=== PATIENT | male | born 1960 | race Caucasian/White ===

== ENCOUNTER 2019-01-29 13:10 | Inpatient (IN) | payer OTHER ==
[2019-01-29] MEDS ORDERED: IPRATROPIUM BROM 0.5MG/2.5ML ONE (14:05)
[2019-01-29] MEDS ORDERED: ALBUTEROL 2.5 MG/3 ML NEB SOL ONE (14:05)
[2019-01-29] MEDS ORDERED: FUROSEMIDE 40 MG/4 ML VIAL ONE (14:15)
[2019-01-29 14:18] LABS: Absolute Lymphocytes (CBC) 0.9 K/uL (0.7-4.9); Absolute Monocytes 0.6 K/uL (0.1-1.3); Absolute Neutrophil 6.9 K/uL (1.8-8.0); Eosinophils % 0.3 % (0-4.4); Lymphocytes % 10.3 % (15.3-44.8); MPV 10.4 fL (7.6-11.3); Monocytes % 7.6 % (3.3-12.3); RBC Red Blood Cell Count 5.86 M/uL (4.33-5.43)
[2019-01-29 14:20] LABS: Protime INR 3.13
[2019-01-29 14:28] LABS: Hematocrit 40.5 % (39.6-49.0)
--- NOTE | 2019-01-29 14:36 | RAD REPORT ---
EXAM DESCRIPTION: [facility] Single View01/29/2019 2:23 pm CLINICAL HISTORY: Chest pain COMPARISON: 2016 FINDINGS: The myles are blurred which may indicate minimal interstitial pulmonary edema. Heart is mod erately enlarged
[2019-01-29 14:43] LABS: ALT/SGPT 17 U/L (12-78); AST/SGOT 21 U/L (15-37); Albumin 3.2 g/dL (3.4-5.0); Alkaline Phosphatase 102 U/L (45-117); BUN Blood Urea Nitrogen 14 mg/dL (7-18); Bicarbonate 35 mmol/L (21-32); Bilirubin Direct 0.5 mg/dL (0-0.2); Bilirubin Total 1.6 mg/dL (0.2-1.0); Glucose Level 88 mg/dL (74-106); Magnesium 1.9 mg/dL (1.8-2.4); NT PRO-BNP 7460 pg/mL (<125); Potassium 4.3 mmol/L (3.5-5.1); Protein, Total 6.6 g/dL (6.4-8.2); Sodium Level 139 mmol/L (136-145); Troponin (Emerg Dept Use Only) < 0.02 ng/mL (0.0-0.045)
[2019-01-29 14:59] LABS: Arterial Blood Carboxyhemoglob 4.5 % (0-1.5); Blood Gas Oxyhemoglobin 91.1 % (94-97)
--- NOTE | 2019-01-29 16:19 | EDPHYS ---
Physician Documentation [facility] Name: Sean Hayden Age: 58 yrs Sex: Male : 1960 Arrival Date: 01/29/2019 Time: 13:13 Bed 3 Private MD: Gene Gomes ED Physician Leandro Soni HPI: 01/29 16:06 This 58 yrs old Male presents to ER via Ambulatory with complaints of gs Breathing Difficulty. 16:06 The patient has shortness of breath at rest. Onset: The symptoms/episode began/occurred gs 3 day(s) ago, and became worse and became persistent. Duration: The symptoms are continuous, and are markedly worse than the original presentation. The patient's shortness of breath is aggravated by exertion. Associated signs and symptoms: Pertinent negatives: chest pain, fever. Severity of symptoms: At their worst the symptoms were incapacitating in the emergency department the symptoms are unchanged. The patient has experienced similar episodes in the past, a few times. Historical: - Allergies: 13:19 No Known Allergies; - Home Meds: 17:44 Xarelto 20 mg oral tab 1 tab once daily [Active]; atorvastatin 40 mg oral tab 1 tab aj1 once daily [Active]; gabapentin 300 mg oral cap 1 cap 3 times per day [Active]; tramadol 50 mg Oral tab 1 tab every 8 hours as needed [Active]; metoprolol tartrate 50 mg Oral tab 1 tab once daily [Active]; amlodipine-benazepril 40-20 mg oral cap 1 cap once daily [Active]; paroxetine HCl 30 mg Oral tab 1 tab once daily [Active]; ProAir HFA 90 mcg/actuation inhalation HFAA 1 puff every 6 hours [Active]; - PMHx: 13:19 Atrial Fib; CHF; COPD; Hypertension; Hyperlipidemia; - PSHx: 13:19 None; hj - Immunization history:: Adult Immunizations up to date. - Social history:: Smoking status: Patient uses tobacco products. - Ebola Screening: : Patient denies travel to an Ebola-affected area in the 21 days before illness onset. ROS: 16:06 All other systems are negative. gs Exam: 16:06 Head/Face: Normocephalic, atraumatic. Eyes: Pupils equal round and reactive to light, gs extra-ocular motions intact. Lids and lashes normal. Conjunctiva and sclera are non-icteric and not injected. Cornea within normal limits. Periorbital areas with no swelling, redness, or edema. ENT: Nares patent. No nasal discharge, no septal abnormalities noted. Tympanic membranes are normal and external auditory canals are clear. Oropharynx with no redness, swelling, or masses, exudates, or evidence of obstruction, uvula midline. Mucous membranes moist. Neck: Trachea midline, no thyromegaly or masses palpated, and no cervical lymphadenopathy. Supple, full range of motion without nuchal rigidity, or vertebral point tenderness. No Meningismus. Chest/axilla: Normal chest wall appearance and motion. Nontender with no deformity. No lesions are appreciated. 16:06 Abdomen/GI: Soft, non-tender, with normal bowel sounds. No distension or tympany. No guarding or rebound. No evidence of tenderness throughout. Back: No spinal tenderness. No costovertebral tenderness. Full range of motion. Skin: Warm, dry with normal turgor. Normal color with no rashes, no lesions, and no evidence of cellulitis. MS/ Extremity: Pulses equal, no cyanosis. Neurovascular intact. Full, normal range of motion. Neuro: Awake and alert, GCS 15, oriented to person, place, time, and situation. Cranial nerves II-XII grossly intact. Motor strength 5/5 in all extremities. Sensory grossly intact. Cerebellar exam normal. Normal gait. 16:06 Constitutional: The patient appears alert, awake, in obvious distress, severely distressed. 16:06 Cardiovascular: Rate: tachycardic, Rhythm: irregularly irregular, Pulses: no pulse deficits are appreciated, Edema: 3+ edema to level of left midcalf and right midcalf. 16:06 ECG was reviewed by the Attending Physician. 16:06 Respiratory: severe repiratory distress is noted, Respirations: tachypnea, Breath sounds: rales, are located in both bases. Vital Signs: 13:19 BP 106 / 70; Pulse 106; Resp 24; Temp 98.5(TE); Pulse Ox 74% on R/A; Weight 167.83 kg; hj Height 5 ft. 9 in. (175.26 cm); Pain 0/10; 13:20 Pulse Ox 65% on R/A; hj 14:00 BP 103 / 71; Pulse 86; Resp 24; Pulse Ox 98% on BiPAP; aj1 14:30 BP 105 / 74; Pulse 81; Resp 22; Temp 98.2(O); Pulse Ox 96% on BiPAP; aj1 15:00 BP 100 / 67; Pulse 62; Resp 24; Pulse Ox 100% on BiPAP; aj1 15:30 BP 95 / 56; Pulse 67; Resp 20; Pulse Ox 98% on BiPAP; aj1 16:00 BP 109 / 66; Pulse 72; Resp 20; Pulse Ox 98% on BiPAP; aj1 16:30 BP 112 / 82; Pulse 66; Resp 22; Pulse Ox 97% on BiPAP; aj1 17:00 BP 108 / 90; Pulse 75; Resp 22; Pulse Ox 99% on BiPAP; aj1 17:29 BP 111 / 94; Pulse 89; Resp 20; Temp 97.0(TE); Pulse Ox 100% on BiPAP; aj1 18:00 BP 107 / 76; Pulse 92; Resp 20; Pulse Ox 97% on BiPAP; aj1 18:33 BP 117 / 62; Pulse 82; Resp 20; Pulse Ox 99% on BiPAP; aj1 19:00 BP 123 / 73; Pulse 82; Resp 20; Pulse Ox 100% on BiPAP; aj1 19:30 BP 115 / 80; Pulse 78; Resp 20; Pulse Ox 95% on BiPAP; aj1 20:00 BP 117 / 75; Pulse 82; Resp 22; Pulse Ox 98% on BiPAP; aj1 20:23 BP 101 / 50; Pulse 88; Resp 22; Pulse Ox 100% on BiPAP; aj1 13:19 Body Mass Index 54.64 (167.83 kg, 175.26 cm) hj 13:20 RT paged for BIPAP hj MDM: 13:43 Patient medically screened. 16:16 Differential diagnosis: CHF exacerbation, Chronic Obstructive Pulmonary Disease gs Myocardial Infarction pneumonia. Data reviewed: vital signs, nurses notes, lab test result(s), EKG, radiologic studies. Counseling: I had a detailed discussion with the patient and/or guardian regarding: the need for further work-up and treatment in the hospital. 01/29 13:46 Order name: Basic Metabolic Panel; Complete Time: 15:48 [facility] 01/29 13:46 Order name: CBC with Diff; Complete Time: 15:48 [facility] 01/29 13:46 Order name: LFT's; Complete Time: 15:48 [facility] 01/29 13:46 Order name: Magnesium; Complete Time: 15:48 [facility] 01/29 13:46 Order name: NT PRO-BNP; Complete Time: 15:48 01/29 13:46 Order name: PT-INR; Complete Time: 15:48 [facility] 01/29 13:46 Order name: Troponin (emerg Dept Use Only); Complete Time: 15:48 [facility] 01/29 13:46 Order name: XRAY Chest (1 view); Complete Time: 15:48 [facility] 01/29 13:46 Order name: Blood Culture Adult (2) [facility] 01/29 13:46 Order name: Lactate; Complete Time: 15:48 [facility] 01/29 13:48 Order name: BIPAP 01/29 14:28 Order name: ABG; Complete Time: 15:48 01/29 15:43 Order name: Lactate; Complete Time: 16:43 [facility] 01/29 19:49 Order name: Lactate Sepsis 2 HR Follow-up [facility] 01/29 13:46 Order name: EKG; Complete Time: 13:48 [facility] 01/29 13:46 Order name: Cardiac monitoring; Complete Time: 13:47 [facility] 01/29 13:46 Order name: EKG - Nurse/Tech; Complete Time: 14:07 [facility] 01/29 13:46 Order name: IV Saline Lock; Complete Time: 13:47 [facility] 01/29 13:46 Order name: Labs collected and sent; Complete Time: 13:47 [facility] 01/29 13:46 Order name: O2 Per Protocol; Complete Time: 13:47 01/29 13:46 Order name: O2 Sat Monitoring; Complete Time: 13:47 [facility] EC:06 Rate is 85 beats/min. Rhythm is irregularly irregular, A fib. QRS interval is normal. gs QT interval is normal. T waves are Flattened. Clinical impression: Abnormal EKG without significant change. Interpreted by me. Administered Medications: 14:06 Drug: Albuterol - atroVENT (3:1) (2.5 mg - 0.5 mg) 3 ml Route: Nebulizer; aj1 15:10 Follow up: Response: No adverse reaction aj1 14:06 Drug: Lasix 80 mg Route: IVP; Site: left antecubital; [facility] 15:10 Follow up: Response: No adverse reaction aj1 Disposition: 16:16 Critical Care:. Disposition: 01/29/19 16:18 Hospitalization ordered by Alonso Barton for Inpatient Admission. Preliminary diagnosis are Acute respiratory failure, Acute systolic (congestive) heart failure. - Bed requested for Telemetry/MedSurg (Inpatient). - Status is Inpatient Admission. [facility] - Condition is Stable. - Problem is new. - Symptoms have improved. UTI on Admission? No Critical care time excluding procedures: 16:16 Critical care time: Bedside Care: 10 minutes, Consultation: 10 minutes, Family gs Intervention: 10 minutes. Total time: 30 minutes Signatures: Dispatcher [employer] EDCayla Sarabia RN RN aj Steve Duncan RN RN Leandro Soni MD MD Tonia Jordan Corrections: (The following items were deleted from the chart) 17:55 16:18 Hospitalization Ordered by Alonso Barton MD for Inpatient Admission. Preliminary eb diagnosis is Acute respiratory failure; Acute systolic (congestive) heart failure. Bed requested for Telemetry/MedSurg (Inpatient). Status is Inpatient Admission. Condition is Stable. Problem is new. Symptoms have improved. UTI on Admission? No. 20:24 17:55 01/29/2019 16:18 Hospitalization Ordered by Alonso Barton MD for Inpatient [facility] Admission. Preliminary diagnosis is Acute respiratory failure; Acute systolic (congestive) heart failure. Bed requested for Telemetry/MedSurg (Inpatient). Status is Inpatient Admission. Condition is Stable. Problem is new. Symptoms have improved. UTI on Admission? No. eb
--- NOTE | 2019-01-29 16:19 | ER ---
Nurse's Notes [facility] Name: Sean Hayden Age: 58 yrs Sex: Male : 1960 Arrival Date: 01/29/2019 Time: 13:13 Bed 3 Private MD: Gene Gomes Diagnosis: Acute respiratory failure;Acute systolic (congestive) heart failure Presentation: 01/29 13:17 Presenting complaint: Patient states: hx of COPD using CPAP, i have this SOB for 3-4 hj weeks ago and its getting worse; reports fever and chills; reports bilateral leg swelling; denies chest pain;. Transition of care: patient was not received from another setting of care. Onset of symptoms was January 29, 2019. Risk Assessment: Do you want to hurt yourself or someone else? Patient reports no desire to harm self or others. Initial Sepsis Screen: Does the patient meet any 2 criteria? No. Patient's initial sepsis screen is negative. Does the patient have a suspected source of infection? No. Patient's initial sepsis screen is negative. Care prior to arrival: None. 13:17 Method Of Arrival: Ambulatory 13:17 Acuity: IHSAN 1 hj 13:38 Acuity: IHSAN 1 aj1 Triage Assessment: 13:25 Respiratory: Onset: The symptoms/episode began/occurred suddenly, the patient has aj1 severe shortness of breath. Historical: - Allergies: 13:19 No Known Allergies; hj - Home Meds: 17:44 Xarelto 20 mg oral tab 1 tab once daily [Active]; atorvastatin 40 mg oral tab 1 tab aj1 once daily [Active]; gabapentin 300 mg oral cap 1 cap 3 times per day [Active]; tramadol 50 mg Oral tab 1 tab every 8 hours as needed [Active]; metoprolol tartrate 50 mg Oral tab 1 tab once daily [Active]; amlodipine-benazepril 40-20 mg oral cap 1 cap once daily [Active]; paroxetine HCl 30 mg Oral tab 1 tab once daily [Active]; ProAir HFA 90 mcg/actuation inhalation HFAA 1 puff every 6 hours [Active]; - PMHx: 13:19 Atrial Fib; CHF; COPD; Hypertension; Hyperlipidemia; hj - PSHx: 13:19 None; hj - Immunization history:: Adult Immunizations up to date. - Social history:: Smoking status: Patient uses tobacco products. - Ebola Screening: : Patient denies travel to an Ebola-affected area in the 21 days before illness onset. Screenin:48 Abuse screen: Denies threats or abuse. Denies injuries from another. Nutritional aj1 screening: No deficits noted. Tuberculosis screening: No symptoms or risk factors identified. 18:13 Fall Risk No fall in past 12 months (0 pts). Secondary diagnosis (15 points) impaired aj1 mobility, IV access (20 points). Ambulatory Aid- None/Bed Rest/Nurse Assist (0 pts). Gait- Impaired (20 pts.). Mental Status- Oriented to own ability (0 pts). Total Kerr Fall Scale indicates High Risk Score (45 or more points). Frequent Obs/Assessments Occuring Family Present and informed to notify staff if the need to leave the bedside. Assessment: 13:25 Reassessment: Patient is 65% on 3L nc, patient was immediately placed on aj1 Non-rebreather, O2 sat up to 95%. 13:30 Reassessment: provider in room;. hj 13:30 General: Appears distressed, Behavior is calm, cooperative. Pain: Denies pain. Neuro: aj1 Level of Consciousness is awake, alert, obeys commands, Oriented to person, place, time, situation. Cardiovascular: Reports shortness of breath, Denies chest pain, Heart tones S1 S2 present Rhythm is irregular. Respiratory: Reports shortness of breath Airway is patent Respiratory effort is even, labored, Respiratory pattern is regular, symmetrical, tachypnea Breath sounds with rhonchi bilaterally. Breath sounds with wheezes. GI: Abdomen is round distended, Abd is soft and non tender X 4 quads. : No signs and/or symptoms were reported regarding the genitourinary system. EENT: No signs and/or symptoms were reported regarding the EENT system. Derm: Skin is healthy with good turgor, Skin is dry, Skin is dusky, perioral cyanosis noted. Musculoskeletal: No signs and/or symptoms reported regarding the musculoskeletal system. Circulation, motion, and sensation intact. 13:32 Reassessment: informed sec to page RT for BIPAP;. hj 13:37 Reassessment: RT at bedside, patient placed on Bi-PAP, O2 sat maintaining in upper aj1 90's. Patient is alert, oriented and talkative at this time. 14:00 Reassessment: Patient and/or family updated on plan of care and expected duration. Pain aj1 level reassessed. General: Appears in no apparent distress. comfortable, Behavior is calm, cooperative, appropriate for age. Pain: Denies pain. Neuro: Level of Consciousness is awake, alert, obeys commands. Cardiovascular: Rhythm is irregular. Respiratory: Airway is patent Respiratory effort is even, unlabored, Respiratory pattern is regular, symmetrical. Derm: Skin is dusky, perioral cyanosis no longer noted. 15:05 Reassessment: Patient and/or family updated on plan of care and expected duration. Pain aj1 level reassessed. General: Appears in no apparent distress. comfortable, Behavior is calm, cooperative, appropriate for age. Pain: Denies pain. Neuro: Level of Consciousness is awake, alert, obeys commands, Oriented to person, place, time, situation. Cardiovascular: Rhythm is irregular. Respiratory: Airway is patent Respiratory effort is even, unlabored, Respiratory pattern is regular, symmetrical. Derm: Skin is pink, warm \T\ dry. normal. Musculoskeletal: Circulation, motion, and sensation intact. 16:10 Reassessment: Patient appears in no apparent distress at this time. No changes from aj1 previously documented assessment. Patient and/or family updated on plan of care and expected duration. Pain level reassessed. Patient is alert, oriented x 3, equal unlabored respirations, skin warm/dry/pink. 17:10 Reassessment: Patient appears in no apparent distress at this time. No changes from aj1 previously documented assessment. Patient and/or family updated on plan of care and expected duration. Pain level reassessed. Patient is alert, oriented x 3, equal unlabored respirations, skin warm/dry/pink. Dr. Barton at bedside. 18:12 Reassessment: Patient and/or family updated on plan of care and expected duration. Pain aj1 level reassessed. General: Appears in no apparent distress. comfortable, Behavior is calm, cooperative, appropriate for age. Pain: Denies pain. Neuro: Level of Consciousness is awake, alert, obeys commands, Oriented to person, place, time, situation. Cardiovascular: Patient's skin is warm and dry. Rhythm is atrial fibrillation. Respiratory: Airway is patent Respiratory effort is even, unlabored, Respiratory pattern is regular, symmetrical. Derm: Skin is pink, warm \T\ dry. normal. Musculoskeletal: Circulation, motion, and sensation intact. 18:15 Reassessment: Attempted to call reports to GARY Petit on 4th floor, equal opportunity director aj1 states that nurse is in a room and will call back for report. 19:15 Reassessment: Patient appears in no apparent distress at this time. No changes from aj1 previously documented assessment. Patient and/or family updated on plan of care and expected duration. Pain level reassessed. Patient is alert, oriented x 3, equal unlabored respirations, skin warm/dry/pink. 20:21 Reassessment: Patient and/or family updated on plan of care and expected duration. Pain aj1 level reassessed. Reassessment: Patient was taken off of Bi-PAP by RT and placed on O2 \T\6L nc for transport upstairs. Patient was transported up stairs via wheelchair by FELIZ Santiago. General: Appears in no apparent distress. comfortable, Behavior is calm, cooperative, appropriate for age. Pain: Denies pain. Neuro: Level of Consciousness is awake, alert, obeys commands, Oriented to person, place, time, situation. Cardiovascular: Patient's skin is warm and dry. Rhythm is atrial fibrillation. Respiratory: Airway is patent Respiratory effort is even, unlabored, Respiratory pattern is regular, symmetrical. Derm: Skin is pink, warm \T\ dry. normal. Vital Signs: 13:19 BP 106 / 70; Pulse 106; Resp 24; Temp 98.5(TE); Pulse Ox 74% on R/A; Weight 167.83 kg; hj Height 5 ft. 9 in. (175.26 cm); Pain 0/10; 13:20 Pulse Ox 65% on R/A; hj 14:00 BP 103 / 71; Pulse 86; Resp 24; Pulse Ox 98% on BiPAP; aj1 14:30 BP 105 / 74; Pulse 81; Resp 22; Temp 98.2(O); Pulse Ox 96% on BiPAP; aj1 15:00 BP 100 / 67; Pulse 62; Resp 24; Pulse Ox 100% on BiPAP; aj1 15:30 BP 95 / 56; Pulse 67; Resp 20; Pulse Ox 98% on BiPAP; aj1 16:00 BP 109 / 66; Pulse 72; Resp 20; Pulse Ox 98% on BiPAP; aj1 16:30 BP 112 / 82; Pulse 66; Resp 22; Pulse Ox 97% on BiPAP; aj1 17:00 BP 108 / 90; Pulse 75; Resp 22; Pulse Ox 99% on BiPAP; aj1 17:29 BP 111 / 94; Pulse 89; Resp 20; Temp 97.0(TE); Pulse Ox 100% on BiPAP; aj1 18:00 BP 107 / 76; Pulse 92; Resp 20; Pulse Ox 97% on BiPAP; aj1 18:33 BP 117 / 62; Pulse 82; Resp 20; Pulse Ox 99% on BiPAP; aj1 19:00 BP 123 / 73; Pulse 82; Resp 20; Pulse Ox 100% on BiPAP; aj1 19:30 BP 115 / 80; Pulse 78; Resp 20; Pulse Ox 95% on BiPAP; aj1 20:00 BP 117 / 75; Pulse 82; Resp 22; Pulse Ox 98% on BiPAP; aj1 20:23 BP 101 / 50; Pulse 88; Resp 22; Pulse Ox 100% on BiPAP; aj1 13:19 Body Mass Index 54.64 (167.83 kg, 175.26 cm) hj 13:20 RT paged for BIPAP hj ED Course: 13:13 Patient arrived in ED. rg4 13:14 Gene Gomes MD is Private Physician. rg4 13:18 Triage completed. hj 13:19 Arm band placed on right wrist. hj 13:25 Leandro Soni MD is Attending Physician. gs 13:30 Cayla Jean, GARY is Primary Nurse. aj1 13:30 Inserted saline lock: 18 gauge in left antecubital area, using aseptic technique. Blood aj1 collected. 13:30 Initial lab(s) drawn, by me, sent to lab. First set of blood cultures drawn by me. aj1 13:53 EKG done, by valve technician. reviewed by Leandro Soni MD. at1 14:19 X-ray completed. Portable x-ray completed in exam room. Patient tolerated procedure mh1 well. 14:21 XRAY Chest (1 view) In Process Unspecified. EDMS 15:49 Patient has correct armband on for positive identification. aj1 16:17 Alonso Barton MD is Hospitalizing Provider. gs 18:13 No provider procedures requiring assistance completed. Patient admitted, IV remains in aj1 place. 18:48 Report given to GARY Petit on 4th floor. aj1 Administered Medications: 14:06 Drug: Albuterol - atroVENT (3:1) (2.5 mg - 0.5 mg) 3 ml Route: Nebulizer; aj1 15:10 Follow up: Response: No adverse reaction aj 14:06 Drug: Lasix 80 mg Route: IVP; Site: left antecubital; aj1 15:10 Follow up: Response: No adverse reaction aj1 Outcome: 16:18 Decision to Hospitalize by Provider. gs 20:23 Admitted to Tele accompanied by tech, via wheelchair, with oxygen, with chart. aj1 20:23 Condition: improved 20:23 Discharge instructions given to patient, Instructed on the need for admit, Demonstrated understanding of instructions. 20:24 Patient left the ED. aj1 Signatures: Dispatcher [employer] EDMS Cayla Jean RN RN aj1 Tigist Madsen 1 Berkley Duran, story editor EKG Tat1 Steve Duncan RN RN hj Garcia, Rubi 4 Leandro Soni MD MD Corrections: (The following items were deleted from the chart) 13:33 13:32 Reassessment: informed sec to page RT for BIPAP; [facility] 14:02 13:17 Acuity: IHSAN 3 [facility] 15:47 14:00 BP 103 / 71; Pulse 86bpm; Resp 24bpm; Pulse Ox 98% BiPAP; [place] [id number] 15:47 14:30 BP 105 / 74; Pulse 81bpm; Resp 22bpm; Pulse Ox 96% BiPAP; Temp 98.2F Oral; [place] [id number] 15:50 14:30 BP 105 / 74; Pulse 81bpm; Resp 22bpm; Pulse Ox 96% RA; Temp 98.2F Oral; [place] [id number] 15:50 14:00 BP 103 / 71; Pulse 86bpm; Resp 24bpm; Pulse Ox 98% RA; [place] [id number] 15:50 15:30 BP 95 / 56; Pulse 67bpm; Resp 20bpm; Pulse Ox 98% RA; [place] [id number] 15:50 15:00 BP 100 / 67; Pulse 62bpm; Resp 24bpm; Pulse Ox 100% RA; [place] [id number]
[2019-01-29] MEDS ORDERED: ONDANSETRON 4 MG/2 ML VIAL IV PRN (20:45)
[2019-01-29] MEDS ORDERED: ACETAMINOPHEN 500 MG TAB PO PRN (20:45)
[2019-01-29] MEDS: METOPROLOL TAR 50 MG TAB PO SCH (21:00)
--- NOTE | 2019-01-30 04:33 | HP ---
Date of Admission: 01/29/2019 Primary Care Physician: Dr. Gomes. Consultants: Dr. Harden with Cardiology. Chief Complaint: Shortness of breath. History Of Present Illness: The patient is a 58-year-old male with past medical history of congestiv e heart failure; atrial fibrillation, on anticoagulation; COPD; hypertension, who was in his usual [facility] until 3 days prior to admission when the patient had sudden onset of shortness of breat h gradually worsening and becoming more persistent. The patient's symptoms are moderate, continuous, and similar to his previous. The patient said his shortness of breath was worse with exertion. The patient states he is able to take his medications as prescribed. Denies any chest pain, fever, chil ls, nausea, or vomiting. No cough or sputum production. The patient decided to come to the emergenc y department for further evaluation. Upon arrival, his O2 saturations were in the 60s. He was place d on BiPAP, which improved his symptoms. Workup showed an elevated lactate. White cell count was no rmal. ABG showed pH is 7.5, pCO2 was 43, pO2 was 77, bicarb was 33. His chest x-ray was consistent with pulmonary edema. The patient was given 80 mg of Lasix which improved his condition. The patien t was then referred for admission. When seen in the ER, he was awake, alert, oriented x3, in respira tory distress, on BiPAP. Past Medical History: Atrial fibrillation, on anticoagulation; COPD; congestive heart failure; cance r of the lips; hypertension; hyperlipidemia; GERD; depression. The patient has also had KS. Past Surgical History: None. Allergies: NO KNOWN DRUG ALLERGIES. Medications: List reviewed. Social History: The patient is a former smoker. No current alcohol use. Lives at home. Family History: Father had lung disease, COPD. Mother also had lung disease. Review of Systems: 10-point systems reviewed, negative except as per HPI. Physical Examination: Vital Signs: Blood pressure 106/70, pulse 106, respirations 24, temperature 98.5. O2 74% on room ai r, as low as 65% on room air, improved to 97% on BiPAP. HEENT: Normocephalic, atraumatic. PERRLA. EOMI. Dry mucous membranes. Oropharynx is clear. Conj unctivae are anicteric. Neck: Supple. The patient has jugular venous distention. Trachea midline. CV: S1, S2. Peripheral pulses present. Respiratory: Diminished breath sounds. Crackles present. The patient is tachypneic with use of acc essory muscles. Gastrointestinal: Abdomen is soft, nontender, nondistended. Positive bowel sounds. Extremities: No clubbing, cyanosis. The patient has 2+ peripheral edema bilaterally. No calf tende rness. Neuro: Cranial nerves 2 through 12 intact grossly. No focal neurological deficit. Speech is normal . Skin: No rashes. The patient has chronic venous stasis changes of lower extremities. Psych: Mood is somewhat anxious. Affect is congruent with mood. Insight and judgment are fair. Labs: WBC 8.6, H and H 13.2/40.5, platelets 129, neutrophils 80%. INR is 3.13. ABG; pH 7.5, pCO2 4 3, pO2 77, bicarb 33. Sodium 139, potassium 4.3, chloride 98, CO2 35, BUN 14, creatinine 1.01, gluco se 88. Lactic acid 2.3, repeat lactate 1.6. Calcium 8.5, magnesium 1.9. BNP 7460. Troponin less t singh 0.02. Blood cultures pending. Chest x-ray shows myles blurred, may indicate minimal interstitial pulmonary edema. Heart is moderately enlarged. Assessment: 1.Acute respiratory failure secondary to congestive heart failure. The patient currently requiring BiPAP, somewhat improved with Lasix. We will continue to monitor. Place on continuous pulse oximete r. 2.Acute congestive heart failure exacerbation. The patient has history of diastolic dysfunction. 3.Mild pulmonary hypertension. 4.Morbid obesity. 5.Metabolic acidosis. 6.Microcytic anemia likely due to iron deficiency. 7.Atrial fibrillation, chronic, on anticoagulation. INR is supratherapeutic at this time. 8.Chronic obstructive pulmonary disease, chronic bronchitis. We will start on albuterol p.r.n. 9.Essential hypertension, stable. We will resume home medications as appropriate. 10.Deep vein thrombosis prophylaxis. The patient is already on anticoagulation. Plan: Admit the patient to Med-Surg, place as inpatient. We will consult Cardiology. We will start on CHF guidelines with beta damon, EMIR inhibitor, and continue with Lasix. We will monitor I's an d O's. Strictly daily weights. Length of stay greater than 2 midnights. ELISE Voice ID: [id number]
[2019-01-30 06:02] LABS: Absolute Lymphocytes (CBC) 0.6 K/uL (0.7-4.9); Absolute Monocytes 0.5 K/uL (0.1-1.3); Basophils % 0.9 % (0-1.3); Eosinophils % 0.5 % (0-4.4); Lymphocytes % 8.6 % (15.3-44.8); MPV 9.2 fL (7.6-11.3); Monocytes % 7.5 % (3.3-12.3); RBC Red Blood Cell Count 5.59 M/uL (4.33-5.43)
[2019-01-30 06:22] LABS: Potassium 3.8 mmol/L (3.5-5.1)
--- NOTE | 2019-01-30 08:30 | EKG ---
Test Date: 2019-01-29 Test Time: 13:53:03 Photogrammetric Tech: LUKE MEASUREMENT RESULTS: Intervals: Rate: 85 OH: QRSD: 98 QT: 364 QTc: 433 Sparks: P: OH: QRS: 14 T: -5 INTERPRETIVE STATEMENTS: Atrial fibrillation Low voltage QRS Incomplete right bundle branch block ST & T wave abnormality, consider anterior ischemia or digitalis effect Abnormal ECG Compared to ECG 05/25/2016 12:42:23 Ventricular premature complex(es) no longer present Electronically Signed On 01-30-19 08:29:11 CDT by Neeraj Johnson
[2019-01-30] MEDS ORDERED: POTASSIUM CL SA 10 MEQ TAB PO ONE (09:00)
[2019-01-30] MEDS ORDERED: LISINOPRIL 10 MG TAB PO SCH (09:00)
[2019-01-30] MEDS: FUROSEMIDE 40 MG/4 ML VIAL IV SCH ×2 (09:00→17:53)
[2019-01-30] MEDS: METOPROLOL TAR 50 MG TAB PO SCH ×2 (09:00→21:00)
[2019-01-30] MEDS: ALBUTEROL 2.5 MG/3 ML NEB SOL NEB PRN ×2 (09:08→14:05)
[2019-01-30] MEDS ORDERED: TRAMADOL HCL 50 MG TAB PO PRN (09:50)
[2019-01-30] MEDS ORDERED: HOME MED 1 EA UNK (Amlodipine Besylate/Benazepril [Amlodipine-Benazepril 10-20 Mg] 1 EACH) PO SCH (09:50)
[2019-01-30] MEDS: PARoxetine HCl 10 MG TAB PO SCH (11:09)
[2019-01-30] MEDS: RIVAROXABAN 20 MG TABLET PO SCH (11:09)
[2019-01-30] MEDS: AMLODIPINE 10 MG TAB PO SCH (11:09)
--- NOTE | 2019-01-30 13:25 | CON ---
History Of Present Illness: Mr. Hayden is a 58-year-old who came to the hospital with dyspnea. He now feels better. He receives some diuretics, and feels better. Mr. Hayden has chronic atrial fib. He is on Xarelto and metoprolol to control the heart rate and prevent strokes. He has underlying h ypertension, morbid obesity. He is a continuing cigarette smoker, also has obstructive lung disease. His dyspnea was fairly brief duration 2 or 3 days, getting worse. He noted more swelling in his fe et. Outpatient Medications: Amlodipine 10, benazepril 20, metoprolol 50, tramadol 50, Xarelto 20, gabape ntin 300 t.i.d., atorvastatin 40, paroxetine. Physical Examination: Vital Signs: 5 feet 9 inches, 370 pounds. Lungs: Few basilar crackles. Heart: Irregular heart rate in the 70s. No significant murmur or gallop. Abdomen: Soft. Extremities: Reveal a lot of changes. There is a chronic venous stasis changes. There is a healed and scabbed over ulcer on his right aguirre. Distal pulses are easily palpable on the right, diminished on the left. Impression: The patient had heart failure, probably from dietary noncompliance. I would probably se nd him home on daily Lasix, teach him about sodium restriction. Overall, his prognosis is very poor as long as he continues to be so obese and smoke, but I doubt if there is much we can do, but the johnnie son for the hospitalization was congestive heart failure, which is now greatly improved. He is ready to be discharged fairly soon. RICK Voice ID: [id number] Report ID: [id number]
[2019-01-30] MEDS: IPRATROPIUM BROM 0.5MG/2.5ML NEB SCH ×2 (14:05→19:55)
[2019-01-30] MEDS: GABAPENTIN 300 MG CAP PO SCH ×2 (14:32→21:48)
--- NOTE | 2019-01-30 15:56 | ECHO ---
HEIGHT: 5 ft 9 in WEIGHT: 370 lb 0 oz DATE OF STUDY: 01/30/[address]: Alonso Barton MD 2-DIMENSIONAL: YES M.MODE: YES DOPPLER: YES COLOR FLOW: YES TDS: YES PORTABLE: NO DEFINITY: NO BUBBLE STUDY: NO DIAGNOSIS: CONGESTIVE HEART FAILURE CARDIAC HISTORY: CATHERIZATION: NO SURGERY: NO PROSTHETIC VALVE: NO PACEMAKER: NO MEASUREMENTS (cm) DIASTOLIC (NORMALS) SYSTOLIC (NORMALS) IVSd 1.3 (0.6-1.2) LA Diam 4.3 (1.9-4.0) LVEF 55% LVIDd 5.0 (3.5-5.7) LVIDs 3.5 (2.0-3.5) %FS 29% LVPWd 1.3 (0.6-1.2) Ao Diam 2.5 (2.0-3.7) 2 DIMENSIONAL ASSESSMENT: RIGHT ATRIUM: NORMAL LEFT ATRIUM: DILATED RIGHT VENTRICLE: NORMAL LEFT VENTRICLE: LEFT VENTRICULAR HYPERTROPHY TRICUSPID VALVE: NORMAL MITRAL VALVE: NORMAL PULMONIC VALVE: NORMAL AORTIC VALVE: NORMAL PERICARDIAL EFFUSION: NONE AORTIC ROOT: NORMAL LEFT VENTRICULAR WALL MOTION: NORMAL DOPPLER/COLOR FLOW: TECHNICALLY DIFFICULT STUDY. NO AORTIC STENOSIS, AORTIC REGURGITATION OR MITRAL REGURGITATION. COMMENTS: NORMAL LEFT VENTRICULAR EJECTION FRACTION. LEFT VENTRICULAR HYPERTROPHY. DILATED LEFT ATRIUM. ATRIAL FIBRILLATION. TECHNICALLY DIFFICULT STUDY. TECHNOLOGIST: Dejuan ARIAS
--- NOTE | 2019-01-30 16:46 | PN ---
Date of Progress Note: 01/30/2019 Subjective: The patient is seen and examined. Chart reviewed and case discussed with RN. The patie nt continued BiPAP last night. Still requiring BiPAP. States his shortness of breath is slightly be tter. Swelling is going down. Medications: List reviewed. Physical Examination: Vital Signs: Temperature 97.6, heart rate 95, blood pressure 91/61, respirations 28, O2 84% on BiPAP , 60% FiO2. General: Awake, alert, oriented x3. Appears older than stated age. Morbidly obese male. CV: S1, S2 irregularly irregular. Respiratory: Diminished breath sounds. Some wheezing heard. Crackles present. Gastrointestinal: Abdomen is soft, nontender, nondistended. Positive bowel sounds. Extremities: No clubbing, cyanosis. The patient has 3+ edema to bilateral lower extremities. Skin: Chronic venous stasis changes. Neurologic: Nonfocal. Laboratory Data: Sodium 142, potassium 3.8, chloride 99, CO2 38. BUN 15, creatinine 0.93, glucose 1 00, calcium 8.1, magnesium 2. WBC 7.3, H and H 12.6 and 42, platelets 98, neutrophils 82%. Assessment And Plan: A 58-year-old male with: 1.Acute respiratory failure secondary to congestive heart failure, currently on BiPAP. We will cont inue to wean as tolerated. 2.Acute diastolic heart failure exacerbation. We will repeat echocardiogram. We will continue on c ongestive heart failure guidelines. Cardiology has been consulted. We will monitor I's and O's and continue daily weights. Sodium restriction and fluid restriction. 3.Mild pulmonary hypertension. 4.Morbid obesity, BMI 54, counseled. 5.Metabolic acidosis, improved. Lactate is normalized. 6.Microcytic anemia, likely due to iron deficiency. Continue to monitor H and H, transfuse if neede d. 7.Chronic atrial fibrillation, rate controlled on Xarelto. 8.Chronic obstructive pulmonary disease, chronic bronchitis. The patient does have some wheezing, m ay be getting into an acute exacerbation. We will continue albuterol nebulizers. We will give some steroids as well. 9.Essential hypertension, stable. Resume home medications. 10.Deep vein thrombosis prophylaxis. The patient is already on Xarelto. SA/MODL Voice ID: [id number] Report ID: [id number]
[2019-01-30] MEDS: ATORVASTATIN 40 MG TAB PO SCH (21:48)
[2019-01-30] MEDS: METHYLPREDNISOLONE 40 MG INJ IV SCH (21:48)
[2019-01-31] MEDS: IPRATROPIUM BROM 0.5MG/2.5ML NEB SCH ×4 (02:00→20:00)
[2019-01-31 06:35] LABS: Absolute Lymphocytes (CBC) 0.4 K/uL (0.7-4.9); Absolute Monocytes 0.1 K/uL (0.1-1.3); Absolute Neutrophil 4.9 K/uL (1.8-8.0); Basophils % 0.2 % (0-1.3); Lymphocytes % 7.4 % (15.3-44.8); MPV 9.8 fL (7.6-11.3); Monocytes % 1.6 % (3.3-12.3); RBC Red Blood Cell Count 5.69 M/uL (4.33-5.43)
[2019-01-31 06:40] LABS: BUN Blood Urea Nitrogen 12 mg/dL (7-18); Glucose Level 128 mg/dL (74-106); Potassium 4.4 mmol/L (3.5-5.1); Sodium Level 142 mmol/L (136-145)
[2019-01-31 06:41] LABS: Bicarbonate 42 mmol/L (21-32)
[2019-01-31] MEDS: ALBUTEROL 2.5 MG/3 ML NEB SOL NEB PRN (07:50)
[2019-01-31 08:22] LABS: Platelet Estimate DECR; Urine White Blood Cell Casts OK
[2019-01-31 08:23] LABS: Anisocytosis 1+; Blood Morphology Comment NOTED (NOT SEEN); Poikilocytosis 1+
[2019-01-31] MEDS: METOPROLOL TAR 50 MG TAB PO SCH ×2 (09:00→20:22)
[2019-01-31] MEDS: AMLODIPINE 10 MG TAB PO SCH (09:55)
[2019-01-31] MEDS: GABAPENTIN 300 MG CAP PO SCH ×3 (09:57→20:22)
[2019-01-31] MEDS: BENAZEPRIL 20 MG TAB PO SCH (09:57)
[2019-01-31] MEDS: PARoxetine HCl 10 MG TAB PO SCH (09:57)
[2019-01-31] MEDS: POTASSIUM CL SA 10 MEQ TAB PO SCH (09:58)
[2019-01-31] MEDS: METHYLPREDNISOLONE 40 MG INJ IV SCH ×2 (09:59→20:23)
[2019-01-31] MEDS: FUROSEMIDE 40 MG/4 ML VIAL IV SCH ×2 (10:00→16:48)
[2019-01-31] MEDS: RIVAROXABAN 20 MG TABLET PO SCH (10:02)
--- NOTE | 2019-01-31 13:08 | PN ---
Mr. Hayden seems to be doing better with diuresis. His ejection fraction is normal. He has diastol ic dysfunction, morbid obesity, atrial fib, all causing fluid retention. Perhaps he should go home o n a higher dose of Lasix. Overall, his prognosis is very poor. Really the only way to foresee any w ay that he could have a better prognosis would be for him to lose at least 100 pounds of his body kashif ght and stop smoking. He is at risk of heart and vascular disease that will be lethal if he does not make those changes. At this point, he is stable enough to be discharged home. CARMEN/PARVEEN Voice ID: [id number] Report ID: [id number]
--- NOTE | 2019-01-31 16:02 | PN ---
Date of Progress Note: 01/31/2019 Subjective: The patient is seen and examined, chart reviewed and case discussed with RN. The patient is still having significant shortness of breath , becomes hypoxic when taken off BiPAP. Medications: List reviewed. Physical Examination: Vital Signs: Temperature 97.1, heart rate 100, blood pressure 97/61, respirations 19, and O2 94% on 75% FiO2 on BiPAP. General: Awake, alert, oriented x3, in mild respiratory distress, morbidly obese male. CV: S1 and S2, irregularly irregular. Peripheral pulses diminished. Respiratory: Diminished breath sounds and crackles present. Gastrointestinal: Abdomen is soft, nontender, and nondistended. Positive bowel sounds. No guarding or rigidity. Extremities: No clubbing or cyanosis. The patient has 2+ edema, bilateral lower extremities. Neurologic: Nonfocal. Laboratory Data: Sodium 142, potassium 4.4, chloride 98, CO2 42, BUN 12, creatinine 0.85, glucose 128, calcium 8.5. WBC 5.4, H and H 13 and 43, platelets 99, neutrophils 90%. Blood cultures, no growth to date. Echocardiogram shows EF of 55%, left ventricular hypertrophy, dilated left atrium. Assessment: A 58-year-old male with: 1. Acute respiratory failure secondary to congestive heart failure. We will continue on BiPAP for now, difficult to wean, the patient becomes very hypoxic. 2. Acute diastolic heart failure exacerbation. Ejection fraction is 55%. Continue congestive heart failure guidelines. Monitor daily weights. Apparently, the patient's initial weight on intake was a reported weight, not from scale, therefore the discrepancy between initial and today's weight. 3. Mild pulmonary hypertension. 4. Hypertensive heart disease. 5. Morbid obesity, BMI 54. 6. Metabolic acidosis, improved. 7. Microcytic anemia due to iron deficiency. Continue to monitor H and H, transfuse if hemoglobin less than 7. 8. Chronic atrial fibrillation, rate controlled, currently on Xarelto for anticoagulation. 9. Chronic obstructive pulmonary disease, chronic bronchitis. Continue nebulizer treatments. Continue steroids. 10. Essential hypertension, stable. 11. Deep vein thrombosis prophylaxis, the patient is on Xarelto. Plan: Continue to wean off BiPAP, likely discharge in the next 24-48 hours depending on clinical response. /PARVEEN Voice ID: [id number] Report ID: [id number] MTDD
[2019-01-31 17:25] VITALS: BMI 49.8
[2019-01-31] MEDS: ATORVASTATIN 40 MG TAB PO SCH (20:22)
[2019-01-31] MEDS: MELATONIN 3 MG TABLET PO PRN (22:50)
[2019-02-01] MEDS: IPRATROPIUM BROM 0.5MG/2.5ML NEB SCH ×4 (02:00→19:50)
[2019-02-01 05:14] LABS: Absolute Lymphocytes (CBC) 0.3 K/uL (0.7-4.9); Absolute Monocytes 0.1 K/uL (0.1-1.3); Absolute Neutrophil 6.2 K/uL (1.8-8.0); Basophils % 0.3 % (0-1.3); Hematocrit 40.1 % (39.6-49.0); Lymphocytes % 4.9 % (15.3-44.8); MPV 9.4 fL (7.6-11.3); Monocytes % 1.6 % (3.3-12.3); RBC Red Blood Cell Count 5.37 M/uL (4.33-5.43)
[2019-02-01 05:32] LABS: BUN Blood Urea Nitrogen 13 mg/dL (7-18); Bicarbonate 38 mmol/L (21-32); Glucose Level 159 mg/dL (74-106); Sodium Level 139 mmol/L (136-145)
[2019-02-01] MEDS: ALBUTEROL 2.5 MG/3 ML NEB SOL NEB PRN ×3 (08:05→19:50)
[2019-02-01] MEDS: POTASSIUM CL SA 10 MEQ TAB PO SCH (09:12)
[2019-02-01] MEDS: METOPROLOL TAR 50 MG TAB PO SCH ×2 (09:12→21:11)
[2019-02-01] MEDS: AMLODIPINE 10 MG TAB PO SCH (09:13)
[2019-02-01] MEDS: RIVAROXABAN 20 MG TABLET PO SCH (09:13)
[2019-02-01] MEDS: BENAZEPRIL 20 MG TAB PO SCH (09:13)
[2019-02-01] MEDS: GABAPENTIN 300 MG CAP PO SCH ×3 (09:13→21:11)
[2019-02-01] MEDS: PARoxetine HCl 10 MG TAB PO SCH (09:14)
[2019-02-01] MEDS: METHYLPREDNISOLONE 40 MG INJ IV SCH ×2 (09:14→21:11)
[2019-02-01] MEDS: FUROSEMIDE 40 MG/4 ML VIAL IV SCH ×2 (09:14→16:42)
--- NOTE | 2019-02-01 15:06 | PN ---
Date of Progress Note: 02/01/2019 Subjective: Patient seen and examined. Chart reviewed and case discussed with RN. The patient was initially on 6 liters via nasal cannula; however, throughout the day has progressively gotten worse, unable to be weaned down to his home level of O2. The patient now requiring Venturi mask, unable to ambulate at all. Medications: List reviewed. Physical Examination: Vital Signs: Temperature 97.5, heart rate 86, blood pressure 93/60, respirations 18, O2 is 93% on 15 liters via Ventimask. General: Awake, alert, and oriented x3, appears older than stated age, in some mild respiratory dist ress, morbidly obese male. CV: S1, S2, irregularly irregular. Peripheral pulses weak. Respiratory: Diminished breath sounds. Rhonchi heard. No use of accessory muscles. No stridor. Gastrointestinal: Abdomen is soft, nontender, nondistended. Positive bowel sounds. No guarding or rigidity. Extremities: No clubbing, cyanosis. The patient has 2+ edema in bilateral lower extremities. Neurologic: Nonfocal. Laboratory Data: Sodium 139, potassium 4, chloride 97, CO2 38, BUN 13, creatinine 0.7, glucose 159, and calcium 8.5. WBC 6.6, H and H 12.1 and 48.1, platelets 95, neutrophils 93%. Blood cultures, no growth to date. Sputum culture is pending. Assessment And Plan: A 58-year-old male with; 1.Acute respiratory failure secondary to congestive heart failure and chronic obstructive pulmonary disease. The patient now back onto Ventimask, difficult to wean, patient unable to ambulate at all. 2.Acute diastolic heart failure exacerbation. EF 55%. Continue diuresis. CHF guidelines. Appreci ate Dr. Johnson' input. The patient's fluid balance is negative. 3.Chronic obstructive pulmonary disease, chronic bronchitis, may be starting to develop an acute exa cerbation. Continue IV steroids and nebulizer treatments. We will consult Pulmonology. 4.Chronic atrial fibrillation, rate controlled. Continue Xarelto. 5.Microcytic anemia due to iron deficiency. We will continue to monitor H and H, transfuse as neede d. 6.Metabolic acidosis, improved. 7.Morbid obesity, BMI 54. 8.Essential hypertension, stable. 9.Deep venous thrombosis prophylaxis. The patient on Xarelto. SA/MODL Voice ID: [id number] Report ID: [id number]
[2019-02-01] MEDS: DULERA 100/5 (MOMETASONE/FORMOTEROL) INHALER IH SCH ×2 (16:42→21:11)
[2019-02-01] MEDS: MELATONIN 3 MG TABLET PO PRN (21:11)
[2019-02-01] MEDS: ATORVASTATIN 40 MG TAB PO SCH (21:11)
[2019-02-02] MEDS: IPRATROPIUM BROM 0.5MG/2.5ML NEB SCH ×4 (02:00→19:50)
[2019-02-02] MEDS: PARoxetine HCl 10 MG TAB PO SCH (09:10)
[2019-02-02] MEDS: DULERA 100/5 (MOMETASONE/FORMOTEROL) INHALER IH SCH (09:10)
[2019-02-02] MEDS: FUROSEMIDE 40 MG/4 ML VIAL IV SCH ×2 (09:10→16:07)
[2019-02-02] MEDS: METHYLPREDNISOLONE 40 MG INJ IV SCH (09:10)
[2019-02-02] MEDS: GABAPENTIN 300 MG CAP PO SCH ×3 (09:10→21:14)
[2019-02-02] MEDS: AMLODIPINE 10 MG TAB PO SCH (09:10)
[2019-02-02] MEDS: RIVAROXABAN 20 MG TABLET PO SCH (09:11)
[2019-02-02] MEDS: POTASSIUM CL SA 10 MEQ TAB PO SCH (09:11)
[2019-02-02] MEDS: BENAZEPRIL 20 MG TAB PO SCH (09:11)
[2019-02-02] MEDS: METOPROLOL TAR 50 MG TAB PO SCH ×2 (09:11→21:14)
[2019-02-02] MEDS: ARFORMOTEROL TARTRATE 15 MCG/2 ML VIAL.NEB NEB SCH ×2 (13:35→19:49)
[2019-02-02 13:58] LABS: Arterial Blood Carboxyhemoglob 1.9 % (0-1.5); Blood Gas Oxyhemoglobin 87.6 % (94-97); Blood O2 Saturation 89.8 % (92-98.5)
--- NOTE | 2019-02-02 17:05 | P.CNS ---
Date of Consult: 02/02/19 Reason for Consult: Respiratory failure COPD Chief Complaint: Shortness of breath History of Present Illness: Patient is 58 years of age with a history of COPD heavy 2 pack-a-day smoker was admitted with worsening right-sided redness in his right leg worsening shortness of breath he was found to be hypoxic hypercapnic respiratory failure with worsening lower extremity edema has a history of LA about 5 years ago history of COPD patient takes Spiriva at home also complains of back pain radiating to his left history of sleep apnea compliant with his CPAP patient does have oxygen at home also complaining of testicular swelling you do Allergies No Known Allergies Allergy (Verified 01/30/19 02:48) Home Medications: Amlodipine Besylate/Benazepril [Amlodipine-Benazepril 10-20 mg] 1 each PO DAILY 01/30/19 Atorvastatin Calcium [Lipitor] 40 mg PO BEDTIME 01/30/19 Gabapentin 300 mg PO TID 01/30/19 Metoprolol Tartrate [Lopressor*] 50 mg PO DAILY 01/30/19 Paroxetine HCl [Paxil] 30 mg PO DAILY 01/30/19 Rivaroxaban [Xarelto*] 20 mg PO DAILY 01/30/19 Tramadol HCl [Ultram] 50 mg PO Q8H PRN 01/30/19 Furosemide [Lasix] 40 mg PO DAILY #30 tab 02/02/19 Mometasone/Formoterol [Dulera 100 Mcg/5 Mcg Inhaler] 2 puff IH BID #1 inhaler Spironolactone [Aldactone] 25 mg PO DAILY #30 tab 02/02/19 predniSONE [Deltasone] 10 mg PO BID #10 tab 02/02/19 - Past Medical/Surgical History Diabetic: No -: cancer of lips -: COPD -: CHF -: afib - Family History Father Medical History: Lung disease, Other (see notes) Notes: COPD Mother Medical History: Lung disease - Social History Smoking Status: Current every day smoker Alcohol use: No CD- Drugs: No Caffeine use: No Place of Residence: Home Review of Systems General: Weakness Respiratory: Cough, Shortness of Breath Cardiovascular: Edema Physical Examination Temp Pulse Resp BP Pulse Ox 97.6 F 77 14 116/74 93 02/02/19 12:00 02/02/19 12:00 02/02/19 12:00 02/02/19 16:07 02/02/19 12:00 General: Alert, Oriented x3 HEENT: Atraumatic Neck: Supple Respiratory: Expiratory wheezes Cardiovascular: Edema (3+ edema extremities changes on lower extremity right worse than left appears to be chronic), Irregular heart rate/rhythm Gastrointestinal: Normal bowel sounds, Soft and benign - Problems (1) Respiratory failure Current Visit: Yes Status: Acute Plan: Patient admitted with acute on chronic respiratory failure history of COPD smokes 2 packs a day hypoxic hypercapnic patient's echo shows left ventricular hypertrophy most likely diastolic dysfunction chest x-ray of suggestive of some volume overload he needs to continue with the Spiriva at home Hada brought Wanna or Dulera not both patient had been console not to smoke needs at least 4- 5 L of nasal cannula oxygen in addition to diuretics follow with me in 2 weeks he does have sleep apnea currently on CPAP Qualifiers: Chronicity: acute on chronic
[2019-02-02] MEDS: MELATONIN 3 MG TABLET PO PRN (21:14)
[2019-02-02] MEDS: ATORVASTATIN 40 MG TAB PO SCH (21:14)
[2019-02-02] MEDS: predniSONE 20 MG TAB PO SCH (21:14)
[2019-02-03] MEDS: IPRATROPIUM BROM 0.5MG/2.5ML NEB SCH ×3 (01:15→16:00)
[2019-02-03] MEDS: ALBUTEROL 2.5 MG/3 ML NEB SOL NEB PRN (01:15)
--- NOTE | 2019-02-03 04:50 | DS ---
Date of Discharge: 02/02/2019 Consultants: Dr. Castano with Pulmonology, Dr. Johnson with Cardiology. Procedures: None. Admitting Diagnoses: 1.Acute respiratory failure. 2.Acute congestive heart failure exacerbation. 3.Acute chronic obstructive pulmonary disease. 4.Morbid obesity, BMI 50. 5.Atrial fibrillation, controlled ventricular rate. 6.Mild pulmonary hypertension. 7.Metabolic acidosis. 8.Microcytic anemia due to iron deficiency. 9.Essential hypertension. Discharge Diagnoses: 1.Acute on chronic respiratory failure, resolved. The patient uses 4 and to 4.5 L at home secondary to chronic obstructive pulmonary disease and congestive heart failure. 2.Acute diastolic heart failure exacerbation, EF 55%, improved. 3.Chronic obstructive pulmonary disease with acute exacerbation, improving. 4.Chronic atrial fibrillation, rate controlled on Xarelto. 5.Microcytic anemia due to iron deficiency, stable. 6.Metabolic acidosis resolved. 7.Morbid obesity, BMI of 54. 8.Essential hypertension, stable. 9.Lymphedema. 10.Nicotine dependence with cigarette smoking, continues. Hospital Course: The patient is a 58-year-old male with CHF, AFib, COPD, hypertension comes in with shortness of breath. The patient had elevated BNP. O2 saturations were in the 60s. He is on home o xygen at around 4 L. The patient was placed on BiPAP. The patient was acidotic. His chest x-ray re vealed pulmonary edema and interstitial changes. He was started on CHF guidelines and was diuresed. The patient responded well to treatment. He was seen by Cardiology, Dr. Johnson. Echocardiogram was also done which showed EF of 55%. The patient does have mild pulmonary hypertension. He was counse led regarding his tobacco use and was recommended to have weight loss bariatric surgery and to improv e his diet and exercise regimen. The patient voiced understanding. The patient also developed acute COPD exacerbation. He was started on steroids and nebulizer treatme nts. Dr. Castano was consulted. The patient was difficult to wean off BiPAP, did require Ventimask as well. The patient was finally able to be weaned, still requiring about 5 L O2, which is a little bit higher than his baseline. The patient was able to ambulate with physical therapy, did not get s hort of breath. Saturations remained in the 90s with 5 L of O2. The patient overall did well and reeder s been cleared for discharge. He was sent home in a stable condition. Activity: As tolerated. Medications: As per medication reconciliation list. Diet: Low-sodium diet with having 1500 mL fluid restriction. Followup: Follow up with primary care physician in 2-3 days. Follow up with [facility] machine operator, Dr. Jeniffer dunne in 2 weeks. Follow up with executive admin, Dr. Castano in 2 weeks. Return to ER for worsening con dition. Medications: As per medication reconciliation list. Physical Examination: Vital signs: Stable, afebrile. General: Awake, alert, oriented, morbidly obese male. CV: S1, S2. Irregularly irregular. Respiratory: Diminished breath sounds, improving. No wheezing. Gastrointestinal: Abdomen is soft, nontender, nondistended. Positive bowel sounds. Extremities: No clubbing, cyanosis. The patient has peripheral edema. Neurologic: Nonfocal. Skin: Chronic venous stasis changes. Total time spent discharging the patient was 34 minutes. /PARVEEN Voice ID: [id number] Report ID: [id number]
[2019-02-03] MEDS: ARFORMOTEROL TARTRATE 15 MCG/2 ML VIAL.NEB NEB SCH (08:15)
[2019-02-03] MEDS: BENAZEPRIL 20 MG TAB PO SCH (08:36)
[2019-02-03] MEDS: POTASSIUM CL SA 10 MEQ TAB PO SCH (08:37)
[2019-02-03] MEDS: predniSONE 20 MG TAB PO SCH (08:38)
[2019-02-03] MEDS: AMLODIPINE 10 MG TAB PO SCH (08:38)
[2019-02-03] MEDS: PARoxetine HCl 10 MG TAB PO SCH (08:38)
[2019-02-03] MEDS: METOPROLOL TAR 50 MG TAB PO SCH (08:38)
[2019-02-03] MEDS: RIVAROXABAN 20 MG TABLET PO SCH (08:38)
[2019-02-03] MEDS: GABAPENTIN 300 MG CAP PO SCH ×2 (08:39→13:52)
[2019-02-03] MEDS: FUROSEMIDE 40 MG/4 ML VIAL IV SCH (08:39)
--- NOTE | 2019-02-03 08:48 | P.PN ---
Subjective Date of Service: 02/03/19 Chief Complaint: Shortness of breath Subjective: Improving (Patient is improving edema has declined shortness of breath slightly better he still requiring significant amount of oxygen) Review of Systems General: Weakness Respiratory: Shortness of Breath Physical Examination - Vital Signs Temperature: 97.2 F Blood Pressure: 127/60 Pulse: 74 Respirations: 16 Pulse Ox (%): 97 - Physical Exam General: Alert, Oriented x2 Respiratory: Diminished, Expiratory wheezes Cardiovascular: Edema Assessment & Plan - Problems (Diagnosis) (1) Respiratory failure Current Visit: Yes Status: Acute Plan: Patient is somewhat better continue with present medication and diuretics is scheduled to be discharged today he is to go home on Spiriva and Dulera continue using CPAP patient again advice not to smoke these are 2 pack-a-day smoker patient is in negative fluid balance scheduled to have portable oxygen labs reviewed Qualifiers: Chronicity: acute on chronic
[2019-02-03] MEDS ORDERED: FUROSEMIDE 40 MG/4 ML VIAL IV SCH (09:00)
--- NOTE | 2019-02-03 15:06 | P.PN ---
Subjective Date of Service: 02/03/19 Chief Complaint: Shortness of breath Subjective: No C/O voiced Patient seen and examined at bedside. No family at bedside. Chart reviewed and case discussed with nursing staff. No acute events noted overnight Patient reports no complaints this morning. Discharge is pending home oxygen set up. Review of Systems 10-point ROS is otherwise unremarkable Physical Examination - Vital Signs Temperature: 97.7 F Blood Pressure: 109/53 Pulse: 106 Respirations: 14 Pulse Ox (%): 90 - Physical Exam General: Alert, In no apparent distress, Oriented x3 HEENT: Atraumatic, PERRLA, EOMI Neck: Supple, JVD not distended Respiratory: Clear to auscultation bilaterally, Diminished Cardiovascular: Regular rate/rhythm, Normal S1 S2, Edema (Pedal) Gastrointestinal: Normal bowel sounds, No tenderness Musculoskeletal: No tenderness Integumentary: Other (Chronic venous stasis changes) Neurological: Normal speech, Normal tone, Normal affect Lymphatics: No axilla or inguinal lymphadenopathy - Studies Microbiology Data (last 24 hrs): 01/29/19 13:47 Blood - Blood Aerobic Blood Culture - Final No growth in 5 days. 01/29/19 13:47 Blood - Blood Anaerobic Blood Culture - Final No growth in 5 days. 01/29/19 13:30 Blood - Blood Aerobic Blood Culture - Final No growth in 5 days. 01/29/19 13:30 Blood - Blood Anaerobic Blood Culture - Final No growth in 5 days. Assessment And Plan - Plan Patient was discharged yesterday, discharge was held due to home oxygen set up. Patient remained stable overnight, no acute events noted. Patient reports no complaints prior to discharge. He was discharged in a stable manner today, after home oxygen was set up and delivered to the hospital room. Please see discharge summary for further details
[2019-02-03 16:31] VITALS: BP 103/68; TEMP 98.7
[2019-02-03 16:51] VITALS: O2SAT 94
== END 2019-02-03 18:25 | disposition home or self-care (01) | DRG 291 ==
LOC: ER 13:10 → ERHOLD 16:40 → 4TH 19:30
PROVIDERS: ADMIT Family Medicine; ATTEND Family Medicine
PROC: 5A09457 Assistance with Respiratory Ventilation, 24-96 Consecutive Hours, Continuous Positive Airway Pressure (ICD-10-PCS; principal; 2019-01-29)
DX: I50.33 Acute on chronic diastolic (congestive) heart failure (principal); J96.22 Acute and chronic respiratory failure with hypercapnia; J96.21 Acute and chronic respiratory failure with hypoxia; Z68.42 Body mass index [BMI] 45.0-49.9, adult; E87.2 Acidosis; J44.1 Chronic obstructive pulmonary disease with (acute) exacerbation; I11.0 Hypertensive heart disease with heart failure; I48.2 Chronic atrial fibrillation; I27.20 Pulmonary hypertension, unspecified; E66.01 Morbid (severe) obesity due to excess calories; J44.9 Chronic obstructive pulmonary disease, unspecified; D50.9 Iron deficiency anemia, unspecified; I25.2 Old myocardial infarction; Z87.891 Personal history of nicotine dependence; F17.210 Nicotine dependence, cigarettes, uncomplicated; Z79.01 Long term (current) use of anticoagulants
CPT/HCPCS: 36415; 71045; 80048; 80076; 82805; 83605; 83735; 83880; 84484; 85025; 85610; 87040; 87070; 87205; 93005; 93306; 94640; 94660; 94760; 96374; 97110; 97116; 97163; 99291; 99292; J1940; J2920; J7512; J7605; J7606

== ENCOUNTER 2019-04-08 05:55 | Day surgery (SDC) | payer OTHER ==
--- NOTE | 2019-04-07 17:08 | RAD REPORT ---
EXAM DESCRIPTION: RAD - Chest Pa And Lat (2 Views) - 04/07/2019 5:00 pm CLINICAL HISTORY: Preop chest, pending soft tissue mass removal COMPARISON: January 2019, May 2016 TECHNIQUE: PA and lateral views of the chest were obtained. FINDINGS: The lungs are normal volume. Lung markings are prominent at each base. This is a pattern s een on 2 prior studies. Lung base pneumonia is not suspected. No failure or volume overload. No suspi cion for mass. Hilar regions are similar to comparison. Heart size is normal and central vasculature is within nor mal limits. No pleural effusion or pneumothorax seen. No acute bony finding noted. No aortic abnor mality. IMPRESSION: No acute cardiopulmonary process. No significant change from comparison.
[2019-04-07 17:52] LABS: Absolute Lymphocytes (CBC) 1.2 K/uL (0.7-4.9); Basophils % 0.5 % (0-1.3); Hematocrit 46.1 % (39.6-49.0); Lymphocytes % 16.1 % (15.3-44.8); RBC Red Blood Cell Count 5.86 M/uL (4.33-5.43)
[2019-04-07 18:07] LABS: BUN Blood Urea Nitrogen 10 mg/dL (7-18); Bicarbonate 36 mmol/L (21-32); Glucose Level 96 mg/dL (74-106); Potassium 3.8 mmol/L (3.5-5.1); Sodium Level 144 mmol/L (136-145)
[2019-04-08] MEDS ORDERED: ALBUTEROL 2.5 MG/3 ML NEB SOL ONE (06:42)
[2019-04-08] MEDS ORDERED: Ringers Lactate 1,000 ML IV ONE (06:47)
[2019-04-08] MEDS ORDERED: CEFAZOLIN/SWI 1gm 1 GM/10 ML SYR ONE (06:47)
[2019-04-08] MEDS ORDERED: ROCURONIUM 50 MG/5 ML VIAL IV ONE (07:31)
[2019-04-08] MEDS ORDERED: PROPOFOL 200 MG/20 ML VIAL IV ONE (07:31)
[2019-04-08] MEDS ORDERED: FENTANYL CITR 100 MCG/2 ML ONE (07:31)
[2019-04-08] MEDS ORDERED: LIDOCAINE 1% MPF 5 ML VIAL ONE ×2 (07:31→07:32)
[2019-04-08] MEDS ORDERED: KETOROLAC 30 MG/ML INJ ONE (08:14)
[2019-04-08] MEDS ORDERED: ONDANSETRON 4 MG/2 ML VIAL ONE (08:14)
--- NOTE | 2019-04-08 08:22 | P.BOP ---
Preoperative diagnosis: Left posterior tender thigh subQ mass 4x3 cm Postoperative diagnosis: same Primary procedure: Excisional biopsy Left posterior tender thigh subQ mass 4x3 cm Fountain Brush Assembler: ROSAURA BIRD (CANDLE WRAPPER) Estimated blood loss: <10cc Specimen: mass Findings: fatty tumor Anesthesia: General Complications: None Transferred to: Recovery Room Condition: Good
[2019-04-08] MEDS ORDERED: SUCCINYLCHOLINE 20 MG/ML (10 ML) IV ONE (08:42)
[2019-04-08 09:23] VITALS: O2SAT 94
[2019-04-08 09:42] VITALS: BP 91/60; TEMP 97.3
--- NOTE | 2019-04-09 17:51 | OP ---
Date of Procedure: 04/08/2019 Surgeon: Steve Nelson MD Records Management Associate: Azucena Jasmine. Preoperative Diagnosis: Left posterior tender thigh subcutaneous mass, 4 x 3 cm. Postoperative Diagnosis: Left posterior tender thigh subcutaneous mass, 4 x 3 cm. Procedure: Excisional biopsy of left posterior tender thigh subcutaneous mass, 4 x 3 cm. Specimen: Mass. Anesthesia: General plus local. Indications: This is the case of a 59-year-old patient, who came to us with a mass over the subcutan eous tissues on the left posterior thigh tender, discomfort, every now and then he sees some drainage from that area. It is not draining at this moment. It is tender. He wants that excised. The bene fits, alternatives, and risks of excision were fully explained which include but are not limited to i nfection, bleeding, damage to adjacent structures, anesthesia complication, recurrence, [place], and even . He also understands this may not relieve the symptoms. He might need more than one surgical intervention. He understands and signed the consent. The area of concern was marked by me and the p atient in the holding room. Description Of Procedure: The patient was brought to the operating room, placed in supine position. Anesthesia was done without complication. The patient was placed in lithotomy position since this i s the way how we can approach the area better. An incision was made in the skin, carried down to kerry p subcutaneous tissue. We noticed a fatty tumor present in that area. We excised that. It goes all the way down to deep subcutaneous tissue and then we proceeded after obtaining hemostasis and irriga tion, I am not palpating any other masses. I proceeded to close the area with 3-0 chromic deep and t hen more superficial chromic and then nylon on the skin. Areas were covered with sterile dressings. The patient tolerated the procedure well. The patient was sent to recovery in stable condition. ARTURO/PARVEEN Voice ID: [id number] Report ID: [id number]
--- NOTE | 2019-04-09 17:57 | DS ---
Date of Discharge: 04/08/2019 Diagnosis: Left posterior tender thigh subcutaneous mass, 4 x 3 cm. Procedure: Excisional biopsy of left posterior tender thigh subcutaneous mass, 4 x 3 cm. Disposition: Home. Activity: As tolerated. No heavy lifting. Followup: Follow up in my office in 1 week. Call for appointment on [phone]. Keep area dry for 48 hours, then may shower. Medications: See orders. ARTURO/PARVEEN Voice ID: [id number] Report ID: [id number]
== END 2019-04-08 09:35 | disposition home or self-care (01) ==
LOC: OR 05:55
PROVIDERS: ATTEND Surgery
PROC: 0JBM0ZZ Excision of Left Upper Leg Subcutaneous Tissue and Fascia, Open Approach (ICD-10-PCS; principal; 2019-04-08 07:30)
DX: D17.24 Benign lipomatous neoplasm of skin and subcutaneous tissue of left leg (principal); I48.91 Unspecified atrial fibrillation; I11.0 Hypertensive heart disease with heart failure; I50.9 Heart failure, unspecified; E78.5 Hyperlipidemia, unspecified; J44.9 Chronic obstructive pulmonary disease, unspecified; E66.01 Morbid (severe) obesity due to excess calories; Z99.81 Dependence on supplemental oxygen; Z79.01 Long term (current) use of anticoagulants; Z79.52 Long term (current) use of systemic steroids; Z79.899 Other long term (current) drug therapy
CPT/HCPCS: 27337; 85025; 80048; 36415; 88304; 71046; 94640; J2704; J0330; J3010; J0690; J2405

== ENCOUNTER 2021-12-06 10:08 | Inpatient (IN) | payer MEDICARE, OTHER ==
[2021-12-06 10:33] LABS: Lymphocytes % 8.8 % (15.3-44.8); MPV 9.6 fL (7.6-11.3); RBC Red Blood Cell Count 6.28 M/uL (4.33-5.43)
[2021-12-06] MEDS ORDERED: MAGNESIUM SULFATE 1 gm IVPB 1 GM/100 ML BAG IV ONE (10:36)
[2021-12-06] MEDS ORDERED: METHYLPREDNISOLONE 125 MG INJ ONE ×2 (10:36→11:15)
[2021-12-06] MEDS ORDERED: LEVALBUTEROL 0.63 MG/3 ML NEB ONE (10:36)
[2021-12-06 10:40] LABS: Protime INR 2.07
[2021-12-06 10:53] LABS: Potassium 5.1 mmol/L (3.5-5.1)
--- NOTE | 2021-12-06 11:03 | RAD REPORT ---
EXAM DESCRIPTION: RAD - Chest Single View - 12/06/2021 10:50 am CLINICAL HISTORY: DYSPNEA Chest pain. COMPARISON: Chest Pa And Lat (2 Views) dated 04/07/2019; Chest Single View dated 01/29/2019; Chest Sin gle View dated 05/25/2016; Chest Single View dated 05/17/2016 FINDINGS: Portable technique limits examination quality. Moderate bilateral pulmonary opacities are present compatible with pulmonary edema. The heart is quit e prominent in size. No displaced fractures. IMPRESSION: Moderate CHF.
[2021-12-06] MEDS ORDERED: FUROSEMIDE 40 MG/4 ML VIAL ONE (11:15)
[2021-12-06] MEDS ORDERED: NA CHLORIDE 0.9% 500 ML ONE ×2 (11:52→13:12)
--- NOTE | 2021-12-06 12:15 | ER ---
Nurse's Notes [facility] Name: Sean Hayden Age: 61 yrs Sex: Male : 1960 Arrival Date: 12/06/2021 Time: 10:10 Bed 4 Private MD: Diagnosis: Unspecified combined systolic (congestive) and diastolic (congestive) heart failure;Acute pulmonary edema;Persistent atrial fibrillation;COPD/ Chronic obstructive pulmonary disease with (acute) exacerbation;Hypoxemia Presentation: 12/06 10:19 Initial Sepsis Screen: Does the patient meet any 2 criteria? RR > 20 per min. HR > 90 ap3 bpm. Yes Does the patient have a suspected source of infection? No. Patient's initial sepsis screen is negative. Risk Assessment: Do you want to hurt yourself or someone else? Patient reports no desire to harm self or others. Onset of symptoms was December 03, 2021. Care prior to arrival: Oxygen administered. via nasal cannula. 10:19 Acuity: IHSAN 2 ap3 10:28 Chief complaint: EMS states: they were called to a home of the patient due to patient ap3 c/o shortness of breath for a few days. EMS reports they found the patient on the floor next to his bed, because he had rolled off and couldn't get back up into the bed. EMS states the patients O2 was 79% on room air. Upon arrival to the ED, patients O2 was 66%. Coronavirus screen: Ebola Screen: No symptoms or risks identified at this time. 10:28 Method Of Arrival: EMS: [facility] ap3 Triage Assessment: 10:21 Derm: Skin is blue in the face around the mouth and nose. ap3 10:34 General: Appears distressed, Behavior is calm, cooperative. Pain: Denies pain. Neuro: ap3 Level of Consciousness is awake, alert, obeys commands, Oriented to person, place, time, situation. Respiratory: Airway is patent Respiratory effort is even, labored, Respiratory pattern is tachypnea. Historical: - Allergies: 10:31 No Known Allergies; ap3 - PMHx: 10:31 Atrial Fib; CHF; COPD; Hyperlipidemia; Hypertension; ap3 - Immunization history:: Adult Immunizations unknown. - Social history:: Smoking status: unknown. - Family history:: not pertinent. - Hospitalizations: : No recent hospitalization is reported. Screenin:37 Abuse screen: Denies threats or abuse. Nutritional screening: No deficits noted. ap3 Tuberculosis screening: No symptoms or risk factors identified. Fall Risk Fall in past 12 months (25 points). Secondary diagnosis (15 points) IV access (20 points). Ambulatory Aid- None/Bed Rest/Nurse Assist (0 pts). Gait- Weak (10 pts.). Mental Status- Oriented to own ability (0 pts). Total Kerr Fall Scale indicates High Risk Score (45 or more points). Fall prevention measures have been instituted. Side Rails Up X 2 Placed Close to Nursing Station Frequent Obs/Assessments Occuring As available patient and family educated on Fall Prevention Program and Strategies. Assessment: 11:08 Reassessment: Dr. Black notified of critical lab. Lactate 3.5. ss 11:57 Reassessment: RT is at bedside. ap3 13:19 Reassessment: Patient and/or family updated on plan of care and expected duration. Pain ap3 level reassessed. Patient is alert, oriented x 3, equal unlabored respirations, skin warm/dry/pink. 14:20 Reassessment: Lactic redraw on hold until after fluids completed. jg9 Vital Signs: 10:19 BP 94 / 80; Pulse 120; Resp 21; Pulse Ox 66% on R/A; ap3 10:33 Temp 97.7(O); Weight 129.73 kg; Height 5 ft. 10 in. (177.80 cm); ap3 10:42 Pulse 129; Resp 26; Pulse Ox 97% on Non-rebreather mask; ap3 11:06 BP 134 / 101; Pulse 126; Resp 28; Pulse Ox 91% on 4 lpm NC; ap3 11:55 Pulse Ox 83% on 4 lpm NC; ap3 12:00 BP 90 / 66; Pulse 100; Resp 28 S; Pulse Ox 88% on 15% Non-rebreather mask; jg9 12:08 Pulse 109; rn 12:30 BP 89 / 58; Pulse 97; Resp 26; Pulse Ox 94% on BiPAP; jg9 13:18 BP 101 / 72; Pulse 103; Pulse Ox 98% on R/A; ap3 10:33 Body Mass Index 41.04 (129.73 kg, 177.80 cm) ap3 11:55 at this time patient was placed back on the non-rebreather. Provider notified and new ap3 orders received. RT was paged. ED Course: 10:10 Patient arrived in ED. bd 10:11 Renny Black MD is Attending Physician. rn 10:20 Initial lab(s) drawn, by nh, sent to lab. First set of blood cultures drawn. Inserted ap3 saline lock: 20 gauge in right antecubital area, using aseptic technique. Blood collected. 10:28 Celia Monroe, RN is Primary Nurse. jg9 10:31 Triage completed. ap3 10:37 EKG done, by ED staff, reviewed by Renny Black MD. em1 10:38 Arm band placed on left wrist. EKG completed in triage. Results shown to MD. ap3 10:38 Patient has correct armband on for positive identification. Bed in low position. Call ap3 light in reach. Side rails up X2. threat monitoring analyst on. Pulse ox on. NIBP on. Door closed. Noise minimized. 10:51 XRAY CXR (1 view) In Process Unspecified. EDMS 11:00 Inserted saline lock: 22 gauge in right hand, using aseptic technique. jg9 11:22 Placed in gown. Warm blanket given. ap3 11:57 bariatric bed ordered, confirmation number [id number]. bd 12:13 Tess Munguia MD is Hospitalizing Provider. rn 14:20 No provider procedures requiring assistance completed. jg9 15:35 Patient admitted, IV remains in place. jg9 Administered Medications: 10:55 Drug: Xopenex (levalbuterol) (3) 1.25 mg Route: Inhalation; jg9 10:58 Drug: SOLU-Medrol (methylPrednisoLONE) 125 mg Route: IVP; Site: right hand; jg9 11:45 Follow up: Response: No adverse reaction ap3 10:59 Drug: Magnesium Sulfate 1 grams Route: IVPB; Infused Over: 1 hrs; Site: right jg9 antecubital; 13:05 Follow up: IV Status: Completed infusion; IV Intake: 100ml ap3 11:24 Drug: Lasix (furosemide) 40 mg Route: IVP; Site: right antecubital; jg9 11:45 Follow up: Response: No adverse reaction ap3 11:54 Drug: NS 0.9% 500 ml Route: IV; Rate: bolus; Site: right antecubital; ap3 13:04 Follow up: IV Status: Completed infusion; IV Intake: 500ml ap3 12:31 Drug: LevaQUIN (levofloxacin) 500 mg Volume: 100 ml; Route: IVPB; Infused Over: 60 ss7 mins; Site: right hand; 14:41 Follow up: IV Status: Completed infusion ap3 Intake: 13:04 IV: 500ml; Total: 500ml. ap3 13:05 IV: 100ml; Total: 600ml. ap3 Outcome: 12:14 Decision to Hospitalize by Provider. rn 15:34 Admitted to Med/surg accompanied by tech, via stretcher, with oxygen. jg9 15:34 Condition: stable jg9 15:35 Patient left the ED. jg9 Signatures: Dispatcher [employer] EDMS Jessica Bynum Roman, MD MD rn Martinez, Eric em1 Rashida Kumari RN RN ss Berkley Buckner RN RN ap3 Celia Monroe RN RN jg9 Liya Thomas RN RN ss7
--- NOTE | 2021-12-06 12:15 | EDPHYS ---
Physician Documentation [facility] Name: Sean Hayden Age: 61 yrs Sex: Male : 1960 Arrival Date: 12/06/2021 Time: 10:10 Bed 4 Private MD: ED Physician Renny Black HPI: 12/06 10:17 This 61 yrs old Male presents to ER via Unassigned with complaints of sob. rn 10:17 The patient has shortness of breath at rest. Onset: The symptoms/episode began/occurred rn 1 week(s) ago. Duration: The symptoms are continuous. The patient's shortness of breath is aggravated by exertion, light activity, talking. Severity of symptoms: At their worst the symptoms were moderate in the emergency department the symptoms are unchanged. The patient has experienced similar episodes in the past. The patient has not recently seen a physician. Pt reports atleast 1 week of sob, worse this AM, "had rough night", called 911, denies fever, reports diarrhea. Denies chest pain. Not on home oxygen. O2 sat 70% upon arrival.. Historical: - Allergies: 10:31 No Known Allergies; ap3 - PMHx: 10:31 Atrial Fib; CHF; COPD; Hyperlipidemia; Hypertension; ap3 - Immunization history:: Adult Immunizations unknown. - Social history:: Smoking status: unknown. - Family history:: not pertinent. - Hospitalizations: : No recent hospitalization is reported. ROS: 10:17 Constitutional: Negative for fever, chills, and weight loss, Eyes: Negative for injury, rn pain, redness, and discharge, Neck: Negative for injury, pain, and swelling, Cardiovascular: Negative for chest pain, palpitations Respiratory: + sob Abdomen/GI: Negative for abdominal pain, + diarrhea, no blood in stool Back: Negative for injury and pain, MS/Extremity: Negative for injury and deformity, Skin: Negative for injury, rash, and discoloration, Neuro: Negative for headache, weakness, numbness, tingling, and seizure. Exam: 10:17 Constitutional: Overweight male, laying on his side, mild perioral cyanosis Head/Face: rn Normocephalic, atraumatic. Eyes: Periorbital areas with no swelling, redness, or edema. Cardiovascular: Tachycardic, irregular. No pulse deficits. Respiratory: + moderate tachypnea, no retractions, + diminished at bases with wheezing. Abdomen/GI: Soft, non-tender Skin: Warm, dry MS/ Extremity: Pulses equal, no cyanosis. Neurovascular intact. Full, normal range of motion. Equal circumference. Neuro: Awake and alert, GCS 15 Vital Signs: 10:19 BP 94 / 80; Pulse 120; Resp 21; Pulse Ox 66% on R/A; ap3 10:33 Temp 97.7(O); Weight 129.73 kg; Height 5 ft. 10 in. (177.80 cm); ap3 10:42 Pulse 129; Resp 26; Pulse Ox 97% on Non-rebreather mask; ap3 11:06 BP 134 / 101; Pulse 126; Resp 28; Pulse Ox 91% on 4 lpm NC; ap3 11:55 Pulse Ox 83% on 4 lpm NC; ap3 12:00 BP 90 / 66; Pulse 100; Resp 28 S; Pulse Ox 88% on 15% Non-rebreather mask; jg9 12:08 Pulse 109; rn 12:30 BP 89 / 58; Pulse 97; Resp 26; Pulse Ox 94% on BiPAP; jg9 13:18 BP 101 / 72; Pulse 103; Pulse Ox 98% on R/A; ap3 10:33 Body Mass Index 41.04 (129.73 kg, 177.80 cm) ap3 11:55 at this time patient was placed back on the non-rebreather. Provider notified and new ap3 orders received. RT was paged. MDM: 10:11 Patient medically screened. rn 12:12 Differential diagnosis: CHF exacerbation, Chronic Obstructive Pulmonary Disease rn Myocardial Infarction pneumonia, Pneumothorax pulmonary edema. Differential diagnosis: Sepsis. Data reviewed: vital signs, nurses notes. Data reviewed: lab test result(s), EKG, radiologic studies, plain films, and as a result, I will admit patient. Counseling: I had a detailed discussion with the patient and/or guardian regarding: the historical points, exam findings, and any diagnostic results supporting the discharge/admit diagnosis, lab results, radiology results, the need for further work-up and treatment in the hospital. Response to treatment: the patient's symptoms have mildly improved after treatment, and as a result, I will admit patient. Admission orders: after a detailed discussion of the patient's condition and case, the admit orders are written by me. 12/06 10:13 Order name: BMP; Complete Time: 11:08 rn 12/06 10:13 Order name: Blood Culture Adult (2) rn 12/06 10:13 Order name: CBC with Diff; Complete Time: 13: rn 12/06 10:13 Order name: NT PRO-BNP; Complete Time: 11: rn 12/06 10:13 Order name: PT-INR; Complete Time: 11: rn 12/06 10:13 Order name: Ptt, Activated; Complete Time: 11: rn 12/06 10:14 Order name: Procalcitonin; Complete Time: 11: rn 12/06 10:14 Order name: Lactate; Complete Time: 11:37 rn 12/06 10:42 Order name: Manual Differential; Complete Time: 13: EDTX 12/06 10:54 Order name: COVID-19 SARS RT PCR (Document "Date of Onset" if Symptomatic); Complete ss Time: 13:12/06 12:31 Order name: ABG Arterial Blood Gas; Complete Time: 13: EDTX 12/06 13:46 Order name: CBC with Automated Diff EDTX 12/06 13:46 Order name: CBC with Automated Diff EDMS 12/06 10:13 Order name: XRAY CXR (1 view); Complete Time: 11: rn 12/06 13:46 Order name: Comprehensive Metabolic Panel EDTX 12/06 13:46 Order name: Comprehensive Metabolic Panel EDTX 12/06 13:46 Order name: Lactate EDTX 12/06 13:46 Order name: Lactate EDTX 12/06 13:46 Order name: Lipid Profile EDTX 12/06 13:46 Order name: Lipid Profile EDTX 12/06 13:46 Order name: Magnesium EDMS 12/06 13:46 Order name: Magnesium EDMS 12/06 13:46 Order name: NT PRO-BNP EDTX 12/06 13:46 Order name: NT PRO-BNP EDTX 12/06 10:13 Order name: EKG; Complete Time: 10:13 rn 12/06 10:13 Order name: Cardiac monitoring; Complete Time: 10:29 rn 12/06 10:13 Order name: EKG - Nurse/Tech; Complete Time: 10:29 rn 12/06 10:13 Order name: IV Saline Lock; Complete Time: 10:29 rn 12/06 10:13 Order name: Labs collected and sent; Complete Time: 10:29 rn 12/06 10:13 Order name: O2 Per Protocol; Complete Time: 10:29 rn 12/06 10:13 Order name: O2 Sat Monitoring; Complete Time: 10:29 rn 12/06 13:46 Order name: CONS Physician Consult EDMS 12/06 13:46 Order name: Heart Healthy EDMS Administered Medications: 10:55 Drug: Xopenex (levalbuterol) (3) 1.25 mg Route: Inhalation; 9 10:58 Drug: SOLU-Medrol (methylPrednisoLONE) 125 mg Route: IVP; Site: right hand; 9 11:45 Follow up: Response: No adverse reaction ap3 10:59 Drug: Magnesium Sulfate 1 grams Route: IVPB; Infused Over: 1 hrs; Site: right 9 antecubital; 13:05 Follow up: IV Status: Completed infusion; IV Intake: 100ml ap3 11:24 Drug: Lasix (furosemide) 40 mg Route: IVP; Site: right antecubital; 9 11:45 Follow up: Response: No adverse reaction ap3 11:54 Drug: NS 0.9% 500 ml Route: IV; Rate: bolus; Site: right antecubital; ap3 13:04 Follow up: IV Status: Completed infusion; IV Intake: 500ml ap3 12:31 Drug: LevaQUIN (levofloxacin) 500 mg Volume: 100 ml; Route: IVPB; Infused Over: 60 ss7 mins; Site: right hand; 14:41 Follow up: IV Status: Completed infusion ap3 Disposition: 12:12 Critical Care:. rn Disposition Summary: 12/06/21 12:14 Hospitalization Ordered Hospitalization Status: Inpatient Admission rn Provider: Tess Munguia rn Location: Telemetry/MedSurg (Inpatient) rn Condition: Fair rn Problem: an acute exacerbation rn Symptoms: have improved rn Bed/Room Type: Standard rn Room Assignment: 225(12/06/21 14:18) dw Diagnosis - Unspecified combined systolic (congestive) and diastolic (congestive) heart failure rn - Acute pulmonary edema rn - Persistent atrial fibrillation rn - COPD/ Chronic obstructive pulmonary disease with (acute) exacerbation rn - Hypoxemia rn Forms: - Medication Reconciliation Form rn - SBAR form internal controls specialist time excluding procedures: 12:12 Critical care time: Bedside Care: 35 minutes, Consultation: 5 minutes. Total time: 40 rn minutes Signatures: Dispatcher [employer] Jessica Shipley Diana, RN RN dw Renny Black MD MD rn Prokisch, Amanda, RN RN ap3 Celia Monroe RN RN jg9 Liya Thomas RN RN ss7 Corrections: (The following items were deleted from the chart) 14:11 12:14 rn adalid 14:18 14:11 228 adalid multani
[2021-12-06 12:25] LABS: Platelet Estimate ADEQ
[2021-12-06 12:26] LABS: Blood Morphology Comment NOTED (NOT SEEN)
[2021-12-06] MEDS ORDERED: Levofloxacin500mg IV 500 MG/100 ML BAG IV ONE (12:26)
[2021-12-06 12:27] LABS: Anisocytosis SLIGHT
[2021-12-06 12:28] LABS: Hypochromasia 2+; Polychromasia SLIGHT; Target Cells FEW
[2021-12-06 12:31] LABS: Arterial Blood Carboxyhemoglob 2.4 % (0-1.5); Blood Gas Oxyhemoglobin 93.7 % (94-97); Blood O2 Saturation 96.9 % (92-98.5)
[2021-12-06] MEDS ORDERED: ONDANSETRON 4 MG/2 ML VIAL IV PRN (13:41)
[2021-12-06] MEDS: ALBUTEROL 2.5 MG/3 ML NEB SOL NEB SCH ×2 (14:00→20:05)
[2021-12-06] MEDS: IPRATROPIUM BROM 0.5MG/2.5ML NEB SCH ×2 (14:00→20:05)
[2021-12-06] MEDS: METHYLPREDNISOLONE 125 MG INJ IV SCH (17:28)
[2021-12-06] MEDS ORDERED: CEFTRIAXONE 1000 MG/VIAL ONE (20:06)
[2021-12-06] MEDS ORDERED: NA CHLORIDE 0.9% 50 ML ONE (20:16)
[2021-12-06] MEDS: CEFTRIAXONE 1,000 MG in NA CHLORIDE 0.9% 50 ML IVPB SCH (20:29)
[2021-12-07] MEDS: METHYLPREDNISOLONE 125 MG INJ IV SCH ×3 (00:32→11:05)
[2021-12-07] MEDS: IPRATROPIUM BROM 0.5MG/2.5ML NEB SCH ×4 (01:10→20:03)
[2021-12-07] MEDS: ALBUTEROL 2.5 MG/3 ML NEB SOL NEB SCH ×4 (01:10→20:03)
[2021-12-07] MEDS ORDERED: ZOLPIDEM TARTRATE 5 MG TABLET PO PRN (02:50)
[2021-12-07 04:26] LABS: Absolute Lymphocytes (CBC) 0.3 K/uL (0.7-4.9); Hematocrit 46.3 % (39.6-49.0); Lymphocytes % 4.6 % (15.3-44.8); MPV 9.4 fL (7.6-11.3); RBC Red Blood Cell Count 5.96 M/uL (4.33-5.43)
[2021-12-07 04:41] LABS: Albumin 2.8 g/dL (3.4-5.0); Bilirubin Total 0.8 mg/dL (0.2-1.0); Magnesium 2.3 mg/dL (1.8-2.4); Potassium 4.9 mmol/L (3.5-5.1); Protein, Total 6.1 g/dL (6.4-8.2)
[2021-12-07] MEDS ORDERED: DIGOXIN 0.25 MG/ML AMP IV ONE (06:08)
--- NOTE | 2021-12-07 07:45 | EKG ---
Test Date: 2021-12-06 Test Time: 10:24:57 Civil Engineering Assistant: MEASUREMENT RESULTS: Intervals: Rate: 127 SD: QRSD: 100 QT: 328 QTc: 476 [place]: P: SD: QRS: 190 T: 68 INTERPRETIVE STATEMENTS: Atrial fibrillation with rapid ventricular response Right superior axis deviation Incomplete right bundle branch block Right ventricular hypertrophy Cannot rule out Anterior infarct, age undetermined Abnormal ECG Compared to ECG 01/29/2019 13:53:03 Right superior axis now present Right ventricular hypertrophy now present Myocardial infarct finding now present ST (T wave) deviation no longer present Possible ischemia no longer present Electronically Signed On 12-07-21 07:41:36 CDT by Kevin Harden
[2021-12-07] MEDS ORDERED: ENOXAPARIN 40 MG/0.4 ML SQ SCH (09:00)
[2021-12-07] MEDS: CEFTRIAXONE 1,000 MG in NA CHLORIDE 0.9% 50 ML IVPB SCH ×2 (09:04→20:26)
[2021-12-07 09:45] LABS: Arterial Blood Carboxyhemoglob 1.5 % (0-1.5); Blood Gas Oxyhemoglobin 89.2 % (94-97); Blood O2 Saturation 91.7 % (92-98.5)
[2021-12-07] MEDS ORDERED: METOPROLOL TARTRATE 5 MG/5 ML INJ IV STA (10:33)
[2021-12-07] MEDS ORDERED: FUROSEMIDE 20 MG/ 2ML VIAL IV ONE ×2 (10:33→17:40)
--- NOTE | 2021-12-07 10:34 | P.HP ---
Certification for Inpatient Patient admitted to: Inpatient With expected LOS: >2 Midnights Patient will require the following post-hospital care: None Practitioner: I am a practitioner with admitting privileges, knowledge of patient current condition, hospital course, and medical plan of care. Services: Services provided to patient in accordance with Admission requirements found in Title 42 Section 412.3 of the Code of Federal Regulations Patient History Date of Service: 12/06/21 Reason for admission: Respiratory distress History of Present Illness: Patient is a 61-year-old gentleman came to the hospital with difficulty breathing. Patient was found to have acute COPD exacerbation. However, patient was so short of breath patient needed BiPAP support. Patient was admitted and started on IV steroids and nebulizer treatments. Patient with a history of morbid obesity as well. Patient also with a history of diastolic heart failure. We will monitor respiratory status. Patient will be admitted for further treatment. Allergies No Known Allergies Allergy (Verified 01/30/19 02:48) Home Medications: Amlodipine Besylate/Benazepril [Amlodipine-Benazepril 10-20 mg] 1 each PO DAILY 01/30/19 Atorvastatin Calcium [Lipitor] 40 mg PO BEDTIME 01/30/19 Metoprolol Tartrate [Lopressor*] 50 mg PO DAILY 01/30/19 PARoxetine HCl [Paxil] 30 mg PO DAILY 01/30/19 Rivaroxaban [Xarelto*] 20 mg PO DAILY 01/30/19 Furosemide [Lasix] 40 mg PO DAILY #30 tab 02/02/19 Mometasone/Formoterol [Dulera 100 Mcg/5 Mcg Inhaler] 2 puff IH BID #1 inhaler 02/02/19 Spironolactone [Aldactone] 25 mg PO DAILY #30 tab 02/02/19 predniSONE [Deltasone] 10 mg PO BID #10 tab 02/02/19 Sulfamethoxazole/Trimethoprim [Sulfamethoxazole-Tmp Ds Tablet] 1 each PO DAILY 04/07/19 Mupirocin Oint [Bactroban 2% Ointment] 22 appl TOP BID #1 tube 04/08/19 Sulfamethoxazole/Trimethoprim [Bactrim Ds Tablet] 1 each PO BID #12 tablet 04/08/19 - Past Medical/Surgical History Has patient received pneumonia vaccine in the past: No Diabetic: No -: cancer of lips -: COPD -: CHF -: afib Past Surgical History: Patient denies surgical history - Family History Father Medical History: Lung disease, Other (see notes) Notes: COPD Mother Medical History: Lung disease - Social History Smoking Status: Current every day smoker Alcohol use: No CD- Drugs: No Caffeine use: No Review of Systems 10-point ROS is otherwise unremarkable Physical Examination - Vital Signs Temperature: 96.8 F Blood Pressure: 125/56 Pulse: 106 Respirations: 22 Pulse Ox (%): 89 - Physical Exam General: Alert, In no apparent distress, Oriented x3 HEENT: Atraumatic, PERRLA, Mucous membr. moist/pink, EOMI, Sclerae nonicteric Neck: Supple, 2+ carotid pulse no bruit, No LAD, Without JVD or thyroid abnormality Respiratory: Diminished, Crackles/rales, Expiratory wheezes Cardiovascular: Normal S1 S2, Irregular heart rate/rhythm, Systolic murmur Gastrointestinal: Normal bowel sounds, Soft and benign, Non-distended, No tenderness Musculoskeletal: No clubbing, No swelling, No tenderness Integumentary: No rashes Neurological: Normal gait, Normal speech, Normal strength at 5/5 x4 extr, Normal tone, Sensation intact, Cranial nerves 3-12 intact, Normal affect Lymphatics: No axilla or inguinal lymphadenopathy - Studies Laboratory Data (last 24 hrs) 12/06/21 10:20: PT 23.1 H, INR 2.07, APTT 30.3 12/06/21 10:20: WBC 11.00 H, Hgb 14.7, Hct 48.0, Plt Count 179 12/06/21 10:20: Sodium 134 L, Potassium 5.1, BUN 50 H, Creatinine 2.53 H, Glucose 114 H Assessment & Plan - Problems (Diagnosis) (1) Atrial fibrillation with rapid ventricular response Onset Date: 05/28/16 Current Visit: No Status: Acute (2) CHF (congestive heart failure) Onset Date: 05/18/16 Current Visit: No Status: Acute (3) COPD exacerbation Onset Date: 06/01/16 Current Visit: No Status: Acute (4) Respiratory failure Current Visit: No Status: Acute Qualifiers: Chronicity: acute on chronic (5) Diastolic CHF Onset Date: 05/28/16 Current Visit: No Status: Chronic Qualifiers: Qualified Code(s): I50.32 - Chronic diastolic (congestive) heart failure - Plan PLAN: 1. Continue with albuterol and Atrovent nebs 2. Continue with IV steroids 3. Continue with diuretics 4. Echocardiogram 5. BiPAP support; continue O2 per protocol 6. Repeat chest x-ray in the morning 7. Pulmonary consultation 8. GI and DVT prophylaxis Discharge Plan: Home Plan to discharge in: Greater than 2 days - Advance Directives Does patient have a Living Will: No Does patient have a Durable POA for Healthcare: No - Code Status/Comfort Care Code Status Assessed: Yes Code Status: Full Code Critical Care: No Time Spent Managing PTS Care (In Minutes): 45
[2021-12-07] MEDS: NICOTINE 21 MG/PAT TD SCH (10:36)
[2021-12-07] MEDS ORDERED: ALBUMIN HUMAN 25% 50 ML IV ONE (10:40)
[2021-12-07] MEDS ORDERED: DIGOXIN 0.25 MG/ML AMP IV SCH (11:00)
--- NOTE | 2021-12-07 12:11 | P.CNS ---
Date of Consult: 12/07/21 Reason for Consult: Respiratory failure Chief Complaint: Respiratory distress History of Present Illness: Patient is 61 years of age admitted with dyspnea was found to have COPD exacerbation is currently on BiPAP poor historian has been sick for a while history of diastolic heart failure lower extremity edema Allergies No Known Allergies Allergy (Verified 01/30/19 02:48) Home Medications: Amlodipine Besylate/Benazepril [Amlodipine-Benazepril 10-20 mg] 1 each PO DAILY 01/30/19 Atorvastatin Calcium [Lipitor] 40 mg PO BEDTIME 01/30/19 Metoprolol Tartrate [Lopressor*] 50 mg PO DAILY 01/30/19 PARoxetine HCl [Paxil] 30 mg PO DAILY 01/30/19 Rivaroxaban [Xarelto*] 20 mg PO DAILY 01/30/19 Furosemide [Lasix] 40 mg PO DAILY #30 tab 02/02/19 Mometasone/Formoterol [Dulera 100 Mcg/5 Mcg Inhaler] 2 puff IH BID #1 inhaler 02/02/19 Spironolactone [Aldactone] 25 mg PO DAILY #30 tab 02/02/19 predniSONE [Deltasone] 10 mg PO BID #10 tab 02/02/19 Sulfamethoxazole/Trimethoprim [Sulfamethoxazole-Tmp Ds Tablet] 1 each PO DAILY 04/07/19 Mupirocin Oint [Bactroban 2% Ointment] 22 appl TOP BID #1 tube 04/08/19 Sulfamethoxazole/Trimethoprim [Bactrim Ds Tablet] 1 each PO BID #12 tablet 04/08/19 - Past Medical/Surgical History Diabetic: No -: cancer of lips -: COPD -: CHF -: afib - Family History Father Medical History: Lung disease, Other (see notes) Notes: COPD Mother Medical History: Lung disease - Social History Smoking Status: Unknown if ever smoked Alcohol use: No CD- Drugs: No Caffeine use: No Review of Systems is unable to be obtained Physical Examination Temp Pulse Resp BP Pulse Ox 96.8 F 89 22 H 107/70 89 L 12/07/21 10:38 12/07/21 11:02 12/07/21 10:38 12/07/21 11:02 12/07/21 10:38 General: Cooperative Respiratory: Rhonchi/gurgles Cardiovascular: Regular rate/rhythm, Edema (Bilateral edema) Gastrointestinal: Normal bowel sounds, Soft and benign - Problems (1) Respiratory failure with hypoxia and hypercapnia Current Visit: Yes Status: Acute Plan: Patient is 61 years of age admitted with acute on chronic respiratory failure hypoxemia hypercarbia possibly acute renal failure currently patient is on a centimeters he is fully anticoagulated chest x-ray shows cardiomegaly with significant rotation Qualifiers: Chronicity: acute on chronic Qualified Code(s): J96.21 - Acute and chronic respiratory failure with hypoxia; J96.22 - Acute and chronic respiratory failure with hypercapnia (2) Acute renal failure (ARF) Current Visit: Yes Status: Acute Plan: I have ordered ultrasound of the kidneys fractional excretion of sodium and creatinine eluding a urinalysis bili prerenal start on half-normal saline DC EMIR inhibitor's and diuretics for now Qualifiers: Acute renal failure type: unspecified Qualified Code(s): N17.9 - Acute kidney failure, unspecified
[2021-12-07] MEDS: NACHLORIDE 0.45% 1,000 ML IV SCH (13:01)
[2021-12-07 14:01] LABS: Urine Appearance Clear (Clear); Urine Bilirubin Negative (Negative); Urine Blood 2+ (Negative); Urine Color Yellow (Yellow); Urine Glucose Negative (Negative); Urine Protein Negative (Negative)
[2021-12-07 14:04] LABS: Urine Microscopic Reflex ORDER UMIC
[2021-12-07 14:19] LABS: Urine Bacteria <20 /HPF (NONE SEEN); Urine Mucus 1+ /HPF (NONE SEEN)
--- NOTE | 2021-12-07 14:41 | RAD REPORT ---
EXAM DESCRIPTION: US - Renal Ultrasound-Complete - 12/07/2021 2:33 pm CLINICAL HISTORY: Acute renal failure COMPARISON: Abdomen Exam Complete dated 03/08/2016 FINDINGS: Left kidney was nonvisualized due to body habitus. The right kidney measures 11.7 x 6.0 x 5.8 cm. No hydronephrosis, focal mass or perinephric fluid. The urinary bladder is incompletely distended without gross abnormality seen. IMPRESSION: The left kidney was nonvisualized due to body habitus. Normal-appearing right kidney.
[2021-12-07] MEDS: METHYLPREDNISOLONE 40 MG INJ IV SCH (18:04)
[2021-12-07] MEDS: ARFORMOTEROL TARTRATE 15 MCG/2 ML VIAL.NEB NEB SCH (20:03)
[2021-12-07] MEDS: ATORVASTATIN 40 MG TAB PO SCH (20:26)
[2021-12-07] MEDS: MUPIROCIN 2% OINT 22GM TUBE TOP SCH (20:26)
[2021-12-07] MEDS ORDERED: MUPIROCIN 2% OINT 22GM TUBE TOP SCH (21:00)
[2021-12-07] MEDS ORDERED: DULERA 100/5 (MOMETASONE/FORMOTEROL) INHALER IH SCH (21:00)
[2021-12-08] MEDS: METHYLPREDNISOLONE 40 MG INJ IV SCH ×2 (01:07→08:39)
[2021-12-08] MEDS: IPRATROPIUM BROM 0.5MG/2.5ML NEB SCH ×4 (01:58→20:20)
[2021-12-08] MEDS: ALBUTEROL 2.5 MG/3 ML NEB SOL NEB SCH ×4 (01:58→20:20)
[2021-12-08] MEDS: NACHLORIDE 0.45% 1,000 ML IV SCH (04:28)
--- NOTE | 2021-12-08 06:05 | P.CNS ---
Date of Consult: 12/08/21 Reason for Consult: TARIK Requesting Physician: Tess Munguia Chief Complaint: Respiratory distress History of Present Illness: 61M w/ PMHx of COPD, chronic diastolic HF, & morbid obesity who presents with shortness of breath, admitted for acute COPD exacerbation and possible CHF exacerbation, and also found to be in rapid A. fib, referred to nephrology for TARIK. TARIK is resolving at the time of this evaluation. His urine analysis showed high specific gravity, with hematuria but no proteinuria or pyuria. Urine chemistry is non-prerenal. Allergies No Known Allergies Allergy (Verified 01/30/19 02:48) Home Medications: Amlodipine Besylate/Benazepril [Amlodipine-Benazepril 10-20 mg] 1 each PO DAILY 01/30/19 Atorvastatin Calcium [Lipitor] 40 mg PO BEDTIME 01/30/19 Metoprolol Tartrate [Lopressor*] 50 mg PO DAILY 01/30/19 PARoxetine HCl [Paxil] 30 mg PO DAILY 01/30/19 Rivaroxaban [Xarelto*] 20 mg PO DAILY 01/30/19 Furosemide [Lasix] 40 mg PO DAILY #30 tab 02/02/19 Mometasone/Formoterol [Dulera 100 Mcg/5 Mcg Inhaler] 2 puff IH BID #1 inhaler 02/02/19 Spironolactone [Aldactone] 25 mg PO DAILY #30 tab 02/02/19 predniSONE [Deltasone] 10 mg PO BID #10 tab 02/02/19 Sulfamethoxazole/Trimethoprim [Sulfamethoxazole-Tmp Ds Tablet] 1 each PO DAILY 04/07/19 Mupirocin Oint [Bactroban 2% Ointment] 22 appl TOP BID #1 tube 04/08/19 Sulfamethoxazole/Trimethoprim [Bactrim Ds Tablet] 1 each PO BID #12 tablet 04/08/19 - Past Medical/Surgical History Diabetic: No -: cancer of lips -: COPD -: CHF -: afib - Family History Father Medical History: Lung disease, Other (see notes) Notes: COPD Mother Medical History: Lung disease - Social History Smoking Status: Unknown if ever smoked Alcohol use: No CD- Drugs: No Caffeine use: No Review of Systems General: Weakness Eyes: Unremarkable ENT: Unremarkable Respiratory: Shortness of Breath, SOB with Excertion Cardiovascular: Unremarkable Gastrointestinal: Unremarkable Genitourinary: Unremarkable Musculoskeletal: Pedal edema Integumentary: Unremarkable Neurological: Unremarkable Physical Examination Temp Pulse Resp BP Pulse Ox 97.6 F 97 H 20 104/62 92 12/08/21 04:00 12/08/21 04:00 12/08/21 04:00 12/08/21 04:00 12/08/21 04:00 General: Other (appears as his stated age) HEENT: Atraumatic, Normocephalic Neck: Supple, JVD not distended Respiratory: Other (symmetric chest expansion) Cardiovascular: No rubs, No murmurs Gastrointestinal: Soft and benign, No guarding Musculoskeletal: No clubbing, Swelling Integumentary: No warmth Neurological: Normal speech, Normal tone Lymphatics: No axilla or inguinal lymphadenopathy Urinary: Other (no bladder distention) External genitalia: Deferred Rectal: Deferred Conclusions/Impression: # TARIK 2/2 ischemic ATN 2/2 CRS1 in the setting of rapid afib w/ hypotension Baseline serum creatinine 0.81.0 as of November 2020 TARIK resolving, serum creatinine 2.5 on admission, improved to 1.6 Urinalysis showed high S.G., +hematuria, no proteinuria, no pyuria Urine chem non-prerenal F/u random UPCR # Acute respi acidosis 2/2 COPD exacerbation + rapid afib +/- acute on chronic diastolic CHF ABG on 12/07 showed acute respiratory acidosis plus metabolic alkalosis liberal by mouth fluid intake BNP significantly elevated Chest CT in 2013 showed no evidence of pulmonary hypertension continue diuretics # Acute exacerbation of COPD TTE in January 2019 showed normal LVEF, left atrium dilated Has chronic serum bicarb elevation 2/2 COPD Continue inhalers and steroids BiPAP prn # Afib w/ RVR HR now better controlled
[2021-12-08 07:02] LABS: Absolute Lymphocytes (CBC) 0.2 K/uL (0.7-4.9); Hematocrit 44.5 % (39.6-49.0); RBC Red Blood Cell Count 5.69 M/uL (4.33-5.43)
[2021-12-08 07:23] LABS: Albumin 2.8 g/dL (3.4-5.0); Bilirubin Total 0.6 mg/dL (0.2-1.0); Folic Acid, (Folate) 2.3 ng/mL (3.1-17.5); Magnesium 2.3 mg/dL (1.8-2.4); Phosphorus 3.9 mg/dL (2.5-4.9); Protein, Total 5.9 g/dL (6.4-8.2)
--- NOTE | 2021-12-08 07:58 | P.PN ---
Subjective Date of Service: 12/07/21 Notified by nursing staff multiple times on patient's respiratory status. Were able to get him stabilized and we diuresed him with Lasix. Clinical symptoms continue to improve. Continue with steroids and neb treatments. On BiPAP support and we are going to wean him down today. Review of Systems 10-point ROS is otherwise unremarkable Physical Examination - Vital Signs Temperature: 97.6 F Blood Pressure: 104/62 Pulse: 97 Respirations: 20 Pulse Ox (%): 92 - Physical Exam General: Alert, In no apparent distress, Obese HEENT: Atraumatic, PERRLA, EOMI Neck: Supple, JVD not distended Respiratory: Diminished, Crackles/rales, Expiratory wheezes Cardiovascular: Regular rate/rhythm, Normal S1 S2 Gastrointestinal: Normal bowel sounds, Soft and benign, Non-distended, No tenderness Musculoskeletal: No clubbing, No tenderness, Swelling Integumentary: No rashes Neurological: Sensation intact, Cranial nerves 3-12 intact Lymphatics: No axilla or inguinal lymphadenopathy - Studies Microbiology Data (last 24 hrs): 12/06/21 11:10 Blood - Blood Gram Stain - Final Medications List Reviewed: Yes Assessment & Plan - Problems (Diagnosis) (1) Atrial fibrillation with rapid ventricular response Onset Date: 05/28/16 Current Visit: No Status: Acute (2) CHF (congestive heart failure) Onset Date: 05/18/16 Current Visit: No Status: Acute (3) COPD exacerbation Onset Date: 06/01/16 Current Visit: No Status: Acute (4) Respiratory failure Current Visit: No Status: Acute Qualifiers: Chronicity: acute on chronic (5) Diastolic CHF Onset Date: 05/28/16 Current Visit: No Status: Chronic Qualifiers: Qualified Code(s): I50.32 - Chronic diastolic (congestive) heart failure - Plan Continue with plan of care as mentioned below: 1. Continue with albuterol and Atrovent nebs 2. Continue with IV steroids 3. Continue with diuretics 4. Echocardiogram pending 5. BiPAP support; continue O2 per protocol 6. Repeat chest x-ray in the morning 7. Pulmonary consultation 8. GI and DVT prophylaxis - Advance Directives Does patient have a Living Will: No Does patient have a Durable POA for Healthcare: No - Code Status/Comfort Care Code Status: Full Code
[2021-12-08] MEDS: ARFORMOTEROL TARTRATE 15 MCG/2 ML VIAL.NEB NEB SCH ×2 (08:20→20:20)
[2021-12-08] MEDS ORDERED: CEFTRIAXONE 1000 MG/VIAL ONE (08:38)
[2021-12-08] MEDS: NICOTINE 21 MG/PAT TD SCH (08:39)
[2021-12-08] MEDS: SPIRONOLACTONE 25 MG TABLET PO SCH (08:40)
[2021-12-08] MEDS: CEFTRIAXONE 1,000 MG in NA CHLORIDE 0.9% 50 ML IVPB SCH (08:40)
[2021-12-08] MEDS: AMLODIPINE 10 MG TAB PO SCH (08:41)
[2021-12-08] MEDS: METOPROLOL TAR 50 MG TAB PO SCH (08:41)
[2021-12-08] MEDS: FUROSEMIDE 20 MG/ 2ML VIAL IV SCH ×2 (08:41→17:32)
[2021-12-08] MEDS: PARoxetine HCL 10 MG TAB PO SCH (08:41)
[2021-12-08] MEDS: MUPIROCIN 2% OINT 22GM TUBE TOP SCH ×3 (08:42→22:55)
[2021-12-08] MEDS ORDERED: FUROSEMIDE 40 MG TABLET PO SCH (09:00)
[2021-12-08] MEDS ORDERED: BENAZEPRIL 20 MG TAB PO SCH (09:00)
[2021-12-08] MEDS ORDERED: RIVAROXABAN 20 MG TABLET PO SCH (09:00)
[2021-12-08] MEDS ORDERED: FOLIC ACID 5 MG/ML VIAL IVP SCH (09:00)
--- NOTE | 2021-12-08 09:14 | P.PN ---
Subjective Date of Service: 12/08/21 Chief Complaint: Respiratory distress Subjective: Improving (Patient is improving doing better is not using any bronchodilators at home has a CPAP that just recently quit working) Review of Systems General: Weakness Respiratory: Cough, Shortness of Breath Physical Examination - Vital Signs Temperature: 97.6 F Blood Pressure: 121/61 Pulse: 94 Respirations: 20 Pulse Ox (%): 92 - Physical Exam General: Alert, In no apparent distress, Oriented x3 Respiratory: Expiratory wheezes Cardiovascular: Regular rate/rhythm, Edema - Studies Microbiology Data (last 24 hrs): 12/06/21 11:10 Blood - Blood Gram Stain - Final Medications List Reviewed: Yes Assessment And Plan - Current Problems (Diagnosis) (1) Respiratory failure with hypoxia and hypercapnia Current Visit: Yes Status: Acute Plan: Patient is improving is to nasal cannula oxygen check if patient qualifies for home O2 history of sleep apnea: With the CPAP machine will try and contact [facility] patient to see if he can qualify for a new machine blood cultures positive for coagulase-negative staphylococci most likely contaminant Qualifiers: Chronicity: acute on chronic Qualified Code(s): J96.21 - Acute and chronic respiratory failure with hypoxia; J96.22 - Acute and chronic respiratory failure with hypercapnia (2) Acute renal failure (ARF) Current Visit: Yes Status: Acute Plan: Renal function is improving left kidney not visualized Qualifiers: Acute renal failure type: unspecified Qualified Code(s): N17.9 - Acute kidney failure, unspecified
[2021-12-08 12:29] LABS: Urine Protein/Creatinine Ratio 0.23 ratio (<0.15)
--- NOTE | 2021-12-08 12:39 | ECHO ---
HEIGHT: 5 ft 10 in WEIGHT: 286 lb 0.091 oz DATE OF STUDY: 12/08/[address]: Tess Munguia MD 2-DIMENSIONAL: YES M.MODE: YES DOPPLER: YES COLOR FLOW: YES TDS: YES PORTABLE: NO DEFINITY: NO BUBBLE STUDY: NO DIAGNOSIS: CONGESTIVE HEART FAILURE CARDIAC HISTORY: CATHERIZATION: NO SURGERY: NO PROSTHETIC VALVE: NO PACEMAKER: NO MEASUREMENTS (cm) DIASTOLIC (NORMALS) SYSTOLIC (NORMALS) IVSd 1.2 (0.6-1.2) LA Diam 4.4 (1.9-4.0) LVEF 70% LVIDd 5.2 (3.5-5.7) LVIDs 3.2 (2.0-3.5) %FS 40% LVPWd 1.3 (0.6-1.2) Ao Diam 3.3 (2.0-3.7) 2 DIMENSIONAL ASSESSMENT: RIGHT ATRIUM: NORMAL LEFT ATRIUM: NORMAL RIGHT VENTRICLE: NORMAL LEFT VENTRICLE: HYPERDYNAMIC TRICUSPID VALVE: MILD TRICUSPID REGURGITATION MITRAL VALVE: MILD MITRAL REGURGITATION PULMONIC VALVE: NORMAL AORTIC VALVE: NORMAL PERICARDIAL EFFUSION: SMALL AORTIC ROOT: NORMAL LEFT VENTRICULAR WALL MOTION: HYPERDYNAMIC LEFT VENTRICLE. DOPPLER/COLOR FLOW: SEE BELOW. COMMENTS: HYPERDYNAMIC LEFT VENTRICLE WITH EJECTION FRACTION GEATER THAN 60%. MILD MITRAL REGURGITATION, MILD TRICUSPID REGURGITATION. SMALL PERICARDIAL EFFUSION. PULMONARY HYPERTENSION WITH RIGHT VENTRICULAR SYSTOLIC PRESSURE OF 50-55mmHg. TECHNOLOGIST: KG SHAW
[2021-12-08] MEDS: FOLIC ACID 1 MG in NA CHLORIDE 0.9% 50 ML IV SCH (13:30)
[2021-12-08] MEDS ORDERED: ALPRAZOLAM 0.25 MG TABLET PO ONE (14:00)
--- NOTE | 2021-12-08 16:56 | CON ---
Date of Consultation: 12/08/2021 Reason For Consultation: Atrial fibrillation with rapid ventricular response and CHF. History Of Present Illness: This is a 61-year-old male, morbidly obese, presented to the emergency r oom with acute respiratory distress, found to be in severe COPD exacerbation. Had an episode of atri al fibrillation with rapid ventricular response. His heart rate is better now. He denies having any chest pain. He is wheezing with minimal cough. Past Medical History: Significant for atrial fibrillation, hypertension, COPD, skin cancer. Medications: Refer reconciliation sheet for detailed list. Allergies: NO KNOWN DRUG ALLERGIES. Family History: No mention of coronary artery disease or cancer. Social History: He is an active smoker. Does not drink or use any drugs. Review of Systems: All systems reviewed and they were negative except for mentioned in HPI. Physical Examination: Vital Signs: Reviewed. Head and Neck: Pupils are equal, reactive to light. Intact eye movements. No JVD. No cervical lym phadenopathy. Neck is supple. Thyroid is not enlarged. Lungs: Diffuse wheezing bilaterally with decreased breathing sounds. Heart: Irregularly irregular. No extra sounds. Abdomen: Soft, nontender. Bowel sounds positive. No organomegaly. No masses or hernia. No rigidi ty or rebound. Extremities: No clubbing or cyanosis. Intact pulses. Skin: No rashes or nodules. Neurologic: Alert, awake. No acute focal deficits appreciated. Lymph Nodes: No cervical lymphadenopathy. Investigations: His hemoglobin is 13.4, white blood cell count 7.9, his creatinine is 1.62, and trop onins were not checked. Assessment And Recommendations: 1.Acute respiratory failure, likely due to severe chronic obstructive pulmonary disease exacerbation , maybe a component of diastolic heart failure. Reviewed his echo. His ejection fraction is normal. I agree with gentle diuresis using Lasix 20 mg IV q.12 hours and Aldactone. As the patient's kidne y function is improving on that, his right ventricular systolic pressure on echo was 55 mmHg, which i s moderately severe. So definitely he will benefit from diuresis. 2.Atrial fibrillation. His rate is controlled. Patient is high risk for a stroke. I agree with marc gutierrez Xarelto, and if blood pressure allows, start the patient on a Cardizem 30 mg 3 times a day by mouth for better heart rate control and continue Xarelto. Thank you for the consult. SR/MODL Voice ID: [id number] Report ID: [id number]
[2021-12-08] MEDS: predniSONE 20 MG TAB PO SCH (22:54)
[2021-12-08] MEDS: DIGOXIN 0.25 MG/ML AMP IV SCH (22:54)
[2021-12-08] MEDS: ATORVASTATIN 40 MG TAB PO SCH (22:54)
[2021-12-08] MEDS: AMOX/K CLAV 500 MG TAB PO SCH (22:55)
[2021-12-09] MEDS: IPRATROPIUM BROM 0.5MG/2.5ML NEB SCH ×4 (01:28→20:10)
[2021-12-09] MEDS: ALBUTEROL 2.5 MG/3 ML NEB SOL NEB SCH ×4 (01:28→20:10)
[2021-12-09] MEDS: DIGOXIN 0.25 MG/ML AMP IV SCH (03:22)
[2021-12-09 07:10] LABS: Absolute Lymphocytes (CBC) 0.4 K/uL (0.7-4.9); Hematocrit 44.2 % (39.6-49.0); Lymphocytes % 4.5 % (15.3-44.8); MPV 8.8 fL (7.6-11.3); RBC Red Blood Cell Count 5.59 M/uL (4.33-5.43)
--- NOTE | 2021-12-09 07:21 | RAD REPORT ---
EXAM DESCRIPTION: RAD - Chest Single View - 12/09/2021 7:00 am CLINICAL HISTORY: pneumonia COMPARISON: Chest Single View dated 12/06/2021; Chest Pa And Lat (2 Views) dated 04/07/2019; Chest Sin gle View dated 01/29/2019; Chest Single View dated 05/25/2016; Renal Ultrasound-Complete dated 12/07/2021 FINDINGS: Lines: None. Lungs: Widespread bilateral airspace disease. Pleural: Probable small layering layering pleural effusions. Cardiac: Cardiomegaly. Bones: No acute fractures. Other: IMPRESSION: Similar widespread bilateral airspace disease which likely reflects pulmonary edema, tho ugh pneumonia difficult to exclude given the given clinical indication.
[2021-12-09 07:40] LABS: Albumin 2.9 g/dL (3.4-5.0); Bilirubin Total 0.6 mg/dL (0.2-1.0); Potassium 4.8 mmol/L (3.5-5.1)
[2021-12-09] MEDS: ARFORMOTEROL TARTRATE 15 MCG/2 ML VIAL.NEB NEB SCH ×2 (07:55→20:10)
[2021-12-09] MEDS: NICOTINE 21 MG/PAT TD SCH (09:28)
[2021-12-09] MEDS: FOLIC ACID 1 MG in NA CHLORIDE 0.9% 50 ML IV SCH (09:28)
[2021-12-09] MEDS: AMLODIPINE 10 MG TAB PO SCH (09:29)
[2021-12-09] MEDS: METOPROLOL TAR 50 MG TAB PO SCH (09:30)
[2021-12-09] MEDS: PARoxetine HCL 10 MG TAB PO SCH (09:30)
[2021-12-09] MEDS: FUROSEMIDE 20 MG/ 2ML VIAL IV SCH ×2 (09:31→16:50)
[2021-12-09] MEDS: AMOX/K CLAV 500 MG TAB PO SCH ×2 (09:31→21:14)
[2021-12-09] MEDS: SPIRONOLACTONE 25 MG TABLET PO SCH (09:31)
[2021-12-09] MEDS: predniSONE 20 MG TAB PO SCH ×2 (09:31→21:14)
[2021-12-09] MEDS: MUPIROCIN 2% OINT 22GM TUBE TOP SCH ×2 (09:51→21:15)
[2021-12-09 13:45] VITALS: BMI 40.8
[2021-12-09] MEDS: RIVAROXABAN 15 MG TABLET PO SCH (16:52)
--- NOTE | 2021-12-09 18:35 | PN ---
Date of Progress Note: 12/09/2021 Subjective: The patient was admitted with congestive heart failure, acute kidney injury secondary to cardiorenal. The patient was started on diuresis. The patient still on BiPAP. Physical Examination: Vital Signs: When I saw the patient; blood pressure of 129/87, pulse of 86, afebrile. The patient had good urine output of 1800, negative of 400. Chest: Decreased entry bilateral base. The patient is morbidly obese. Heart: S1, S2 regular. Abdomen: Soft, nontender. Morbidly obese. Could not appreciate any organomegaly. Extremities: Venous stasis change bilaterally. +1 edema. Laboratory Data: WBC 8.3, H and H 13.2/44.2. Sodium 140, potassium 4.8, bicarb 41, BUN 34, creatinine 1 and yesterday it was 1.6. GFR of 75, calcium 8.4. Urinalysis; PC ratio 0.23. Current Medications: The patient on include Eliquis, Augmentin, Xarelto, amlodipine 10, metoprolol, spironolactone 25 b.i.d., Ambien, paroxetine, Lasix 20 b.i.d., folic acid. Assessment And Plan: 1. Acute kidney injury secondary to cardiorenal, still looked to me on the over volume side. I am going to go ahead and increase the Lasix to 40 mg b.i.d. and we will monitor. 2. Anasarca secondary to body habitus venous stasis and cardiorenal. Increase Lasix. Hypothyroidism has been ruled out. We will follow up. 3. Hypertension. We will utilize blood pressure for more diuresis. 4. Respiratory failure secondary to chronic obstructive pulmonary disease exacerbation and cardiorenal syndrome. Follow up with Pulmonary. Continue diuresis. 5. Hypercapnic respiratory acidosis secondary to advanced chronic obstructive pulmonary disease. We will follow up with Pulmonary. time spent exam the patient face to face, reviewing the date radiology and lab , placing order , discussing the case with nursing staff and with hospitalist 45 min ENE/PARVEEN Voice ID: [id number] Report ID: [id number] [facility]PITALKelsi
[2021-12-09] MEDS: ATORVASTATIN 40 MG TAB PO SCH (21:15)
[2021-12-10] MEDS: ALBUTEROL 2.5 MG/3 ML NEB SOL NEB SCH ×4 (02:05→20:00)
[2021-12-10] MEDS: IPRATROPIUM BROM 0.5MG/2.5ML NEB SCH ×4 (02:05→20:00)
[2021-12-10] MEDS: ARFORMOTEROL TARTRATE 15 MCG/2 ML VIAL.NEB NEB SCH ×2 (08:05→20:00)
[2021-12-10] MEDS: NICOTINE 21 MG/PAT TD SCH (09:25)
[2021-12-10] MEDS: FUROSEMIDE 20 MG/ 2ML VIAL IV SCH ×2 (09:26→16:48)
[2021-12-10] MEDS: SPIRONOLACTONE 25 MG TABLET PO SCH (09:26)
[2021-12-10] MEDS: FOLIC ACID 1 MG in NA CHLORIDE 0.9% 50 ML IV SCH (09:26)
[2021-12-10] MEDS: METOPROLOL TAR 50 MG TAB PO SCH (09:27)
[2021-12-10] MEDS: PARoxetine HCL 10 MG TAB PO SCH (09:27)
[2021-12-10] MEDS: AMOX/K CLAV 500 MG TAB PO SCH ×2 (09:27→21:05)
[2021-12-10] MEDS: AMLODIPINE 10 MG TAB PO SCH (09:27)
[2021-12-10] MEDS: predniSONE 20 MG TAB PO SCH ×2 (09:28→21:05)
[2021-12-10] MEDS: MUPIROCIN 2% OINT 22GM TUBE TOP SCH ×2 (09:28→21:05)
[2021-12-10 15:52] LABS: Arterial Blood Carboxyhemoglob 1.7 % (0-1.5); Blood Gas Oxyhemoglobin 87.4 % (94-97); Blood O2 Saturation 89.9 % (92-98.5)
[2021-12-10] MEDS: RIVAROXABAN 15 MG TABLET PO SCH ×2 (16:55→17:00)
[2021-12-10] MEDS ORDERED: HALOPERIDOL LACT 5 MG/ML INJ IV PRN (17:16)
--- NOTE | 2021-12-10 17:20 | P.PN ---
Date of Service: 12/08/21 Subjective Breathing more comfortable on BiPAP. Oxygenation is stable. Review of Systems 10-point ROS is otherwise unremarkable Physical Examination - Vital Signs reviewed - Physical Exam General: Alert, In no apparent distress, Obese Respiratory: Diminished, Crackles/rales, Expiratory wheezes Cardiovascular: Regular rate/rhythm, Normal S1 S2 Gastrointestinal: Normal bowel sounds, Soft and benign, Non-distended, No tenderness Musculoskeletal: No clubbing, No tenderness, Swelling Neurological: Sensation intact, Cranial nerves 3-12 intact Assessment & Plan - Problems (Diagnosis) (1) Atrial fibrillation with rapid ventricular response Onset Date: 05/28/16 Current Visit: No Status: Acute (2) CHF (congestive heart failure) Onset Date: 05/18/16 Current Visit: No Status: Acute (3) COPD exacerbation Onset Date: 06/01/16 Current Visit: No Status: Acute (4) Respiratory failure Current Visit: No Status: Acute Qualifiers: Chronicity: acute on chronic (5) Diastolic CHF Onset Date: 05/28/16 Current Visit: No Status: Chronic Qualifiers: Qualified Code(s): I50.32 - Chronic diastolic (congestive) heart failure - Plan Continue with plan of care as mentioned below: 1. Continue with albuterol and Atrovent nebs 2. Continue with IV steroids 3. Continue with diuretics 4. Echocardiogram pending 5. BiPAP support; continue O2 per protocol 6. Repeat chest x-ray in the morning 7. Pulmonary consultation 8. GI and DVT prophylaxis - Advance Directives Does patient have a Living Will: No Does patient have a Durable POA for Healthcare: No - Code Status/Comfort Care Code Status: Full Code
--- NOTE | 2021-12-10 17:31 | P.PN ---
Date of Service: 12/09/21 Subjective Patient is currently doing better. Tolerating BiPAP. Currently being diuresed. Echocardiograms pending. Continue with Brovana and steroids. Review of Systems 10-point ROS is otherwise unremarkable Physical Examination - Vital Signs reviewed - Physical Exam General: Alert, In no apparent distress, Obese Respiratory: Diminished, Crackles/rales, Expiratory wheezes Cardiovascular: Regular rate/rhythm, Normal S1 S2 Gastrointestinal: Normal bowel sounds, Soft and benign, Non-distended, No tenderness Musculoskeletal: No clubbing, No tenderness, Swelling Neurological: Sensation intact, Cranial nerves 3-12 intact Assessment & Plan - Problems (Diagnosis) (1) Atrial fibrillation with rapid ventricular response Onset Date: 05/28/16 Current Visit: No Status: Acute (2) CHF (congestive heart failure) Onset Date: 05/18/16 Current Visit: No Status: Acute (3) COPD exacerbation Onset Date: 06/01/16 Current Visit: No Status: Acute (4) Respiratory failure Current Visit: No Status: Acute Qualifiers: Chronicity: acute on chronic (5) Diastolic CHF Onset Date: 05/28/16 Current Visit: No Status: Chronic Qualifiers: Qualified Code(s): I50.32 - Chronic diastolic (congestive) heart failure - Plan Continue with plan of care as mentioned below: 1. Continue with albuterol and Atrovent nebs 2. Continue with IV steroids 3. Continue with diuretics 4. Echocardiogram with moderate pulmonary hypertension; diastolic dysfunction 5. BiPAP support; continue O2 per protocol 6. Repeat chest x-ray in the morning 7. Pulmonary consultation along with cardiology and nephrology consultation 8. GI and DVT prophylaxis - Advance Directives Does patient have a Living Will: No Does patient have a Durable POA for Healthcare: No - Code Status/Comfort Care Code Status: Full Code
--- NOTE | 2021-12-10 19:37 | PN ---
Date of Progress Note: 12/10/2021 Subjective: The patient was admitted with hypercapnic respiratory failure, anasarca. The patient was started on diuresis, on BiPAP. The patient has difficulty weaning from BiPAP as he has severe desaturation. Objective: Vital Signs: Blood pressure 126/78, pulse of 72, afebrile. The patient had good urine output, negative of 400. As weight kearns, lost 1 pound from yesterday. Chest: Decreased air entry, bilateral base. The patient is morbidly obese, could not appreciate any additional sound. Heart: S1, S2. Abdomen: Soft. Again morbidly obese. Could not appreciate any organomegaly. Extremities: Bilateral venous stasis change. Trace edema. Neuro: The patient is sleepy, but awake, follows command. No focality. Laboratory Data: WBC 8.3, H and H 13.2/44.2, platelets 103. Sodium 140, potassium 4.8 bicarb 41, chloride 100, BUN 34, creatinine 1, GFR of 75, calcium 8.4. BNP 81041. ABG; pH 7.27, CO2 of 75, O2 of 74. Current Medications: The patient on include; 1. Augmentin. 2. Nicotine. 3. Amlodipine. 4. Atorvastatin. 5. Metoprolol. 6. Spironolactone. 7. Lasix. Assessment And Plan: 1. Acute kidney injury, secondary to cardiorenal, recovered, resolved, but still looked to me on the over volume side. We will continue aggressive diuresis for the patient to establish better volume control. I am going to go ahead and increase his Lasix to 40 mg b.i.d. and increase his spironolactone to 50, and we will monitor the patient. 2. Hypokalemia, status post supplement. We will increase his Lasix and spironolactone. 3. Anasarca, secondary to cardiorenal, pulmonary hypertension. The patient did not have any significant proteinuria and his TSH within normal limit. I am going to continue diuresis as above. 4. Alkalosis, metabolic, secondary to hypercapnic respiratory acidosis. Continue vent support with the BiPAP. time spent exam the patient face to face, reviewing the date radiology and lab , placing order , discussing the case with nursing staff and with hospitalist 45 min ENE/PARVEEN Voice ID: [id number] Report ID: [id number] MTDD
--- NOTE | 2021-12-10 19:48 | RAD REPORT ---
EXAM DESCRIPTION: Ridge Single View12/10/2021 6:39 pm CLINICAL HISTORY: Hypoxemia COMPARISON: December 09, 2021 FINDINGS: Mild bilateral pulmonary opacities. Lung bases are hazy. Heart remains enlarged IMPRESSION: Cardiomegaly bilateral pulmonary opacities probably CHF Lung bases are hazy which could be secondary to focal alveolar pulmonary edema, atelectasis or pleura l effusions
[2021-12-10] MEDS: ATORVASTATIN 40 MG TAB PO SCH (21:05)
[2021-12-10] MEDS ORDERED: WATER FOR INJ,STERILE 10 ML IM PRN (21:58)
[2021-12-10] MEDS ORDERED: ZIPRASIDONE MESYLA 20 MG/VIAL IM PRN (21:58)
[2021-12-11] MEDS: ALBUTEROL 2.5 MG/3 ML NEB SOL NEB SCH ×4 (01:10→19:15)
[2021-12-11] MEDS: IPRATROPIUM BROM 0.5MG/2.5ML NEB SCH ×4 (01:10→19:15)
--- NOTE | 2021-12-11 01:56 | P.PN ---
Date of Service: 12/10/21 Subjective Patient became very agitated. Patient also lost IV. Patient's rate is controlled. Patient's oxygenation has decreased. Continue with nebs, Lasix, and we may start patient on High flow O2 Review of Systems 10-point ROS is otherwise unremarkable Physical Examination - Vital Signs reviewed - Physical Exam General: Patient more lethargic and confused., Obese Respiratory: Diminished, Crackles/rales, Expiratory wheezes Cardiovascular: Regular rate/rhythm, Normal S1 S2 Gastrointestinal: Normal bowel sounds, Soft and benign, Non-distended, No tenderness Musculoskeletal: No clubbing, No tenderness, Swelling Neurological: No focal deficits Assessment & Plan - Problems (Diagnosis) (1) AMS Onset Date: 12/10/2021 Current Visit: No Status: Acute (2) CHF (congestive heart failure)/Atrial fibrillation with rapid ventricular response Onset Date: 05/18/16 Current Visit: No Status: Acute (3) COPD exacerbation Onset Date: 06/01/16 Current Visit: No Status: Acute (4) Respiratory failure Current Visit: No Status: Acute Qualifiers: Chronicity: acute on chronic (5) Diastolic CHF Onset Date: 05/28/16 Current Visit: No Status: Chronic Qualifiers: Qualified Code(s): I50.32 - Chronic diastolic (congestive) heart failure - Plan Continue with plan of care as mentioned below: 1. Continue with albuterol and Atrovent nebs 2. Continue with IV steroids 3. Continue with diuretics 4. Echocardiogram with moderate pulmonary hypertension 5. BiPAP support; continue O2 per protocol 6. Repeat chest x-ray in the morning 7. Pulmonary consultation appreciated 8. GI and DVT prophylaxis - Advance Directives Does patient have a Living Will: No Does patient have a Durable POA for Healthcare: No - Code Status/Comfort Care Code Status: Full Code
[2021-12-11 04:40] LABS: Absolute Lymphocytes (CBC) 0.4 K/uL (0.7-4.9); Hematocrit 45.8 % (39.6-49.0); Lymphocytes % 5.9 % (15.3-44.8); MPV 8.9 fL (7.6-11.3); RBC Red Blood Cell Count 5.93 M/uL (4.33-5.43)
[2021-12-11 05:09] LABS: BUN Blood Urea Nitrogen 23 mg/dL (7-18); Glucose Level 111 mg/dL (74-106); Magnesium 1.7 mg/dL (1.8-2.4); NT PRO-BNP 13066 pg/mL (<125); Potassium 5.1 mmol/L (3.5-5.1); Sodium Level 140 mmol/L (136-145)
[2021-12-11 05:13] LABS: Bicarbonate 43 mmol/L (21-32)
[2021-12-11 06:57] LABS: Blood Morphology Comment NOT SEEN (NOT SEEN); Platelet Estimate DECR
--- NOTE | 2021-12-11 07:29 | RAD REPORT ---
EXAM DESCRIPTION: RAD - Chest Single View - 12/11/2021 6:40 am CLINICAL HISTORY: pneumonia COMPARISON: <Comparisons> FINDINGS: Lines: None. Lungs: Widespread bilateral airspace disease. Pleural: Small to moderate left pleural effusion. Small right effusion suspected. Cardiac: Cardiomegaly. Bones: No acute fractures. Other: IMPRESSION: Widespread bilateral airspace disease with effusions favored to represent edema. Pneumon ia difficult to entirely exclude, however.
[2021-12-11] MEDS: ARFORMOTEROL TARTRATE 15 MCG/2 ML VIAL.NEB NEB SCH ×2 (08:00→19:15)
[2021-12-11] MEDS: POTASS/SODIUM PHOSPHATE 1 PKT POWD.PACK PO SCH ×2 (08:23→10:59)
[2021-12-11] MEDS: FUROSEMIDE 20 MG/ 2ML VIAL IV SCH ×2 (08:23→17:08)
[2021-12-11] MEDS: METOPROLOL TAR 50 MG TAB PO SCH (08:24)
[2021-12-11] MEDS: AMLODIPINE 10 MG TAB PO SCH (08:24)
[2021-12-11] MEDS: PARoxetine HCL 10 MG TAB PO SCH (08:25)
[2021-12-11] MEDS: FOLIC ACID 1 MG in NA CHLORIDE 0.9% 50 ML IV SCH (08:25)
[2021-12-11] MEDS: predniSONE 20 MG TAB PO SCH ×2 (08:25→20:43)
[2021-12-11] MEDS: NICOTINE 21 MG/PAT TD SCH (08:26)
[2021-12-11] MEDS: MUPIROCIN 2% OINT 22GM TUBE TOP SCH ×2 (08:37→20:43)
[2021-12-11] MEDS ORDERED: SPIRONOLACTONE 25 MG TABLET PO SCH (09:00)
[2021-12-11] MEDS: AMOX/K CLAV 500 MG TAB PO SCH ×2 (09:56→20:42)
--- NOTE | 2021-12-11 14:25 | P.PN ---
Subjective Date of Service: 12/13/21 Chief Complaint: Respiratory distress Subjective: No new changes, Other (Still in significant respiratory distress.) Physical Examination - Vital Signs Temperature: 97.0 F Blood Pressure: 123/83 Pulse: 83 Respirations: 24 Pulse Ox (%): 87 - Physical Exam General: Moderate distress HEENT: Atraumatic, Normocephalic Neck: Supple Respiratory: Diminished Cardiovascular: Regular rate/rhythm, Normal S1 S2 Gastrointestinal: Soft and benign Neurological: Normal speech - Studies Microbiology Data (last 24 hrs): 12/06/21 11:10 Blood - Blood Aerobic Blood Culture - Final No growth in 5 days. 12/06/21 11:10 Blood - Blood Anaerobic Blood Culture - Final 12/06/21 11:10 Blood - Blood Gram Stain - Final Medications List Reviewed: Yes Assessment And Plan - Plan Morbid obesity Respiratory failure with hypoxia and hypercapnia requiring BiPAP therapy Respiratory acidosis Physical deconditioning Pulmonary hypertension Volume overload Plan: He continues to have significant respiratory issues and still requiring high levels of oxygen to keep saturation at the upper 80s. We will continue breathing treatment. Pulmonary consultation placed. We will follow closely. Continue diuresis for volume management. Continue to administer physical therapy as tolerated. Plans for LTAC placement on discharge from hospital in [place].
[2021-12-11] MEDS: RIVAROXABAN 15 MG TABLET PO SCH (17:07)
[2021-12-11] MEDS: ATORVASTATIN 40 MG TAB PO SCH (20:43)
[2021-12-11] MEDS ORDERED: SOD POLYSTYREN SUL 15 GM/60 ML UCUP PO ONE (21:56)
[2021-12-11] MEDS ORDERED: ACETAZOLAMIDE 500 MG IV IV ONE (21:57)
[2021-12-11 23:14] LABS: BUN Blood Urea Nitrogen 24 mg/dL (7-18); Glucose Level 137 mg/dL (74-106); Sodium Level 139 mmol/L (136-145)
[2021-12-11 23:16] LABS: Bicarbonate > 45 mmol/L (21-32)
[2021-12-12 00:04] LABS: Arterial Blood Carboxyhemoglob 1.4 % (0-1.5); Blood Gas Oxyhemoglobin 84.1 % (94-97)
[2021-12-12] MEDS: IPRATROPIUM BROM 0.5MG/2.5ML NEB SCH ×4 (01:45→20:06)
[2021-12-12] MEDS: ALBUTEROL 2.5 MG/3 ML NEB SOL NEB SCH ×4 (01:45→20:06)
--- NOTE | 2021-12-12 02:49 | PN ---
Date of Progress Note: 12/11/2021 Chief Complaint: Acute on chronic kidney injury. Subjective: The patient has multiple medical problems including history of obstructive sleep apnea . The patient was found to have electrolyte abnormalities. The patient has history of hypercapnia and respiratory failure. The patient came to the hospital because of shortness of breath. He was found to have anasarca. Blood pressure was stable. BNP was up to 14,800. There is high BUN to creatinine ratio corresponding with prerenal azotemia, acute kidney injury secondary to cardiorenal syndrome. Renal function although has improved and fluid overload is resolving as a result of treatment with diuretics. The patient was taking Lasix currently. Spironolactone was increased. The patient has hypokalemia. Review of Systems: The patient is on BiPAP, cannot provide review of systems. Objective: Lungs: Equal chest expansion. Heart: S1, S2. Abdomen: Soft, benign. Extremities: Edema present. Impression And Plan: 1. Acute on chronic kidney injury. Continue diuretics. The patient was found to have potassium of 5.1 today. Plan is to hold spironolactone and continue Diamox for metabolic alkalosis. 2. Hypertension. Continue blood pressure medication. 3. Anasarca. Adjust diuretic for volume control. EB/MODL Voice ID: [id number] Report ID: [id number] MTDD
--- NOTE | 2021-12-12 07:24 | P.PN ---
Subjective Date of Service: 12/13/21 Chief Complaint: Respiratory distress Subjective: No new changes (Slightly better today.) Physical Examination - Vital Signs Temperature: 97 F Blood Pressure: 136/77 Pulse: 84 Respirations: 20 Pulse Ox (%): 87 - Physical Exam General: Alert, Oriented x3 HEENT: Normocephalic Respiratory: Diminished Cardiovascular: Regular rate/rhythm, Normal S1 S2 Gastrointestinal: Soft and benign Integumentary: Tenderness/swelling, Erythema Neurological: Normal speech - Studies Microbiology Data (last 24 hrs): 12/06/21 11:10 Blood - Blood Aerobic Blood Culture - Final No growth in 5 days. 12/06/21 11:10 Blood - Blood Anaerobic Blood Culture - Final 12/06/21 11:10 Blood - Blood Gram Stain - Final Medications List Reviewed: Yes Assessment And Plan - Plan Morbid obesity Respiratory failure with hypoxia and hypercapnia requiring BiPAP therapy Respiratory acidosis Physical deconditioning Pulmonary hypertension Volume overload Plan: He continues to have significant respiratory issues and still requiring high levels of oxygen to keep saturation at the upper 80s. We will continue breathing treatment. Pulmonary consultation recommendations noted. We will follow closely. Continue diuresis for volume management. Continue to administer physical therapy as tolerated. Plans for LTAC placement on discharge from hospital in [facility].
[2021-12-12] MEDS: ARFORMOTEROL TARTRATE 15 MCG/2 ML VIAL.NEB NEB SCH ×2 (08:23→20:06)
[2021-12-12] MEDS: FUROSEMIDE 20 MG/ 2ML VIAL IV SCH (09:00)
[2021-12-12] MEDS: AMOX/K CLAV 500 MG TAB PO SCH (10:07)
[2021-12-12] MEDS: METOPROLOL TAR 50 MG TAB PO SCH (10:08)
[2021-12-12] MEDS: PARoxetine HCL 10 MG TAB PO SCH (10:09)
[2021-12-12] MEDS: SPIRONOLACTONE 25 MG TABLET PO SCH (10:09)
[2021-12-12] MEDS: AMLODIPINE 10 MG TAB PO SCH (10:10)
[2021-12-12] MEDS: predniSONE 20 MG TAB PO SCH ×2 (10:10→21:16)
[2021-12-12] MEDS: MUPIROCIN 2% OINT 22GM TUBE TOP SCH ×2 (10:11→21:17)
[2021-12-12] MEDS: FOLIC ACID 1 MG in NA CHLORIDE 0.9% 50 ML IV SCH (10:11)
[2021-12-12] MEDS: NICOTINE 21 MG/PAT TD SCH (10:12)
[2021-12-12] MEDS ORDERED: NA CHLORIDE 0.9% 250 ML IV SCH (11:00)
--- NOTE | 2021-12-12 12:08 | P.PN ---
Subjective Date of Service: 12/12/21 Chief Complaint: Respiratory distress Patient is not doing well experiencing respiratory distress on high levels of BiPAP Review of Systems General: Weakness Respiratory: Shortness of Breath Physical Examination - Vital Signs Temperature: 97.0 F Blood Pressure: 143/73 Pulse: 93 Respirations: 28 Pulse Ox (%): 90 - Physical Exam General: Alert, Moderate distress Respiratory: Clear to auscultation bilaterally, Normal air movement Cardiovascular: Regular rate/rhythm, Edema - Studies Microbiology Data (last 24 hrs): 12/06/21 11:10 Blood - Blood Aerobic Blood Culture - Final No growth in 5 days. 12/06/21 11:10 Blood - Blood Anaerobic Blood Culture - Final 12/06/21 11:10 Blood - Blood Gram Stain - Final Medications List Reviewed: Yes Assessment And Plan - Current Problems (Diagnosis) (1) Respiratory failure with hypoxia and hypercapnia Current Visit: Yes Status: Acute Plan: Respiratory failure patient is not doing well requiring high levels of oxygen and BiPAP continues to remain hypoxic hypercapnic bicarbonate level is very elevated over 45 patient's chest x-ray is very abnormal patient is in A. fib possible transfer to the ICU Qualifiers: Chronicity: acute on chronic Qualified Code(s): J96.21 - Acute and chronic respiratory failure with hypoxia; J96.22 - Acute and chronic respiratory failure with hypercapnia (2) Acute renal failure (ARF) Current Visit: Yes Status: Acute Plan: Renal function is much better Qualifiers: Acute renal failure type: unspecified Qualified Code(s): N17.9 - Acute k idney failure, unspecified
[2021-12-12 13:06] LABS: Arterial Blood Carboxyhemoglob 1.4 % (0-1.5); Blood Gas Oxyhemoglobin 86.3 % (94-97); Blood O2 Saturation 88.4 % (92-98.5)
[2021-12-12] MEDS: ACETAZOLAMIDE 500 MG IV IV SCH ×2 (14:16→21:15)
--- NOTE | 2021-12-12 15:06 | PN ---
Date of Progress Note: 12/12/2021 Subjective: The patient was admitted with anasarca, respiratory failure secondary to hypercapnic respiratory failure, over volume. Objective: Vital Signs: Blood pressure 143/73, pulse of 93. Chest: Decreased entry bilateral base. Morbid obesity. Abdomen: Soft. Morbidly obese. Could not appreciate any organomegaly. Extremities: Venous stasis change bilateral. No edema. Laboratory Data: WBC 6.8, H and H 14/45.8. Sodium 139, potassium 4, bicarb 50, BUN 24, creatinine 0.7. ABG; pH 7.45, CO2 71, O2 55. Current Medications: The patient on include: 1. Albuterol. 2. Nicotine. 3. Amlodipine 10 mg. 4. Atorvastatin. 5. Metoprolol. 6. Spironolactone. 7. Tylenol. 8. Ambien. 9. Geodon. 10. Paxil. 11. Haloperidol. 12. Lasix. 13. Ipratropium. 14. Folic acid. Assessment And Plan: 1. Acute kidney injury secondary to cardiorenal, recovered, resolved. 2. Anasarca secondary to cardiorenal, continues to improve. Currently, the patient had contraction alkalosis secondary to over diuresis. I am going to hold the Lasix for the time being. 3. Contraction alkalosis. As above, we will hold the Lasix and we will give the patient 250 of normal saline and we will follow up. 4. Respiratory failure, combined secondary to chronic obstructive pulmonary disease exacerbation and congestive heart failure as above. Continue followup with BiPAP. 5. Hypercapnic respiratory failure. As above, we will follow up with Pulmonary. time spent exam the patient face to face, reviewing the date radiology and lab , placing order , discussing the case with nursing staff and with hospitalist 45 min AMINA Voice ID: [id number] Report ID: [id number] CASEY
[2021-12-12] MEDS: ACETAMINOPHEN 500 MG TAB PO PRN (15:28)
[2021-12-12] MEDS: RIVAROXABAN 15 MG TABLET PO SCH (16:30)
--- NOTE | 2021-12-12 17:18 | RAD REPORT ---
EXAM DESCRIPTION: RAD - Chest Single View - 12/12/2021 1:24 am - Chest Single View - 12/12/2021 1:24 am CLINICAL HISTORY: 61 years, Male, For PICC line placement COMPARISON: 12/11/2021 FINDINGS: Single view of the chest was obtained portable. Prior films were compared. The lung volume is decreased. There is interval placement of a right upper extremity PICC line tip of the catheter w ithin the superior vena cava in good position. The heart is prominent. Patient is rotated towards t he left side. Small to moderate bilateral pleural effusions. Prominence of the pulmonary markings. Th e rest of the soft tissue and bony structures demonstrate to be unremarkable. IMPRESSION: Right upper extremity PICC line in good position. Small to moderate bilateral pleural effusions. Electronically signed by: Adolfo Teresa MD 12/12/2021 1:33 AM CDT Due to temporary technical issues with the PACS/Fluency reporting system, reports are being signed by the in house radiologists without review as a courtesy to insure prompt reporting. The interpreting radiologist is fully responsible for the content of the report.
[2021-12-12] MEDS: ATORVASTATIN 40 MG TAB PO SCH (21:16)
[2021-12-13] MEDS: ALBUTEROL 2.5 MG/3 ML NEB SOL NEB SCH ×4 (01:35→19:40)
[2021-12-13] MEDS: IPRATROPIUM BROM 0.5MG/2.5ML NEB SCH ×4 (01:35→19:40)
[2021-12-13 07:44] LABS: ALT/SGPT 121 U/L (12-78); AST/SGOT 55 U/L (15-37); Albumin 2.9 g/dL (3.4-5.0); Alkaline Phosphatase 64 U/L (45-117); BUN Blood Urea Nitrogen 17 mg/dL (7-18); Bicarbonate 35 mmol/L (21-32); Bilirubin Total 1.6 mg/dL (0.2-1.0); Glucose Level 122 mg/dL (74-106); Magnesium 1.7 mg/dL (1.8-2.4); Potassium 3.8 mmol/L (3.5-5.1); Protein, Total 5.9 g/dL (6.4-8.2); Sodium Level 137 mmol/L (136-145)
[2021-12-13] MEDS ORDERED: MAGNESIUM SULFATE 1 gm IVPB 1 GM/100 ML BAG IV ONE (08:00)
[2021-12-13] MEDS: ARFORMOTEROL TARTRATE 15 MCG/2 ML VIAL.NEB NEB SCH ×2 (08:20→19:40)
--- NOTE | 2021-12-13 08:30 | P.PN ---
Subjective Date of Service: 12/14/21 Chief Complaint: Respiratory distress Subjective: No new changes, Improving Physical Examination - Vital Signs Temperature: 97 F Blood Pressure: 136/77 Pulse: 84 Respirations: 20 Pulse Ox (%): 87 - Physical Exam General: Alert, Oriented x3 HEENT: Atraumatic, Normocephalic Neck: Supple Respiratory: Diminished Cardiovascular: Regular rate/rhythm, Normal S1 S2 Neurological: Normal speech, Cranial nerves 3-12 intact - Studies Medications List Reviewed: Yes Assessment And Plan - Plan Morbid obesity Respiratory failure with hypoxia and hypercapnia requiring BiPAP therapy Respiratory acidosis Physical deconditioning Pulmonary hypertension Volume overload Plan: He is better respiratory kearns. His breathing is much improved. We will continue breathing treatment. Pulmonary consultation recommendations noted. We will follow closely. Continue diuresis for volume management. Continue to administer physical therapy as tolerated. Plans for LTAC placement on discharge from hospital in [place].
[2021-12-13] MEDS ORDERED: POTASSIUM CL SA 10 MEQ TAB PO ONE (09:00)
[2021-12-13] MEDS: MUPIROCIN 2% OINT 22GM TUBE TOP SCH ×2 (09:23→20:25)
[2021-12-13] MEDS: predniSONE 20 MG TAB PO SCH ×2 (09:24→20:24)
[2021-12-13] MEDS: NICOTINE 21 MG/PAT TD SCH (09:24)
[2021-12-13] MEDS: AMLODIPINE 10 MG TAB PO SCH (09:24)
[2021-12-13] MEDS: METOPROLOL TAR 50 MG TAB PO SCH (09:24)
[2021-12-13] MEDS: PARoxetine HCL 10 MG TAB PO SCH (09:24)
[2021-12-13] MEDS: SPIRONOLACTONE 25 MG TABLET PO SCH (09:25)
[2021-12-13] MEDS: ACETAZOLAMIDE 500 MG IV IV SCH ×2 (09:28→20:24)
[2021-12-13] MEDS: FOLIC ACID 1 MG in NA CHLORIDE 0.9% 50 ML IV SCH (11:47)
--- NOTE | 2021-12-13 13:04 | PN ---
Date of Progress Note: 12/13/2021 Subjective: The patient was admitted with respiratory failure, multifactorial, secondary to CHF/COPD exacerbation with acute kidney injury. The patient has been diuresed. Physical Examination: Vital Signs: When I saw the patient; blood pressure 136/77, pulse of 84, afebrile. The patient yest erday received some IV fluid. Currently, his urine output is 700. The patient positive of 600. Chest: Decreased entry bilateral base. Unfortunately, the patient is morbidly obese, could not appr eciate any additional sound. Heart: S1, S2. Regular. Abdomen: Morbidly obese. Could not appreciate any organomegaly. No guarding or rebound. Extremity: Venous stasis change bilateral. Laboratory Data: Chest x-ray, cardiomegaly with congestion bilaterally. WBC 6.8, H and H 14/45.8. Sodium 137, potassium 3.8, bicarb 35, BUN 17, creatinine 0.6, calcium 8.5, magnesium 1.7. Albumin 2. 9, corrected calcium is 10.1. Current Medications: The patient on include; 1.Xarelto. 2.Amlodipine. 3.Metoprolol. 4.Spironolactone 25 daily. 5.Tylenol. 6.Haloperidol. 7.Geodon. 8.Paxil. 9.Ipratropium. 10.Zofran. 11.Magnesium. Assessment And Plan: 1.Acute kidney injury secondary to cardiorenal, recovered, resolved. Currently look to me the patie nt close to be normal volume. We will continue on the spironolactone and we will monitor. 2.Hypertension, controlled, optimal. Continue current treatment. 3.Respiratory failure secondary to hypercapnic respiratory failure. We will continue current suppor t. The patient is on high-flow. 4.Hypercapnic respiratory failure with contraction alkalosis. I am going to keep holding the Lasix. Continue the spironolactone for now. 5.Congestive heart failure with exacerbation, currently normal volume. We will continue to monitor the patient. Only on spironolactone. ENE/PARVEEN Voice ID: [id number] Report ID: [id number]
[2021-12-13] MEDS: RIVAROXABAN 15 MG TABLET PO SCH (15:50)
[2021-12-13] MEDS: ACETAMINOPHEN 500 MG TAB PO PRN (15:55)
[2021-12-13] MEDS ORDERED: WATER FOR INJ,STERILE 10 ML ONE (20:24)
[2021-12-13] MEDS: ATORVASTATIN 40 MG TAB PO SCH (20:24)
[2021-12-14] MEDS: IPRATROPIUM BROM 0.5MG/2.5ML NEB SCH ×4 (01:10→20:45)
[2021-12-14] MEDS: ALBUTEROL 2.5 MG/3 ML NEB SOL NEB SCH ×4 (01:10→20:45)
[2021-12-14 06:23] LABS: BUN Blood Urea Nitrogen 20 mg/dL (7-18); Bicarbonate 33 mmol/L (21-32); Glucose Level 110 mg/dL (74-106); Potassium 3.7 mmol/L (3.5-5.1); Sodium Level 137 mmol/L (136-145)
[2021-12-14] MEDS: ARFORMOTEROL TARTRATE 15 MCG/2 ML VIAL.NEB NEB SCH ×2 (08:06→20:45)
[2021-12-14] MEDS ORDERED: MAGNESIUM SULFATE 1 gm IVPB 1 GM/100 ML BAG IV ONE (09:00)
[2021-12-14] MEDS ORDERED: POTASSIUM CL SA 10 MEQ TAB PO ONE (09:00)
[2021-12-14] MEDS: METOPROLOL TAR 50 MG TAB PO SCH (09:44)
[2021-12-14] MEDS: ACETAZOLAMIDE 500 MG IV IV SCH (09:44)
[2021-12-14] MEDS: NICOTINE 21 MG/PAT TD SCH (09:45)
[2021-12-14] MEDS: predniSONE 20 MG TAB PO SCH ×2 (09:45→20:23)
[2021-12-14] MEDS: SPIRONOLACTONE 25 MG TABLET PO SCH (09:45)
[2021-12-14] MEDS: PARoxetine HCL 10 MG TAB PO SCH (09:46)
[2021-12-14] MEDS: MUPIROCIN 2% OINT 22GM TUBE TOP SCH ×2 (09:51→20:23)
[2021-12-14] MEDS: AMLODIPINE 10 MG TAB PO SCH (09:54)
[2021-12-14] MEDS: FOLIC ACID 1 MG in NA CHLORIDE 0.9% 50 ML IV SCH (09:58)
[2021-12-14] MEDS ORDERED: FUROSEMIDE 40 MG/4 ML VIAL IV ONE (11:19)
--- NOTE | 2021-12-14 12:51 | P.PN ---
Subjective Date of Service: 12/14/21 Chief Complaint: respiratory failure Patient is improving still on BiPAP Review of Systems General: Weakness Respiratory: Shortness of Breath Physical Examination - Vital Signs Temperature: 97.0 F Blood Pressure: 141/89 Pulse: 90 Respirations: 24 Pulse Ox (%): 87 - Physical Exam General: Alert, Oriented x1, Mild distress Respiratory: Clear to auscultation bilaterally, Diminished Cardiovascular: Normal S1 S2, Edema - Studies Medications List Reviewed: Yes Assessment And Plan - Current Problems (Diagnosis) (1) Respiratory failure with hypoxia and hypercapnia Current Visit: Yes Status: Acute Qualifiers: Chronicity: acute on chronic Qualified Code(s): J96.21 - Acute and chronic respiratory failure with hypoxia; J96.22 - Acute and chronic respiratory failure with hypercapnia (2) Acute renal failure (ARF) Current Visit: Yes Status: Acute Qualifiers: Acute renal failure type: unspecified Qualified Code(s): N17.9 - Acute kidney failure, unspecified - Plan Patient has hypoxic hypercapnic respiratory failure will titrate to with nasal cannula O2 use BiPAP as needed patient is on bronchodilators vital signs stable bicarbonate is back to normal medication labs all reviewed
--- NOTE | 2021-12-14 15:47 | PN ---
Date of Progress Note: 12/14/2021 Subjective: The patient was admitted with acute kidney injury, over volume secondary to cardiorenal, respiratory failure secondary to over volume, and COPD exacerbation, hypercapnic respiratory failure . Physical Examination: Vital Signs: Blood pressure 141/89, pulse of 90, afebrile. The patient had good urine output. Chest: Decreased entry bilateral base, morbid obesity. Heart: S1, S2. Regular. Abdomen: Morbidly obese. Could not appreciate any organomegaly. Extremities: Venous stasis change bilateral. Laboratory Data: WBC 6.8, H and H 14/45.8, platelet of 80. Sodium 137, potassium 3.7, bicarb 33, BU N 20, creatinine 0.7, calcium 8.9, magnesium 1.8. BNP 13,066. Current Medications: The patient on include; 1.Nicotine patch. 2.Xarelto. 3.Amlodipine 10 mg. 4.Metoprolol. 5.Spironolactone 25 daily. 6.Ambien. 7.Acetazolamide 250 b.i.d. 8.Zofran. 9.Prednisone. 10.Magnesium sulfate. 11.KCl. Assessment And Plan: 1.Acute kidney injury secondary to cardiorenal, recovered, resolved. Currently maintained on curren t diuresis. We will continue to monitor. 2.Hypertension, controlled, optimal. Continue current treatment. 3.Respiratory failure secondary to hypercapnic respiratory failure, severe and pulmonary hypertensio n. We will continue to current diuresis. I am going to go ahead and increase his spironolactone, ke ep holding the Lasix for the time being. 4.Contraction alkalosis with hypercapnic respiratory failure. The patient responding very well. We will increase spironolactone to 50 and we will follow up with Pulmonary. 5.Congestive heart failure with exacerbation, diastolic dysfunction as by primary. Increase his spi ronolactone and we will monitor the patient. We will give single dose of Lasix today. ENE/PARVEEN Voice ID: [id number] Report ID: [id number]
[2021-12-14] MEDS: RIVAROXABAN 15 MG TABLET PO SCH (16:35)
[2021-12-14] MEDS: ATORVASTATIN 40 MG TAB PO SCH (20:23)
--- NOTE | 2021-12-14 22:23 | P.PN ---
Subjective Date of Service: 12/14/21 Chief Complaint: Respiratory distress Subjective: No new changes, Improving Physical Examination - Vital Signs Temperature: 97 F Blood Pressure: 136/77 Pulse: 84 Respirations: 20 Pulse Ox (%): 87 - Physical Exam General: Alert, Oriented x3 HEENT: Atraumatic, Normocephalic Neck: Supple Respiratory: Diminished Cardiovascular: Regular rate/rhythm, Normal S1 S2 Gastrointestinal: Soft and benign Neurological: Normal speech, Cranial nerves 3-12 intact - Studies Medications List Reviewed: Yes Assessment And Plan - Plan Morbid obesity Respiratory failure with hypoxia and hypercapnia requiring BiPAP therapy Respiratory acidosis Physical deconditioning Pulmonary hypertension Volume overload Plan: He is better respiratory kearns. His breathing is much improved. We will continue breathing treatment. Pulmonary consultation recommendations noted. We will follow closely. Continue diuresis for volume management. Continue to administer physical therapy as tolerated. Plans for LTAC placement on discharge from hospital in [place].
[2021-12-15] MEDS: ACETAMINOPHEN 500 MG TAB PO PRN (01:24)
[2021-12-15] MEDS: IPRATROPIUM BROM 0.5MG/2.5ML NEB SCH ×4 (01:50→20:05)
[2021-12-15] MEDS: ALBUTEROL 2.5 MG/3 ML NEB SOL NEB SCH ×4 (01:50→20:05)
[2021-12-15 05:47] LABS: Potassium 3.7 mmol/L (3.5-5.1)
--- NOTE | 2021-12-15 07:28 | P.PN ---
Subjective Date of Service: 12/15/21 Chief Complaint: Respiratory distress Physical Examination - Vital Signs Temperature: 97.5 F Blood Pressure: 116/66 Pulse: 94 Respirations: 18 Pulse Ox (%): 97 - Studies Medications List Reviewed: Yes Assessment And Plan - Plan # TARIK 2/2 ischemic ATN 2/2 CRS1 in the setting of rapid afib w/ hypotension TARIK resolved, SCr 0.88 Baseline serum creatinine 0.8-1.0 as of November 2020 [place] po fluid intake # Acute respi acidosis 2/2 COPD exacerbation + rapid afib +/- acute on chronic diastolic CHF BNP significantly elevated Chest CT in 2013 showed no evidence of pulmonary hypertension Continue lasix + basilio # Metabolic alkalosis HCO3 decreased to 32 Dc Diamox # Acute exacerbation of COPD TTE in January 2019 showed normal LVEF, left atrium dilated TTE on 12/08/21 showed LVEF 70%, small pericardial effusion, RVSP 50-55 mmHg Has chronic serum bicarb elevation 2/2 COPD Continue inhalers and steroids BiPAP prn # Afib w/ RVR HR now better controlled # Htn BP at goal Cont Amlodipine
[2021-12-15] MEDS: ARFORMOTEROL TARTRATE 15 MCG/2 ML VIAL.NEB NEB SCH ×2 (08:18→20:05)
[2021-12-15] MEDS: PARoxetine HCL 10 MG TAB PO SCH (08:57)
[2021-12-15] MEDS: AMLODIPINE 10 MG TAB PO SCH (08:57)
[2021-12-15] MEDS: SPIRONOLACTONE 25 MG TABLET PO SCH (08:58)
[2021-12-15] MEDS: METOPROLOL TAR 50 MG TAB PO SCH (08:58)
[2021-12-15] MEDS: NICOTINE 21 MG/PAT TD SCH (08:59)
[2021-12-15] MEDS: MUPIROCIN 2% OINT 22GM TUBE TOP SCH ×2 (08:59→21:15)
[2021-12-15] MEDS ORDERED: acetaZOLAMIDE 250 MG TAB PO SCH (09:00)
[2021-12-15] MEDS ORDERED: POTASSIUM CL SA 10 MEQ TAB PO ONE (09:00)
[2021-12-15] MEDS ORDERED: FUROSEMIDE 40 MG/4 ML VIAL IV SCH (14:16)
--- NOTE | 2021-12-15 14:17 | P.PN ---
Subjective Date of Service: 12/15/21 Chief Complaint: Respiratory distress No significant change patient is still requiring 100% high flow and BiPAP although he feels better Review of Systems General: Weakness Respiratory: Shortness of Breath Physical Examination - Vital Signs Temperature: 97.3 F Blood Pressure: 128/78 Pulse: 102 Respirations: 20 Pulse Ox (%): 80 - Physical Exam General: Alert, Moderate distress Respiratory: Diminished, Expiratory wheezes Cardiovascular: Edema - Studies Medications List Reviewed: Yes Assessment And Plan - Current Problems (Diagnosis) (1) Respiratory failure with hypoxia and hypercapnia Current Visit: Yes Status: Acute Qualifiers: Chronicity: acute on chronic Qualified Code(s): J96.21 - Acute and chronic respiratory failure with hypoxia; J96.22 - Acute and chronic respiratory failure with hypercapnia - Plan Patient has hypoxic hypercapnic respiratory failure will titrate to with nasal cannula O2 use BiPAP as needed patient is on bronchodilators vital signs stable bicarbonate is back to normal medication labs all reviewed can normal renal function resume steroids resume IV Lasix labs chest x-rays all reviewed
[2021-12-15] MEDS: METHYLPREDNISOLONE 125 MG INJ IV SCH ×2 (14:39→21:14)
[2021-12-15] MEDS: FUROSEMIDE 40 MG/4 ML VIAL IV SCH (16:00)
[2021-12-15] MEDS: RIVAROXABAN 15 MG TABLET PO SCH (16:01)
[2021-12-15] MEDS: ATORVASTATIN 40 MG TAB PO SCH (21:14)
[2021-12-16] MEDS: ALBUTEROL 2.5 MG/3 ML NEB SOL NEB SCH ×4 (01:20→19:52)
[2021-12-16] MEDS: IPRATROPIUM BROM 0.5MG/2.5ML NEB SCH ×4 (01:20→19:52)
[2021-12-16 05:03] LABS: BUN Blood Urea Nitrogen 33 mg/dL (7-18); Bicarbonate 33 mmol/L (21-32); Glucose Level 156 mg/dL (74-106); Sodium Level 138 mmol/L (136-145)
[2021-12-16] MEDS: ARFORMOTEROL TARTRATE 15 MCG/2 ML VIAL.NEB NEB SCH ×2 (08:08→19:52)
[2021-12-16] MEDS: NICOTINE 21 MG/PAT TD SCH (08:26)
[2021-12-16] MEDS: SPIRONOLACTONE 25 MG TABLET PO SCH (08:27)
[2021-12-16] MEDS: PARoxetine HCL 10 MG TAB PO SCH (08:27)
[2021-12-16] MEDS: METOPROLOL TAR 50 MG TAB PO SCH (08:29)
[2021-12-16] MEDS: AMLODIPINE 10 MG TAB PO SCH (08:29)
[2021-12-16] MEDS: MUPIROCIN 2% OINT 22GM TUBE TOP SCH ×2 (08:30→21:01)
[2021-12-16] MEDS: FUROSEMIDE 40 MG/4 ML VIAL IV SCH ×2 (08:30→16:57)
[2021-12-16] MEDS: METHYLPREDNISOLONE 125 MG INJ IV SCH ×2 (08:31→20:55)
[2021-12-16] MEDS: ENSURE HIGH PROTEIN 237 ML CAN PO SCH ×2 (09:00→21:01)
--- NOTE | 2021-12-16 09:19 | P.PN ---
Subjective Date of Service: 12/16/21 Chief Complaint: Respiratory distress No change patient continues to remain very hypoxic and respiratory failure requiring high concentrations of oxygen Review of Systems General: Weakness Respiratory: Shortness of Breath Physical Examination - Vital Signs Temperature: 97.3 F Blood Pressure: 131/89 Pulse: 94 Respirations: 24 Pulse Ox (%): 90 - Physical Exam General: Alert, Mild distress Respiratory: Clear to auscultation bilaterally, Diminished, Expiratory wheezes Cardiovascular: Edema Gastrointestinal: Normal bowel sounds, Soft and benign - Studies Medications List Reviewed: Yes Assessment And Plan - Current Problems (Diagnosis) (1) Respiratory failure with hypoxia and hypercapnia Current Visit: Yes Status: Acute Plan: U Qualifiers: Chronicity: acute on chronic Qualified Code(s): J96.21 - Acute and chronic respiratory failure with hypoxia; J96.22 - Acute and chronic respiratory failure with hypercapnia - Plan Respiratory failure no change increase the dose of IV Lasix labs reviewed patient is now anticoagulated on steroids prognosis poor he is in atrial fibrillation
--- NOTE | 2021-12-16 11:37 | P.PN ---
Subjective Date of Service: 12/17/21 Chief Complaint: Respiratory distress Subjective: No new changes Physical Examination - Vital Signs Temperature: 97.3 F Blood Pressure: 131/89 Pulse: 94 Respirations: 24 Pulse Ox (%): 90 - Physical Exam General: Mild distress HEENT: Atraumatic, Normocephalic Neck: Supple Respiratory: Other (symmetric chest expansion) Cardiovascular: No rubs, No murmurs Gastrointestinal: Soft and benign Musculoskeletal: No clubbing Integumentary: No warmth Neurological: Normal speech, Normal tone Urinary: Other (no bladder distention) External genitalia: Deferred Rectal: Deferred - Studies Medications List Reviewed: Yes Assessment And Plan - Plan # TARIK 2/2 ischemic ATN 2/2 CRS1 in the setting of rapid afib w/ hypotension TARIK resolved, SCr 0.8 Baseline serum creatinine 0.8-1.0 as of November 2020 [place] po fluid intake # Acute respi acidosis 2/2 COPD exacerbation + rapid afib +/- acute on chronic diastolic CHF BNP significantly elevated Chest CT in 2013 showed no evidence of pulmonary hypertension Continue lasix + basilio # Metabolic alkalosis HCO3 decreased to 33 No need to resume Diamox # Acute exacerbation of COPD TTE in January 2019 showed normal LVEF, left atrium dilated TTE on 12/08/21 showed LVEF 70%, small pericardial effusion, RVSP 50-55 mmHg Has chronic serum bicarb elevation 2/2 COPD Continue inhalers and steroids BiPAP prn # Afib w/ RVR HR now better controlled # Htn BP at goal Cont Amlodipine
[2021-12-16] MEDS: ACETAMINOPHEN 500 MG TAB PO PRN (16:58)
[2021-12-16] MEDS: RIVAROXABAN 15 MG TABLET PO SCH (16:58)
[2021-12-16] MEDS: ATORVASTATIN 40 MG TAB PO SCH (20:55)
[2021-12-17] MEDS: ACETAMINOPHEN 500 MG TAB PO PRN (00:35)
[2021-12-17] MEDS: ALBUTEROL 2.5 MG/3 ML NEB SOL NEB SCH ×4 (02:05→19:50)
[2021-12-17] MEDS: IPRATROPIUM BROM 0.5MG/2.5ML NEB SCH ×4 (02:05→19:50)
--- NOTE | 2021-12-17 05:34 | P.PN ---
Subjective Date of Service: 12/17/21 Chief Complaint: Respiratory distress Subjective: Other (remains bedridden) Physical Examination - Vital Signs Temperature: 97.3 F Blood Pressure: 131/89 Pulse: 94 Respirations: 24 Pulse Ox (%): 90 - Physical Exam General: Mild distress HEENT: Atraumatic, Normocephalic, Other (+bipap) Neck: Supple, JVD not distended Respiratory: Other (symmetric chest expansion) Cardiovascular: No rubs, No murmurs Gastrointestinal: Soft and benign, No guarding Musculoskeletal: No clubbing Integumentary: No warmth Neurological: Normal tone Lymphatics: No axilla or inguinal lymphadenopathy Urinary: Other (no bladder distention) External genitalia: Deferred Rectal: Deferred - Studies Medications List Reviewed: Yes Assessment And Plan - Plan # TARIK 2/2 ischemic ATN 2/2 CRS1 in the setting of rapid afib w/ hypotension TARIK resolved, SCr 0.8 Baseline serum creatinine 0.8-1.0 as of November 2020 [place] po fluid intake # Acute respi acidosis 2/2 COPD exacerbation + rapid afib +/- acute on chronic diastolic CHF BNP significantly elevated Chest CT in 2013 showed no evidence of pulmonary hypertension Continue lasix + basilio On bipap, remains hypoxic # Metabolic alkalosis HCO3 decreased to 33 No need to resume Diamox # Acute exacerbation of COPD TTE in January 2019 showed normal LVEF, left atrium dilated TTE on 12/08/21 showed LVEF 70%, small pericardial effusion, RVSP 50-55 mmHg Has chronic serum bicarb elevation 2/2 COPD Continue inhalers and steroids BiPAP prn # Afib w/ RVR HR now better controlled # Htn BP at goal Cont Amlodipine
[2021-12-17] MEDS: ARFORMOTEROL TARTRATE 15 MCG/2 ML VIAL.NEB NEB SCH ×2 (07:25→19:50)
[2021-12-17] MEDS: NICOTINE 21 MG/PAT TD SCH (08:45)
[2021-12-17] MEDS: METHYLPREDNISOLONE 125 MG INJ IV SCH ×2 (08:45→20:34)
[2021-12-17 08:47] LABS: Arterial Blood Carboxyhemoglob 1.1 % (0-1.5); Blood Gas Oxyhemoglobin 86.1 % (94-97); Blood O2 Saturation 87.9 % (92-98.5)
[2021-12-17] MEDS: FUROSEMIDE 40 MG/4 ML VIAL IV SCH ×2 (08:48→17:06)
[2021-12-17] MEDS: METOPROLOL TAR 50 MG TAB PO SCH (08:49)
[2021-12-17] MEDS: AMLODIPINE 10 MG TAB PO SCH (08:50)
[2021-12-17] MEDS: PARoxetine HCL 10 MG TAB PO SCH (08:50)
[2021-12-17] MEDS: SPIRONOLACTONE 25 MG TABLET PO SCH (08:50)
[2021-12-17] MEDS: MUPIROCIN 2% OINT 22GM TUBE TOP SCH ×2 (08:51→20:34)
[2021-12-17] MEDS: ENSURE HIGH PROTEIN 237 ML CAN PO SCH ×2 (08:52→20:37)
--- NOTE | 2021-12-17 11:26 | P.PN ---
Subjective Date of Service: 12/17/21 Chief Complaint: Failure Patient not doing GERD still has significant desaturation at night transferred to the ICU otherwise he is alert oriented responsive cooperative eating and drinking Review of Systems General: Weakness Respiratory: Shortness of Breath Physical Examination - Vital Signs Temperature: 97 F Blood Pressure: 127/88 Pulse: 76 Respirations: 22 Pulse Ox (%): 93 - Physical Exam General: Alert, Oriented x3, Moderate distress Respiratory: Clear to auscultation bilaterally, Diminished - Studies Medications List Reviewed: Yes Assessment And Plan - Current Problems (Diagnosis) (1) Respiratory failure with hypoxia and hypercapnia Current Visit: Yes Status: Acute Plan: Patient transferred to the ICU due to significant desaturation continue monitoring blood gases reviewed hypoxemia hypercarbia on significant amount of oxygen chest x-ray seems to have improved vital signs stable continue to monitor in the ICU continue with BiPAP continue with high-dose diuretic Qualifiers: Chronicity: acute on chronic Qualified Code(s): J96.21 - Acute and chronic respiratory failure with hypoxia; J96.22 - Acute and chronic respiratory failure with hypercapnia
[2021-12-17] MEDS: RIVAROXABAN 15 MG TABLET PO SCH (17:05)
--- NOTE | 2021-12-17 18:34 | RAD REPORT ---
EXAM DESCRIPTION: XR CHEST 1 VIEW 12/17/2021 2:58 AM CDT CLINICAL HISTORY: Worsening respiratory status COMPARISON: 12/12/2021. TECHNIQUE: XR CHEST 1 VIEW FINDINGS: The heart is enlarged. There is mild bibasilar airspace disease. There may be small pleura l effusions. There is no pneumothorax. There are no acute osseous findings. Right PICC line is unchan ged. IMPRESSION: Improved aeration of the lungs. Electronically signed by: Vishal Torrez MD 12/17/2021 5:03 AM CDT Due to temporary technical issues with the PACS/Fluency reporting system, reports are being signed by the in house radiologists without review as a courtesy to insure prompt reporting. The interpreting radiologist is fully responsible for the content of the report.
[2021-12-17] MEDS: ATORVASTATIN 40 MG TAB PO SCH (20:34)
[2021-12-17] MEDS ORDERED: ESZOPICLONE 1 MG TAB PO ONE (23:04)
[2021-12-17] MEDS ORDERED: ZOLPIDEM TARTRATE 5 MG TABLET PO ONE (23:14)
[2021-12-18] MEDS: IPRATROPIUM BROM 0.5MG/2.5ML NEB SCH ×4 (01:30→20:40)
[2021-12-18] MEDS: ALBUTEROL 2.5 MG/3 ML NEB SOL NEB SCH ×4 (01:30→20:40)
[2021-12-18 05:13] LABS: Magnesium 1.9 mg/dL (1.8-2.4); Phosphorus 4.5 mg/dL (2.5-4.9); Potassium 3.6 mmol/L (3.5-5.1)
[2021-12-18] MEDS: ARFORMOTEROL TARTRATE 15 MCG/2 ML VIAL.NEB NEB SCH ×2 (07:40→20:40)
[2021-12-18] MEDS: METHYLPREDNISOLONE 40 MG INJ IV SCH ×2 (08:29→21:03)
[2021-12-18] MEDS: NICOTINE 21 MG/PAT TD SCH (08:29)
[2021-12-18] MEDS: MUPIROCIN 2% OINT 22GM TUBE TOP SCH ×2 (08:30→21:02)
[2021-12-18] MEDS: FUROSEMIDE 40 MG/4 ML VIAL IV SCH ×2 (08:30→17:53)
[2021-12-18] MEDS: AMLODIPINE 10 MG TAB PO SCH (08:31)
[2021-12-18] MEDS: PARoxetine HCL 10 MG TAB PO SCH (08:31)
[2021-12-18] MEDS: METOPROLOL TAR 50 MG TAB PO SCH (08:32)
[2021-12-18] MEDS: SPIRONOLACTONE 25 MG TABLET PO SCH (08:32)
--- NOTE | 2021-12-18 09:12 | P.PN ---
Date of Service: 12/18/21 Subjective Patient respiratory status is improving. Continue on BiPAP support. Patient is awake and alert. Review of Systems 10-point ROS is otherwise unremarkable Physical Examination - Vital Signs reviewed - Physical Exam General: Patient more lethargic and confused., Obese Respiratory: Diminished, Crackles/rales, Expiratory wheezes Cardiovascular: Regular rate/rhythm, Normal S1 S2 Gastrointestinal: Normal bowel sounds, Soft and benign, Non-distended, No tenderness Musculoskeletal: No clubbing, No tenderness, Swelling Neurological: No focal deficits Assessment & Plan - Problems (Diagnosis) (1) AMS Onset Date: 12/10/2021 Current Visit: No Status: Acute (2) CHF (congestive heart failure)/Atrial fibrillation with rapid ventricular response Onset Date: 05/18/16 Current Visit: No Status: Acute (3) COPD exacerbation Onset Date: 06/01/16 Current Visit: No Status: Acute (4) Respiratory failure Current Visit: No Status: Acute Qualifiers: Chronicity: acute on chronic (5) Diastolic CHF Onset Date: 05/28/16 Current Visit: No Status: Chronic Qualifiers: Qualified Code(s): I50.32 - Chronic diastolic (congestive) heart failure - Plan Continue with plan of care as mentioned below: 1. Continue with albuterol and Atrovent nebs 2. Continue with IV steroids 3. Continue with diuretics 4. Echocardiogram with moderate pulmonary hypertension 5. BiPAP support; continue O2 per protocol 6. Repeat chest x-ray in the morning 7. Pulmonary consultation appreciated 8. GI and DVT prophylaxis - Advance Directives Does patient have a Living Will: No Does patient have a Durable POA for Healthcare: No - Code Status/Comfort Care Code Status: Full Code
--- NOTE | 2021-12-18 12:18 | P.PN ---
Subjective Date of Service: 12/18/21 Chief Complaint: Respiratory failure Again patient is not doing well he continues to remain hypoxic persistently refused intubation only in the case of an emergency Review of Systems General: Weakness Respiratory: Shortness of Breath Physical Examination - Vital Signs Temperature: 98.8 F Blood Pressure: 122/85 Pulse: 111 Respirations: 31 Pulse Ox (%): 81 - Physical Exam General: Alert, Oriented x3, Moderate distress Respiratory: Clear to auscultation bilaterally, Diminished Cardiovascular: Regular rate/rhythm, Edema - Studies Medications List Reviewed: Yes Assessment And Plan - Current Problems (Diagnosis) (1) Respiratory failure with hypoxia and hypercapnia Current Visit: Yes Status: Acute Plan: Respiratory failure Qualifiers: Chronicity: acute on chronic Qualified Code(s): J96.21 - Acute and chronic respiratory failure with hypoxia; J96.22 - Acute and chronic respiratory failure with hypercapnia - Plan Respiratory failure no change in patient's condition patient has been aggressively being diuresed his BUN is now increasing to reduce dose of Lasix blood gases reordered chest x-ray did show an improvement yesterday patient is adequately anticoagulated repeat arterial blood gases
[2021-12-18] MEDS: ENSURE HIGH PROTEIN 237 ML CAN PO SCH ×2 (13:07→21:00)
[2021-12-18] MEDS: RIVAROXABAN 15 MG TABLET PO SCH (17:53)
[2021-12-18 18:51] LABS: Arterial Blood Carboxyhemoglob 1.1 % (0-1.5); Blood Gas Oxyhemoglobin 78.7 % (94-97); Blood O2 Saturation 80.5 % (92-98.5)
[2021-12-18] MEDS: ATORVASTATIN 40 MG TAB PO SCH (21:02)
[2021-12-19] MEDS: ALBUTEROL 2.5 MG/3 ML NEB SOL NEB SCH ×4 (01:50→20:25)
[2021-12-19] MEDS: IPRATROPIUM BROM 0.5MG/2.5ML NEB SCH ×4 (01:50→20:25)
--- NOTE | 2021-12-19 02:05 | PN ---
Date of Progress Note: 12/18/2021 Chief Complaint: Acute kidney injury secondary to cardiorenal syndrome and acute tubular necrosis. Subjective: Urine output is nonoliguric. Acute kidney injury gradually resolved and serum creatinin e level is at baseline. Review of Systems: The patient is bed ridden. He denies complaints today. Objective: Lungs: Coarse breath sounds bilaterally. Heart: S1, S2. Abdomen: Soft. Benign. Extremities: No edema. Impression And Plan: 1.Acute kidney injury secondary to ischemic acute tubular necrosis, complicated by cardiorenal syndr ome in setting of rapid atrial fibrillation with hypotension. Renal function has improved. Baseline creatinine level is ranging from 0.8-1.0 and it is consistent with the previous baseline from November 2020. The patient will continue p.o. fluid intake. At this time, he does not require IV fluids. 2.Acute respiratory acidosis secondary to chronic obstructive pulmonary disease exacerbation with ra pid atrial fibrillation, congestive heart failure, [id number] with diastolic dysfunction. BNP is elevated. The patient may benefit from diuretic. Continue Lasix and spironolactone. Continue Bi PAP. 3.Metabolic alkalosis. Bicarbonate improved. No need to resume Diamox at this point. Monitor labs . 4.Acute exacerbation of chronic obstructive pulmonary disease. The patient had workup done and TTE previously showed normal left ventricular ejection fraction and left atrium was dilated. The patient had small pleural effusion on recent TTE and right ventricular systolic pressure was elevated from 5 0 to 55 mmHg. The patient has pulmonary hypertension. Await recommendation from Pulmonary. 5.Hypertension. Blood pressure controlled. Continue amlodipine. EB/MODL Voice ID: [id number] Report ID: [id number]
[2021-12-19 05:17] LABS: Absolute Lymphocytes (CBC) 0.4 K/uL (0.7-4.9); Hematocrit 45.1 % (39.6-49.0); Lymphocytes % 3.2 % (15.3-44.8); MPV 9.2 fL (7.6-11.3); RBC Red Blood Cell Count 6.03 M/uL (4.33-5.43)
[2021-12-19 05:22] LABS: Magnesium 2.1 mg/dL (1.8-2.4); Phosphorus 4.3 mg/dL (2.5-4.9); Potassium 3.7 mmol/L (3.5-5.1)
[2021-12-19 06:30] LABS: Platelet Estimate DECR
[2021-12-19 06:31] LABS: Blood Morphology Comment NOT SEEN (NOT SEEN)
[2021-12-19] MEDS: ARFORMOTEROL TARTRATE 15 MCG/2 ML VIAL.NEB NEB SCH ×2 (07:58→20:25)
[2021-12-19] MEDS ORDERED: POTASSIUM CL SA 10 MEQ TAB PO ONE (09:00)
[2021-12-19] MEDS: SPIRONOLACTONE 25 MG TABLET PO SCH (10:13)
[2021-12-19] MEDS: METHYLPREDNISOLONE 40 MG INJ IV SCH ×2 (10:13→20:43)
[2021-12-19] MEDS: METOPROLOL TAR 50 MG TAB PO SCH (10:13)
[2021-12-19] MEDS: PARoxetine HCL 10 MG TAB PO SCH (10:14)
[2021-12-19] MEDS: NICOTINE 21 MG/PAT TD SCH (10:14)
[2021-12-19] MEDS: FUROSEMIDE 40 MG/4 ML VIAL IV SCH ×2 (10:14→17:33)
[2021-12-19] MEDS: AMLODIPINE 10 MG TAB PO SCH (10:14)
[2021-12-19] MEDS: MUPIROCIN 2% OINT 22GM TUBE TOP SCH ×2 (10:15→20:44)
[2021-12-19] MEDS: ENSURE HIGH PROTEIN 237 ML CAN PO SCH ×2 (10:16→20:44)
--- NOTE | 2021-12-19 12:23 | P.PN ---
Subjective Date of Service: 12/19/21 Chief Complaint: Respiratory failure Patient is condition stable no change he continues to remain hypoxic refuses intubation he wants to be intubated if he is in a cardiac arrest very alert responsive cooperative Review of Systems General: Weakness Respiratory: Shortness of Breath Physical Examination - Vital Signs Temperature: 98.2 F Blood Pressure: 120/78 Pulse: 98 Respirations: 21 Pulse Ox (%): 83 - Physical Exam General: Alert, In no apparent distress Respiratory: Clear to auscultation bilaterally, Diminished - Studies Medications List Reviewed: Yes Assessment And Plan - Current Problems (Diagnosis) (1) Respiratory failure with hypoxia and hypercapnia Current Visit: Yes Status: Acute Qualifiers: Chronicity: acute on chronic Qualified Code(s): J96.21 - Acute and chronic respiratory failure with hypoxia; J96.22 - Acute and chronic respiratory failure with hypercapnia - Plan Respiratory failure no change continues to remain very hypoxic patient is now become thrombocytopenic platelet count is dropped blood gases still show significant hypoxemia chest x-ray shows a right lower lobe infiltrate significant cardiomegaly hold Xarelto for now prognosis poor he continues to remain alert responsive cooperative
--- NOTE | 2021-12-19 17:24 | PN ---
Date of Progress Note: 12/19/2021 Subjective: Patient is still on BiPAP still requiring high FiO2 for oxygenation. The patient requiring BiPAP with 100%. The patient was admitted with acute kidney injury secondary to cardiorenal, respiratory failure. Physical Examination: Vital Signs: Blood pressure 120/78, pulse of 98, afebrile. Chest: Decreased entry bilateral base. The patient is morbidly obese. Heart: S1, S2. Regular. Abdomen: Morbidly obese. Could not appreciate any organomegaly. Extremities: Trace edema. Venous stasis change bilateral. Laboratory Data: WBC 12.3, H and H 13.8/45.1. Sodium 139, potassium 3.7, bicarb 38, BUN 45, creatinine 0.9, calcium 8.8, phosphorus 4.3, magnesium 2.1. Current Medications: The patient on include amlodipine 10 mg, atorvastatin, metoprolol 50, spironolactone 50, Geodon, Lasix 40 b.i.d., breathing treatment, KCl. Assessment And Plan: 1. Acute kidney injury secondary to cardiorenal, recovered, currently looked to me on the normal volume. We will continue current diuresis dose including Lasix 40 mg b.i.d., spironolactone 50 mg daily and we will monitor. 2. Hypertension, controlled, optimal. Continue current medication. 3. Hypokalemia. We will supplement. Hypomagnesemia has been ruled out. 4. Respiratory failure, multifactorial, secondary to over volume/chronic obstructive pulmonary disease exacerbation. We will continue current diuresis. We will follow up with Pulmonary. 5. Hypercapnic respiratory failure as by Pulmonary. 6. Acidosis with compensation of metabolic alkalosis. Continue current treatment. ENE/MODL Voice ID: [id number] Report ID: [id number] CASEY
--- NOTE | 2021-12-19 18:13 | P.PN ---
Date of Service: 12/19/21 Subjective Patient is stable with no new changes. Remains on BiPAP and high flow with high oxygen requirements. Prognosis is poor. Review of Systems 10-point ROS is otherwise unremarkable Physical Examination - Vital Signs reviewed - Physical Exam General: Patient more lethargic and confused., Obese Respiratory: Diminished, Crackles/rales, Expiratory wheezes Cardiovascular: Regular rate/rhythm, Normal S1 S2 Gastrointestinal: Normal bowel sounds, Soft and benign, Non-distended, No tenderness Musculoskeletal: No clubbing, No tenderness, Swelling Neurological: No focal deficits Assessment & Plan - Problems (Diagnosis) (1) AMS Onset Date: 12/10/2021 Current Visit: No Status: Acute (2) CHF (congestive heart failure)/Atrial fibrillation with rapid ventricular response Onset Date: 05/18/16 Current Visit: No Status: Acute (3) COPD exacerbation Onset Date: 06/01/16 Current Visit: No Status: Acute (4) Respiratory failure Current Visit: No Status: Acute Qualifiers: Chronicity: acute on chronic (5) Diastolic CHF Onset Date: 05/28/16 Current Visit: No Status: Chronic Qualifiers: Qualified Code(s): I50.32 - Chronic diastolic (congestive) heart failure - Plan Continue with plan of care as mentioned below: 1. Continue with albuterol and Atrovent nebs 2. Continue with IV steroids 3. Continue with diuretics 4. Echocardiogram with moderate pulmonary hypertension 5. BiPAP support; continue O2 per protocol 6. Repeat chest x-ray in the morning 7. Pulmonary consultation appreciated 8. GI and DVT prophylaxis - Advance Directives Does patient have a Living Will: No Does patient have a Durable POA for Healthcare: No - Code Status/Comfort Care Code Status: Full Code
[2021-12-19] MEDS: ZOLPIDEM TARTRATE 10 MG TABLET PO PRN (20:43)
[2021-12-19] MEDS: ATORVASTATIN 40 MG TAB PO SCH (20:43)
[2021-12-20] MEDS: ALBUTEROL 2.5 MG/3 ML NEB SOL NEB SCH ×4 (01:31→20:00)
[2021-12-20] MEDS: IPRATROPIUM BROM 0.5MG/2.5ML NEB SCH ×4 (01:31→20:00)
[2021-12-20 06:45] LABS: BUN Blood Urea Nitrogen 34 mg/dL (7-18); Bicarbonate 37 mmol/L (21-32); Glucose Level 158 mg/dL (74-106); Magnesium 2.2 mg/dL (1.8-2.4); Phosphorus 3.7 mg/dL (2.5-4.9); Potassium 4.1 mmol/L (3.5-5.1); Sodium Level 139 mmol/L (136-145)
[2021-12-20] MEDS: ARFORMOTEROL TARTRATE 15 MCG/2 ML VIAL.NEB NEB SCH ×2 (08:47→20:00)
[2021-12-20] MEDS: MUPIROCIN 2% OINT 22GM TUBE TOP SCH ×2 (09:00→20:28)
[2021-12-20] MEDS: PARoxetine HCL 10 MG TAB PO SCH (09:16)
[2021-12-20] MEDS: METOPROLOL TAR 50 MG TAB PO SCH (09:16)
[2021-12-20] MEDS: FUROSEMIDE 40 MG/4 ML VIAL IV SCH ×2 (09:16→17:29)
[2021-12-20] MEDS: METHYLPREDNISOLONE 40 MG INJ IV SCH ×2 (09:16→20:27)
[2021-12-20] MEDS: AMLODIPINE 10 MG TAB PO SCH (09:17)
[2021-12-20] MEDS: ENSURE HIGH PROTEIN 237 ML CAN PO SCH ×2 (09:18→20:27)
[2021-12-20] MEDS: SPIRONOLACTONE 25 MG TABLET PO SCH (09:20)
--- NOTE | 2021-12-20 13:03 | P.PN ---
Date of Service: 12/20/21 Subjective Patient with no significant changes. His prognosis remains very poor. Not really changing on BiPAP settings. Patient refuses intubation. Spoke with pulmonary and they recommended transfer to the floor and continue to closely monitor. Will discuss with patient and his sister regarding hospice care as well. Review of Systems 10-point ROS is otherwise unremarkable Physical Examination - Vital Signs reviewed - Physical Exam General: Patient more lethargic and confused., Obese Respiratory: Diminished, Crackles/rales, Expiratory wheezes Cardiovascular: Regular rate/rhythm, Normal S1 S2 Gastrointestinal: Normal bowel sounds, Soft and benign, Non-distended, No tenderness Musculoskeletal: No clubbing, No tenderness, Swelling Neurological: No focal deficits Assessment & Plan - Problems (Diagnosis) (1) AMS Onset Date: 12/10/2021 Current Visit: No Status: Acute (2) CHF (congestive heart failure)/Atrial fibrillation with rapid ventricular response Onset Date: 05/18/16 Current Visit: No Status: Acute (3) COPD exacerbation Onset Date: 06/01/16 Current Visit: No Status: Acute (4) Respiratory failure Current Visit: No Status: Acute Qualifiers: Chronicity: acute on chronic (5) Diastolic CHF Onset Date: 05/28/16 Current Visit: No Status: Chronic Qualifiers: Qualified Code(s): I50.32 - Chronic diastolic (congestive) heart failure - Plan Continue with plan of care as mentioned below: 1. Continue with albuterol and Atrovent nebs 2. Continue with IV steroids 3. Continue with diuretics 4. Echocardiogram with moderate pulmonary hypertension 5. BiPAP support; continue O2 per protocol 6. Repeat chest x-ray in the morning 7. Pulmonary consultation appreciated 8. GI and DVT prophylaxis - Advance Directives Does patient have a Living Will: No Does patient have a Durable POA for Healthcare: No - Code Status/Comfort Care Code Status: Full Code
--- NOTE | 2021-12-20 14:24 | PN ---
Date of Progress Note: 12/20/2021 Subjective: The patient doing the same, still hypoxemic requiring high FiO2 on BiPAP. The patient h as been followed up by Pulmonary. The patient had acute kidney injury secondary to cardiorenal. The patient has been on diuresis, responding very well. Physical Examination: Vital Signs: When I saw the patient; blood pressure 150/85, pulse of 100. The patient on BiPAP 100% . Chest: Decreased entry bilateral base. Heart: S1, S2. Systolic murmur. Abdomen: Morbidly obese. Could not appreciate any organomegaly. Extremities: Venous stasis change. Bilateral trace edema. Neurological: Alert, oriented x3. No focal. Laboratory Data: WBC 12.3, H and H 13.8/45.1. Sodium 139, potassium 4.1, bicarb 37, BUN 34, creatin ine 0.7, calcium 8.9, phosphorus 3.7, magnesium 2.2. ABG; pH 7.48, CO2 46, O2 48. Current Medications: The patient on include; 1.Breathing treatment. 2.Amlodipine 10 mg. 3.Metoprolol 50. 4.Spironolactone 50 daily. 5.Tylenol. 6.Ensure. 7.Lasix 40 b.i.d. 8.Solu-Medrol. Assessment And Plan: 1.Acute kidney injury secondary to cardiorenal, currently normal volume. We will continue current d iuresis dose and we will monitor. 2.Hypertension, controlled. Continue utilize the blood pressure to establish better volume control. 3.Congestive heart failure exacerbation with respiratory failure. Volume has been optimized. Chandu nue current diuresis. 4.Hypercapnic respiratory failure secondary to severe obstructive sleep apnea with respiratory failu re as by Pulmonary. 5.Respiratory failure, multifactorial, secondary to cardiorenal/chronic obstructive pulmonary diseas e exacerbation. We will continue with diuresing the patient and we will follow up. 6.Hypokalemia, status post supplement, status post spironolactone, maintained good. Continue curren t treatment. 7.Pneumonia with chronic obstructive pulmonary disease exacerbation as by Pulmonary. 8.Metabolic alkalosis secondary to hypercapnic respiratory acidosis, stable. ENE/MODL Voice ID: [id number] Report ID: [id number]
[2021-12-20] MEDS: ATORVASTATIN 40 MG TAB PO SCH (20:28)
[2021-12-20] MEDS: ZOLPIDEM TARTRATE 10 MG TABLET PO PRN (20:29)
[2021-12-21] MEDS: ALBUTEROL 2.5 MG/3 ML NEB SOL NEB SCH ×4 (02:40→20:58)
[2021-12-21] MEDS: IPRATROPIUM BROM 0.5MG/2.5ML NEB SCH ×4 (02:40→20:58)
[2021-12-21] MEDS: ARFORMOTEROL TARTRATE 15 MCG/2 ML VIAL.NEB NEB SCH ×2 (07:50→20:58)
[2021-12-21] MEDS: AMLODIPINE 10 MG TAB PO SCH (09:00)
[2021-12-21] MEDS: ENSURE HIGH PROTEIN 237 ML CAN PO SCH ×2 (09:00→20:25)
[2021-12-21] MEDS: MUPIROCIN 2% OINT 22GM TUBE TOP SCH ×2 (09:00→20:35)
[2021-12-21] MEDS: METHYLPREDNISOLONE 40 MG INJ IV SCH ×2 (10:11→20:37)
[2021-12-21] MEDS: FUROSEMIDE 40 MG/4 ML VIAL IV SCH ×2 (10:13→17:24)
[2021-12-21] MEDS: PARoxetine HCL 10 MG TAB PO SCH (10:13)
[2021-12-21] MEDS: METOPROLOL TAR 50 MG TAB PO SCH (10:15)
[2021-12-21] MEDS: SPIRONOLACTONE 25 MG TABLET PO SCH (10:16)
--- NOTE | 2021-12-21 12:00 | RAD REPORT ---
EXAM DESCRIPTION: RAD - Chest Single View - 12/21/2021 11:52 am CLINICAL HISTORY: resp failure COMPARISON: Chest Single View dated 12/17/2021; Chest Single View dated 12/12/2021; Chest Single View d ated 12/11/2021; Chest Single View dated 12/10/2021 FINDINGS: Lines: Right subclavian approach PICC Lungs: Widespread bilateral pulmonary opacities are similar to 12/17/2021. More confluent linear opac ities are present at the right lung base but which are similar. Pleural: Bilateral pleural effusions. Cardiac: Cardiomegaly. Bones: No acute fractures. Other: IMPRESSION: No significant change in aeration of the lungs compared with 12/17/2021. Continued pulmo nary edema and bilateral pleural effusions present.
--- NOTE | 2021-12-21 15:35 | PN ---
Date of Progress Note: 12/21/2021 Subjective: The patient has been transferred out of the unit. The patient was admitted with respira tory failure secondary to COPD exacerbation, cardiorenal syndrome. The patient had acute kidney inju ry, has been diuresed well. The patient continued to be hypoxemic. The patient required high-flow F iO2 at 100%, but maintaining good mental status. Physical Examination: Vital Signs: Blood pressure 107/73, pulse of 97, afebrile. The patient had good urine output, voidi ng. Chest: Decreased entry bilateral. Heart: S1, S2. Regular. Abdomen: Morbidly obese. Could not appreciate any organomegaly. Extremities: Venous stasis changes bilateral. Laboratory Data: WBC 12.3, H and H 13.8/45.1, platelet of 69. Sodium 139, potassium 4.1, bicarb 37, BUN 34, creatinine 0.7, calcium 8.9, phosphorus 3.7, magnesium 2.2. Current Medications: The patient on include amlodipine 10 mg, atorvastatin 40 mg, metoprolol 50 mg d aily, spironolactone 50 mg daily, Tylenol, Paxil, Ambien, Lasix 40 b.i.d., breathing treatment. Assessment And Plan: 1.Acute kidney injury secondary to cardiorenal, currently the patient looked to me on normal volume side. I am going to continue the patient on current diuresis including Lasix 40 mg b.i.d. and spiron olactone 50. We will get new chest x-ray for better evaluation of the fluid status of the patient an d we will monitor. 2.Hypertension, controlled, optimal. Continue current treatment. 3.Respiratory failure, multifactorial, secondary to chronic obstructive pulmonary disease exacerbati on and cardiorenal. We will follow up with Pulmonary. Continue high FiO2. Continue current diuresi s dose. We will follow up chest x-ray. 4.Hypercapnic respiratory failure with metabolic alkalosis as compensation without any sign of contr action alkalosis currently. I am going to continue to monitor the patient on current diuresis dose. MA/MODL Voice ID: [id number] Report ID: [id number]
[2021-12-21] MEDS: ATORVASTATIN 40 MG TAB PO SCH (20:36)
[2021-12-22] MEDS: ALBUTEROL 2.5 MG/3 ML NEB SOL NEB SCH ×4 (01:41→19:40)
[2021-12-22] MEDS: IPRATROPIUM BROM 0.5MG/2.5ML NEB SCH ×4 (01:41→19:40)
[2021-12-22] MEDS: ARFORMOTEROL TARTRATE 15 MCG/2 ML VIAL.NEB NEB SCH ×2 (07:49→19:40)
--- NOTE | 2021-12-22 08:57 | P.PN ---
Subjective Date of Service: 12/23/21 Chief Complaint: Respiratory failure Subjective: Other (Reports having increased SOB after mild physical exertion.) Physical Examination - Vital Signs Temperature: 96.9 F Blood Pressure: 131/74 Pulse: 86 Respirations: 20 Pulse Ox (%): 94 - Physical Exam General: Mild distress HEENT: Atraumatic, Normocephalic Neck: Supple Respiratory: Other (symmetric chest expansion) Cardiovascular: No rubs, No murmurs Gastrointestinal: Soft and benign Musculoskeletal: No clubbing Integumentary: No warmth Neurological: Normal speech, Normal tone Urinary: Other (no bladder distention) External genitalia: Deferred Rectal: Deferred - Studies Medications List Reviewed: Yes Assessment And Plan - Plan # TARIK 2/2 ischemic ATN 2/2 CRS1 in the setting of rapid afib w/ hypotension TARIK resolved, SCr 0.7-0.8 Baseline serum creatinine 0.8-1.0 as of November 2020 [place] po fluid intake # Acute respi acidosis 2/2 COPD exacerbation + rapid afib +/- acute on chronic diastolic CHF BNP significantly elevated Chest CT in 2013 showed no evidence of pulmonary hypertension Continue lasix + basilio On bipap, remains hypoxic # Metabolic alkalosis Repeat ABG on 12/22 showed combined metab alk + mild respi alk HCO3 increased to 37 Resume Diamox 500 mg IV bid x 2 doses only # Acute exacerbation of COPD TTE in January 2019 showed normal LVEF, left atrium dilated TTE on 12/08/21 showed LVEF 70%, small pericardial effusion, RVSP 50-55 mmHg Has chronic serum bicarb elevation 2/2 COPD Continue inhalers and steroids BiPAP prn # Afib w/ RVR HR now better controlled # Htn BP at goal Cont current BP med regimen
[2021-12-22] MEDS: ENSURE HIGH PROTEIN 237 ML CAN PO SCH (09:00)
[2021-12-22] MEDS: PARoxetine HCL 10 MG TAB PO SCH (09:17)
[2021-12-22] MEDS: predniSONE 10 MG TAB PO SCH ×2 (09:17→20:05)
[2021-12-22] MEDS: AMLODIPINE 10 MG TAB PO SCH (09:17)
[2021-12-22] MEDS: FUROSEMIDE 40 MG TABLET PO SCH (09:18)
[2021-12-22] MEDS: MUPIROCIN 2% OINT 22GM TUBE TOP SCH ×2 (09:18→20:06)
[2021-12-22] MEDS: SPIRONOLACTONE 25 MG TABLET PO SCH (09:18)
[2021-12-22] MEDS: METOPROLOL TAR 50 MG TAB PO SCH (09:18)
[2021-12-22] MEDS: ACETAMINOPHEN 500 MG TAB PO PRN (11:15)
[2021-12-22] MEDS ORDERED: ENSURE HIGH PROTEIN 237 ML CAN PO PRN (11:50)
--- NOTE | 2021-12-22 17:47 | P.PN ---
Date of Service: 12/22/21 Subjective Oxygen requirements are starting to improve. Continue trying to wean off of BiPAP Review of Systems 10-point ROS is otherwise unremarkable Physical Examination - Vital Signs reviewed - Physical Exam General: Patient more lethargic and confused., Obese Respiratory: Diminished, Crackles/rales, Expiratory wheezes Cardiovascular: Regular rate/rhythm, Normal S1 S2 Gastrointestinal: Normal bowel sounds, Soft and benign, Non-distended, No tenderness Musculoskeletal: No clubbing, No tenderness, Swelling Neurological: No focal deficits Assessment & Plan - Problems (Diagnosis) (1) AMS Onset Date: 12/10/2021 Current Visit: No Status: Acute (2) CHF (congestive heart failure)/Atrial fibrillation with rapid ventricular response Onset Date: 05/18/16 Current Visit: No Status: Acute (3) COPD exacerbation Onset Date: 06/01/16 Current Visit: No Status: Acute (4) Respiratory failure Current Visit: No Status: Acute Qualifiers: Chronicity: acute on chronic (5) Diastolic CHF Onset Date: 05/28/16 Current Visit: No Status: Chronic Qualifiers: Qualified Code(s): I50.32 - Chronic diastolic (congestive) heart failure - Plan Continue with plan of care as mentioned below: 1. Continue with albuterol and Atrovent nebs 2. Continue with IV steroids 3. Continue with diuretics 4. Echocardiogram with moderate pulmonary hypertension 5. BiPAP support; continue O2 per protocol 6. Repeat chest x-ray in the morning 7. Pulmonary consultation appreciated 8. GI and DVT prophylaxis - Advance Directives Does patient have a Living Will: No Does patient have a Durable POA for Healthcare: No - Code Status/Comfort Care Code Status: Full Code
[2021-12-22 18:41] LABS: Arterial Blood Carboxyhemoglob 1.1 % (0-1.5); Blood Gas Oxyhemoglobin 92.7 % (94-97); Blood O2 Saturation 94.6 % (92-98.5)
[2021-12-22] MEDS: ATORVASTATIN 40 MG TAB PO SCH (20:05)
[2021-12-23] MEDS: ACETAZOLAMIDE 500 MG IV IV SCH ×2 (01:01→10:09)
[2021-12-23] MEDS: ALBUTEROL 2.5 MG/3 ML NEB SOL NEB SCH ×4 (01:20→19:30)
[2021-12-23] MEDS: IPRATROPIUM BROM 0.5MG/2.5ML NEB SCH ×4 (01:20→19:30)
[2021-12-23] MEDS: ARFORMOTEROL TARTRATE 15 MCG/2 ML VIAL.NEB NEB SCH ×2 (08:11→19:30)
[2021-12-23] MEDS: MUPIROCIN 2% OINT 22GM TUBE TOP SCH ×2 (09:00→20:52)
[2021-12-23] MEDS: SPIRONOLACTONE 25 MG TABLET PO SCH (09:32)
[2021-12-23] MEDS: PARoxetine HCL 10 MG TAB PO SCH (09:32)
[2021-12-23] MEDS: FUROSEMIDE 40 MG TABLET PO SCH (09:33)
[2021-12-23] MEDS: METOPROLOL TAR 50 MG TAB PO SCH (09:33)
[2021-12-23] MEDS: predniSONE 10 MG TAB PO SCH ×2 (09:34→20:52)
--- NOTE | 2021-12-23 15:35 | P.PN ---
Subjective Date of Service: 12/23/21 Chief Complaint: Respiratory failure Today no overnight events stable VS still on Vapotherm, , FiO2 21% Physical exam General: Awake and alert, NAD , morbidley obese, on Vapotherm neck: Supple, no elevated JVD CHEST; decreased air entry B/l , no rale sor wheezes HEART : RRR. Normal S1,2 no murmur or rub Abd: soft, Nt Ext: no edema Skin : No rash A/P # TARIK 2/2 ischemic ATN 2/2 CRS1 in the setting of rapid afib w/ hypotension TARIK resolved, SCr 0.7-0.8 Baseline serum creatinine 0.8-1.0 as of November 2020 [place] po fluid intake # Acute respi acidosis 2/2 COPD exacerbation + rapid afib +/- acute on chronic diastolic CHF BNP significantly elevated Chest CT in 2013 showed no evidence of pulmonary hypertension Continue lasix + basilio On bipap, remains hypoxic # Metabolic alkalosis Repeat ABG on 12/22 showed combined metab alk + mild respi alk stable # Acute exacerbation of COPD TTE in January 2019 showed normal LVEF, left atrium dilated TTE on 12/08/21 showed LVEF 70%, small pericardial effusion, RVSP 50-55 mmHg Has chronic serum bicarb elevation 2/2 COPD Continue inhalers and steroids BiPAP prn # Afib w/ RVR HR now controlled # Htn BP at goal Cont current BP med regimen Physical Examination - Vital Signs Temperature: 97.5 F Blood Pressure: 115/71 Pulse: 82 Respirations: 20 Pulse Ox (%): 93 - Studies Medications List Reviewed: Yes
--- NOTE | 2021-12-23 15:53 | P.PN ---
Date of Service: 12/23/21 Subjective Spoke with sister and she wants to continue to do everything. She does understand if he does not improve and get off of the BiPAP he will probably need comfort measures to get home. He has been slowly improving. Continue with diuresing and monitor oxygenation. Review of Systems 10-point ROS is otherwise unremarkable Physical Examination - Vital Signs reviewed - Physical Exam General: Patient more lethargic and confused, Obese Respiratory: Diminished, Crackles/rales, Expiratory wheezes Cardiovascular: Regular rate/rhythm, Normal S1 S2 Gastrointestinal: Normal bowel sounds, Soft and benign, Non-distended, No tenderness Musculoskeletal: No clubbing, No tenderness, Swelling Neurological: No focal deficits Assessment & Plan - Problems (Diagnosis) (1) AMS Onset Date: 12/10/2021 Current Visit: No Status: Acute (2) CHF (congestive heart failure)/Atrial fibrillation with rapid ventricular response Onset Date: 05/18/16 Current Visit: No Status: Acute (3) COPD exacerbation Onset Date: 06/01/16 Current Visit: No Status: Acute (4) Respiratory failure Current Visit: No Status: Acute Chronicity: acute on chronic (5) Diastolic CHF Onset Date: 05/28/16 Current Visit: No Status: Chronic Qualified Code(s): I50.32 - Chronic diastolic (congestive) heart failure - Plan Continue with plan of care as mentioned below: 1. Continue with albuterol and Atrovent nebs 2. Continue with steroids tapering dosage 3. Continue with diuretics 4. Echocardiogram with moderate pulmonary hypertension 5. BiPAP support; continue O2 per protocol 6. Repeat chest x-ray in the morning 7. Pulmonary consultation appreciated 8. GI and DVT prophylaxis - Advance Directives Does patient have a Living Will: No Does patient have a Durable POA for Healthcare: No - Code Status/Comfort Care Code Status: Full Code
[2021-12-23] MEDS ORDERED: ALBUMIN HUMAN 25% 12.5 GM, FUROSEMIDE 100 MG in NA CHLORIDE 0.9% 40 ML IV SCH (16:00)
[2021-12-23] MEDS: ATORVASTATIN 40 MG TAB PO SCH (20:52)
[2021-12-23] MEDS: ZOLPIDEM TARTRATE 10 MG TABLET PO PRN (21:04)
[2021-12-24] MEDS: IPRATROPIUM BROM 0.5MG/2.5ML NEB SCH ×4 (01:35→19:40)
[2021-12-24] MEDS: ALBUTEROL 2.5 MG/3 ML NEB SOL NEB SCH ×2 (01:35→08:05)
[2021-12-24 05:48] LABS: Absolute Lymphocytes (CBC) 0.6 K/uL (0.7-4.9); Hematocrit 47.2 % (39.6-49.0); Lymphocytes % 5.3 % (15.3-44.8); MPV 9.4 fL (7.6-11.3); RBC Red Blood Cell Count 6.21 M/uL (4.33-5.43)
[2021-12-24 05:54] LABS: BUN Blood Urea Nitrogen 30 mg/dL (7-18); Bicarbonate 32 mmol/L (21-32); Glucose Level 117 mg/dL (74-106); Magnesium 2.1 mg/dL (1.8-2.4); Potassium 3.9 mmol/L (3.5-5.1); Sodium Level 135 mmol/L (136-145)
[2021-12-24] MEDS: ARFORMOTEROL TARTRATE 15 MCG/2 ML VIAL.NEB NEB SCH ×2 (08:05→19:40)
[2021-12-24] MEDS: SPIRONOLACTONE 25 MG TABLET PO SCH (10:08)
[2021-12-24] MEDS: METOPROLOL TAR 50 MG TAB PO SCH (10:08)
[2021-12-24] MEDS: predniSONE 10 MG TAB PO SCH ×2 (10:08→21:14)
[2021-12-24] MEDS: PARoxetine HCL 10 MG TAB PO SCH (10:08)
[2021-12-24] MEDS: FUROSEMIDE 40 MG TABLET PO SCH (10:08)
[2021-12-24] MEDS: MUPIROCIN 2% OINT 22GM TUBE TOP SCH ×2 (10:09→21:19)
--- NOTE | 2021-12-24 10:55 | P.PN ---
Subjective Date of Service: 12/24/21 Chief Complaint: Respiratory failure Patient is feeling better oxygen requirements are declining arterial blood gases improving Review of Systems General: Weakness Respiratory: Shortness of Breath Physical Examination - Vital Signs Temperature: 97.4 F Blood Pressure: 123/72 Pulse: 98 Respirations: 20 Pulse Ox (%): 93 - Physical Exam General: Alert, Oriented x3, Mild distress Respiratory: Clear to auscultation bilaterally, Diminished Cardiovascular: Edema - Studies Medications List Reviewed: Yes Assessment And Plan - Current Problems (Diagnosis) (1) Respiratory failure with hypoxia and hypercapnia Current Visit: Yes Status: Acute Plan: Respiratory failure Qualifiers: Chronicity: acute on chronic Qualified Code(s): J96.21 - Acute and chronic respiratory failure with hypoxia; J96.22 - Acute and chronic respiratory failure with hypercapnia - Plan Patient is gradually improving try to wean down his FiO2 arterial blood gases have improved resume Xarelto labs reviewed thrombocytopenia has resolved renal function is normal
--- NOTE | 2021-12-24 13:38 | P.PN ---
Subjective Date of Service: 12/24/21 Chief Complaint: Respiratory failure Today no overnight events Cr stable Cont lasix and aldactone Physical exam General: Awake and alert, NAD , morbidley obese, on Vapotherm neck: Supple, no elevated JVD CHEST; decreased air entry B/l , no rale sor wheezes HEART : RRR. Normal S1,2 no murmur or rub Abd: soft, Nt Ext: no edema Skin : No rash A/P # TARIK 2/2 ischemic ATN 2/2 CRS1 in the setting of rapid afib w/ hypotension TARIK resolved, SCr 0.7-0.8 Baseline serum creatinine 0.8-1.0 as of November 2020 [place] po fluid intake # Acute respi acidosis 2/2 COPD exacerbation + rapid afib +/- acute on chronic diastolic CHF BNP significantly elevated Chest CT in 2013 showed no evidence of pulmonary hypertension Continue lasix + basilio On bipap, remains hypoxic # Metabolic alkalosis Repeat ABG on 12/22 showed combined metab alk + mild respi alk stable # Acute exacerbation of COPD TTE in January 2019 showed normal LVEF, left atrium dilated TTE on 12/08/21 showed LVEF 70%, small pericardial effusion, RVSP 50-55 mmHg Has chronic serum bicarb elevation 2/2 COPD Continue inhalers and steroids BiPAP prn # Afib w/ RVR HR now controlled # Htn BP at goal Cont current BP med regimen Physical Examination - Vital Signs Temperature: 97.4 F Blood Pressure: 95/67 Pulse: 82 Respirations: 20 Pulse Ox (%): 92 - Studies Medications List Reviewed: Yes
[2021-12-24] MEDS: ALBUTEROL 2.5 MG/3 ML NEB SOL NEB PRN (14:12)
[2021-12-24 15:14] LABS: Arterial Blood Carboxyhemoglob 1.4 % (0-1.5); Blood Gas Oxyhemoglobin 80.1 % (94-97); Blood O2 Saturation 81.9 % (92-98.5)
[2021-12-24] MEDS: RIVAROXABAN 20 MG TABLET PO SCH (16:16)
[2021-12-24] MEDS: ATORVASTATIN 40 MG TAB PO SCH (21:14)
[2021-12-24] MEDS: ZOLPIDEM TARTRATE 10 MG TABLET PO PRN (21:19)
[2021-12-25] MEDS: IPRATROPIUM BROM 0.5MG/2.5ML NEB SCH ×4 (01:35→19:49)
--- NOTE | 2021-12-25 04:17 | P.PN ---
Date of Service: 12/24/21 Subjective Patient is a 61-year-old gentleman who is morbidly obese and a history of tobacco abuse who came to the hospital with hypercapnia and hypoxemia. Patient was also in atrial fibrillation with rapid ventricular response. Patient ended up in the intensive care unit for a week. He is slowly been improving and we have been weaning down his FiO2 gradually. Continuing to diurese along with nebs, steroids, and antibiotics. Oxygen requirements are starting to improve. Continue trying to wean off of BiPAP. Pulmonary has seen the patient and they are okay with patient being on the floor with oxygen saturations in the 80-90s as patient is clinically very stable. Patient talks appropriately and interacts with normal conversation. He is no longer tachypneic. Continue to wean him down gradually. Review of Systems 10-point ROS is otherwise unremarkable Physical Examination - Vital Signs reviewed - Physical Exam General: Patient more lethargic and confused., Obese Respiratory: Diminished, Crackles/rales, Expiratory wheezes Cardiovascular: Regular rate/rhythm, Normal S1 S2 Gastrointestinal: Normal bowel sounds, Soft and benign, Non-distended, No tenderness Musculoskeletal: No clubbing, No tenderness, Swelling Neurological: No focal deficits Assessment & Plan - Problems (Diagnosis) (1) AMS Onset Date: 12/10/2021 Current Visit: No Status: Acute (2) CHF (congestive heart failure)/Atrial fibrillation with rapid ventricular response Onset Date: 05/18/16 Current Visit: No Status: Acute (3) COPD exacerbation Onset Date: 06/01/16 Current Visit: No Status: Acute (4) Respiratory failure Current Visit: No Status: Acute Qualifiers: Chronicity: acute on chronic (5) Diastolic CHF Onset Date: 05/28/16 Current Visit: No Status: Chronic Qualifiers: Qualified Code(s): I50.32 - Chronic diastolic (congestive) heart failure - Plan Continue with plan of care as mentioned below: 1. Continue with albuterol and Atrovent nebs; Brovana every 12 2. Continue with IV steroids 3. Continue with diuretics 4. Echocardiogram with moderate pulmonary hypertension 5. BiPAP support; alternate with high flow oxygen. Continue O2 per protocol as mentioned pulmonary is agreeable with oxygen saturations in the 80s to 90s. 6. Chest x-ray every few days 7. Pulmonary consultation appreciated; patient with secondary pulmonary hypertension 8. GI and DVT prophylaxis - Advance Directives Does patient have a Living Will: No Does patient have a Durable POA for Healthcare: No - Code Status/Comfort Care Code Status: Full Code
[2021-12-25] MEDS: ARFORMOTEROL TARTRATE 15 MCG/2 ML VIAL.NEB NEB SCH ×2 (08:26→19:49)
[2021-12-25] MEDS: FUROSEMIDE 40 MG TABLET PO SCH (08:38)
[2021-12-25] MEDS: SPIRONOLACTONE 25 MG TABLET PO SCH (08:39)
[2021-12-25] MEDS: PARoxetine HCL 10 MG TAB PO SCH (08:39)
[2021-12-25] MEDS: predniSONE 10 MG TAB PO SCH ×2 (08:39→20:43)
[2021-12-25] MEDS: METOPROLOL TAR 50 MG TAB PO SCH (08:39)
[2021-12-25] MEDS: MUPIROCIN 2% OINT 22GM TUBE TOP SCH ×2 (08:40→20:43)
--- NOTE | 2021-12-25 08:47 | P.PN ---
Subjective Date of Service: 12/25/21 Chief Complaint: Respiratory failure Subjective: No new changes, Improving Physical Examination - Vital Signs Temperature: 97.0 F Blood Pressure: 113/71 Pulse: 89 Respirations: 24 Pulse Ox (%): 97 - Physical Exam General: Alert, Oriented x3 HEENT: Atraumatic, Normocephalic Neck: Supple Respiratory: Normal air movement Cardiovascular: Regular rate/rhythm, Normal S1 S2 Gastrointestinal: Soft and benign Neurological: Normal speech - Studies Medications List Reviewed: Yes Assessment And Plan - Plan Morbid obesity Respiratory failure with hypoxia and hypercapnia requiring BiPAP therapy, stable. Respiratory acidosis-improved. Physical deconditioning Pulmonary hypertension Volume overload-resolved. Plan: He is better respiratory kearns. His breathing is much improved. We will continue breathing treatment. Pulmonary consultation recommendations noted. We will follow closely. Continue diuresis for volume management. Continue to administer physical therapy as tolerated. Plans for LTAC placement on discharge from hospital in pipeline.
[2021-12-25] MEDS: RIVAROXABAN 20 MG TABLET PO SCH (17:50)
[2021-12-25] MEDS: ACETAMINOPHEN 500 MG TAB PO PRN (17:53)
[2021-12-25] MEDS: ATORVASTATIN 40 MG TAB PO SCH (20:43)
[2021-12-25] MEDS: ZOLPIDEM TARTRATE 10 MG TABLET PO PRN (20:47)
--- NOTE | 2021-12-25 22:54 | PN ---
Date of Progress Note: 12/25/2021 Chief Complaint: Acute kidney injury secondary to ischemic ATN and cardiorenal syndrome in setting o f rapid atrial fibrillation with hypotension and acute kidney injury was nonoliguric. Subjective: The patient did not require dialysis. Baseline creatinine level back in November 2020 was ranging from 0.8 to 1.0. Renal function has improved. The patient is on treatment for CHF exacerbat ion and he has acute on chronic diastolic congestive heart failure. BNP significantly is elevated. Creatinine level is stable. The patient is on Lasix and Aldactone. Review of Systems: Denies fever or chills. Physical Examination: Lungs: Few rhonchi. Heart: S1, S2. Abdomen: Soft, benign. Extremities: Some edema present. Impression And Plan: 1.Acute kidney injury secondary to acute tubular necrosis and cardiorenal syndrome. Continue diuret ic for volume control and treatment of congestive heart failure. 2.Respiratory acidosis secondary to chronic obstructive pulmonary disease exacerbation. The patient will continue diuretic and he may benefit from Diamox for metabolic alkalosis secondary to Lasix. 3.Acute on chronic diastolic congestive heart failure. Adjust diuretic. Continue low-sodium diet. A CT scan of the chest in 2013 showed no evidence of pulmonary hypertension. Continue Lasix and spi ronolactone. The patient remains hypoxemic. Continue BiPAP. 4.Acute chronic obstructive pulmonary disease exacerbation. The patient has diastolic congestive he art failure. TTE on December 06, 2021 showed left ventricular ejection fraction of 70%, RVSP of 50 to 5 5 mmHg. Continue to monitor electrolytes. Continue diuretic. Continue inhaled steroids. Monitor B TEA BLENDER. 5.Atrial fibrillation with rapid ventricular response. Monitor heart rate. ISMA/PARVEEN Voice ID: [id number] Report ID: [id number]
[2021-12-26] MEDS: IPRATROPIUM BROM 0.5MG/2.5ML NEB SCH ×4 (02:26→19:35)
[2021-12-26 06:29] LABS: BUN Blood Urea Nitrogen 25 mg/dL (7-18); Bicarbonate 39 mmol/L (21-32); Glucose Level 119 mg/dL (74-106); Magnesium 2.2 mg/dL (1.8-2.4); Phosphorus 3.9 mg/dL (2.5-4.9); Potassium 3.6 mmol/L (3.5-5.1); Sodium Level 140 mmol/L (136-145)
[2021-12-26] MEDS: ARFORMOTEROL TARTRATE 15 MCG/2 ML VIAL.NEB NEB SCH ×2 (08:22→19:35)
[2021-12-26] MEDS ORDERED: POTASSIUM CL SA 10 MEQ TAB PO ONE (09:00)
[2021-12-26] MEDS: predniSONE 10 MG TAB PO SCH ×2 (09:50→21:06)
[2021-12-26] MEDS: MUPIROCIN 2% OINT 22GM TUBE TOP SCH ×2 (09:50→21:00)
[2021-12-26] MEDS: FUROSEMIDE 40 MG TABLET PO SCH (09:50)
[2021-12-26] MEDS: SPIRONOLACTONE 25 MG TABLET PO SCH (09:50)
[2021-12-26] MEDS: METOPROLOL TAR 50 MG TAB PO SCH (09:50)
[2021-12-26] MEDS: PARoxetine HCL 10 MG TAB PO SCH (09:50)
--- NOTE | 2021-12-26 10:13 | P.PN ---
Subjective Date of Service: 12/26/21 Chief Complaint: Respiratory failure Subjective: No new changes, Improving Physical Examination - Vital Signs Temperature: 96.9 F Blood Pressure: 126/73 Pulse: 84 Respirations: 25 Pulse Ox (%): 88 - Physical Exam General: Alert, Oriented x3 HEENT: Atraumatic, Normocephalic Neck: Supple Respiratory: Normal air movement Cardiovascular: Regular rate/rhythm, Normal S1 S2 Gastrointestinal: Soft and benign Musculoskeletal: No swelling Neurological: Normal speech, Normal strength at 5/5 x4 extr - Studies Medications List Reviewed: Yes Assessment And Plan - Plan Morbid obesity Respiratory failure with hypoxia and hypercapnia requiring BiPAP therapy, stable. Respiratory acidosis-improved. Physical deconditioning Pulmonary hypertension Volume overload-resolved. Plan: He continues to improve as per resp symptoms. his oxygen requirements are better. we will continue to de-escalate therapy as tolerated. Pulmonary consultation recommendations noted. We will follow closely. Continue diuresis for volume management. Continue to administer physical therapy as tolerated. Plans for LTAC placement on discharge from hospital in pipeline.
[2021-12-26] MEDS: ACETAMINOPHEN 500 MG TAB PO PRN (10:36)
--- NOTE | 2021-12-26 15:24 | PN ---
Date of Progress Note: 12/26/2021 Subjective: The patient doing well. The patient was admitted with beer potomania, hyponatremia, hyp otension. The patient feeling better. Waiting for placement. Physical Examination: Vital Signs: Blood pressure 126/73, pulse of 84, afebrile. The patient had good urine output of voi ding. Chest: Clear to auscultation. Heart: S1, S2. Regular. Abdomen: Soft, nontender. Extremity: No edema. Neuro: Alert. No focality. The patient on 8 L of oxygen, maintaining good oxygenation. Laboratory Data: WBC 10.5, H and H 14.6/47.2. Sodium 140, potassium 3.6, bicarb 39, BUN 25, creatin ine 0.7, calcium 8.6, phosphorus 3.9, magnesium 2.2. Current Medications: The patient on include; 1.Spironolactone 50 mg. 2.Metoprolol. 3.Atorvastatin. 4.Geodon. 5.Ambien. 6.Lasix 80 daily. 7.Mupirocin. Assessment And Plan: 1.Acute kidney injury secondary to cardiorenal, recovered, resolved, currently normal volume. We wi ll continue current diuresis dose. 2.Hypokalemia. Continue spironolactone. We will continue to monitor. 3.Hypercapnic respiratory acidosis with compensation metabolic alkalosis, stable. Continue current treatment. 4.Respiratory failure as by Pulmonary. ENE/PARVEEN Voice ID: [id number] Report ID: [id number]
[2021-12-26] MEDS: RIVAROXABAN 20 MG TABLET PO SCH (16:54)
[2021-12-26] MEDS: ATORVASTATIN 40 MG TAB PO SCH (21:06)
[2021-12-26] MEDS: ZOLPIDEM TARTRATE 10 MG TABLET PO PRN (21:10)
[2021-12-27] MEDS: IPRATROPIUM BROM 0.5MG/2.5ML NEB SCH ×4 (01:30→19:30)
[2021-12-27 06:49] LABS: BUN Blood Urea Nitrogen 22 mg/dL (7-18); Bicarbonate 38 mmol/L (21-32); Glucose Level 138 mg/dL (74-106); Potassium 3.9 mmol/L (3.5-5.1); Sodium Level 137 mmol/L (136-145)
[2021-12-27] MEDS: ARFORMOTEROL TARTRATE 15 MCG/2 ML VIAL.NEB NEB SCH ×2 (07:30→19:30)
[2021-12-27] MEDS: predniSONE 10 MG TAB PO SCH ×3 (09:00→11:07)
[2021-12-27] MEDS ORDERED: POTASSIUM CL SA 10 MEQ TAB PO ONE (09:00)
[2021-12-27] MEDS: MUPIROCIN 2% OINT 22GM TUBE TOP SCH ×2 (09:00→20:42)
[2021-12-27] MEDS: PARoxetine HCL 10 MG TAB PO SCH (10:29)
[2021-12-27] MEDS: FUROSEMIDE 40 MG TABLET PO SCH (10:30)
[2021-12-27] MEDS: SPIRONOLACTONE 25 MG TABLET PO SCH (10:30)
[2021-12-27] MEDS: METOPROLOL TAR 50 MG TAB PO SCH (10:30)
[2021-12-27] MEDS: ACETAMINOPHEN 500 MG TAB PO PRN (12:27)
[2021-12-27] MEDS: ALBUTEROL 2.5 MG/3 ML NEB SOL NEB PRN (14:00)
--- NOTE | 2021-12-27 14:31 | RAD REPORT ---
EXAM DESCRIPTION: RAD - Chest Single View - 12/27/2021 2:23 pm CLINICAL HISTORY: COPD COMPARISON: Chest Single View dated 12/21/2021; Chest Single View dated 12/17/2021; Chest Single View da [place] 12/12/2021; Chest Single View dated 12/11/2021 FINDINGS: Lines: Right subclavian approach PICC. Lungs: Widespread pulmonary opacities are similar to 12/21/2021. Pleural: Pleural effusions bilaterally. Cardiac: Cardiomegaly. Bones: No acute fractures. Other: IMPRESSION: Similar aeration of the lungs bilaterally with presumed pulmonary edema and small effusi ons.
--- NOTE | 2021-12-27 15:44 | PN ---
Date of Progress Note: 12/27/2021 Subjective: The patient was admitted with respiratory failure, multifactorial, secondary to hypercap joe respiratory failure, cardiorenal. The patient was diuresed. The patient developed contraction a lkalosis secondary to over diuresis. The patient required a high flow, weaned from BiPAP, currently on nasal cannula, high concentration. The patient started on PT/OT, today with Physical Therapy deve loped sinus tachycardia. Physical Examination: Vital Signs: When I saw the patient; blood pressure 130/74, pulse of 91, afebrile. Chest: Clear to auscultation. Heart: S1, S2. Regular. Abdomen: Morbidly obese. Could not appreciate any organomegaly. Extremities: Venous stasis changes bilateral without any edema. Neurological: Alert, oriented x3. No focal. Laboratory Data: WBC 10.5, H and H 14.6/47.2. Sodium 137, potassium 3.9, bicarb 38, BUN 22, creatin ine 0.7, calcium 8.5. Last ABG back on the ; pH 7.43, O2 49, CO2 57. Current Medications: The patient on include breathing treatment, Xarelto, Atorvastatin, metoprolol 5 0 daily, spironolactone 50 daily, Paxil, Ambien, Lasix 80, Zofran, prednisone, KCl. Assessment And Plan: 1.Acute kidney injury secondary to cardiorenal, looked to me on the normal volume side. I am going to go ahead and get chest x-ray for better evaluation of his fluid status. I am going to continue cu rrent diuresis including Lasix 80 mg and spironolactone of 50 mg daily and we will follow up the ledy ent. 2.Hypertension, controlled, optimal. Continue current medication. 3.Hypokalemia. Response to spironolactone and oral supplement. We will continue. 4.Contraction alkalosis secondary to diuresis, stable, currently all decompensation secondary to hyp ercapnic respiratory failure. 5.Respiratory failure, multifactorial, secondary to chronic obstructive pulmonary disease exacerbati on/cardiorenal. Continue current diuresis. We will follow up with Pulmonary. 6.Deconditioning. Continue PT/OT. MA/MODL Voice ID: [id number] Report ID: [id number]
[2021-12-27] MEDS: RIVAROXABAN 20 MG TABLET PO SCH (17:54)
[2021-12-27] MEDS: ZOLPIDEM TARTRATE 10 MG TABLET PO PRN (20:44)
[2021-12-27] MEDS: ATORVASTATIN 40 MG TAB PO SCH (20:44)
[2021-12-28] MEDS: IPRATROPIUM BROM 0.5MG/2.5ML NEB SCH ×4 (01:20→20:00)
[2021-12-28 06:00] LABS: BUN Blood Urea Nitrogen 22 mg/dL (7-18); Bicarbonate 38 mmol/L (21-32); Glucose Level 127 mg/dL (74-106); Potassium 3.6 mmol/L (3.5-5.1); Sodium Level 140 mmol/L (136-145)
[2021-12-28] MEDS: ARFORMOTEROL TARTRATE 15 MCG/2 ML VIAL.NEB NEB SCH ×2 (06:04→20:00)
[2021-12-28] MEDS: PARoxetine HCL 10 MG TAB PO SCH (08:44)
[2021-12-28] MEDS: FUROSEMIDE 40 MG TABLET PO SCH (08:46)
[2021-12-28] MEDS: METOPROLOL TAR 50 MG TAB PO SCH (08:48)
[2021-12-28] MEDS: predniSONE 10 MG TAB PO SCH (08:48)
[2021-12-28] MEDS: SPIRONOLACTONE 25 MG TABLET PO SCH (08:49)
[2021-12-28] MEDS: ACETAMINOPHEN 500 MG TAB PO PRN (08:55)
[2021-12-28] MEDS ORDERED: POTASSIUM CL SA 10 MEQ TAB PO ONE (09:00)
[2021-12-28] MEDS: MUPIROCIN 2% OINT 22GM TUBE TOP SCH ×2 (09:00→21:00)
--- NOTE | 2021-12-28 13:35 | P.PN ---
Subjective Date of Service: 12/27/21 Chief Complaint: Respiratory failure Subjective: No new changes, Improving Physical Examination - Vital Signs Temperature: 97.2 F Blood Pressure: 104/68 Pulse: 104 Respirations: 20 Pulse Ox (%): 98 - Physical Exam General: Alert, Oriented x3 HEENT: Atraumatic, Normocephalic Neck: Supple Respiratory: Normal air movement Cardiovascular: Regular rate/rhythm, Normal S1 S2 Gastrointestinal: Soft and benign Neurological: Normal speech - Studies Medications List Reviewed: Yes Assessment And Plan - Plan Morbid obesity Respiratory failure with hypoxia and hypercapnia requiring BiPAP therapy, stable. Respiratory acidosis-improved. Physical deconditioning Pulmonary hypertension Volume overload-resolved. Plan: He continues to improve as per resp symptoms. his oxygen requirements are better. we will continue to de-escalate therapy as tolerated. Pulmonary consultation recommendations noted. We will follow closely. Continue diuresis for volume management. Continue to administer physical therapy as tolerated. Plans for LTAC placement on discharge from hospital in pipeline.
--- NOTE | 2021-12-28 13:36 | P.PN ---
Subjective Date of Service: 12/28/21 Chief Complaint: Respiratory failure Subjective: No new changes, Improving Physical Examination - Vital Signs Temperature: 97.2 F Blood Pressure: 104/68 Pulse: 104 Respirations: 20 Pulse Ox (%): 98 - Physical Exam General: Alert HEENT: Atraumatic, Normocephalic Neck: Supple Respiratory: Normal air movement Cardiovascular: Regular rate/rhythm, Normal S1 S2 Gastrointestinal: Soft and benign Musculoskeletal: No swelling Neurological: Normal speech - Studies Medications List Reviewed: Yes Assessment And Plan - Plan Morbid obesity Respiratory failure with hypoxia and hypercapnia requiring BiPAP therapy, stable. Respiratory acidosis-improved. Physical deconditioning Pulmonary hypertension Volume overload-resolved. Plan: He continues to improve with less oxygen requirement. He is now saturating 93% on oxygen by nasal cannula at 12 L/min. We will follow closely. Continue diuresis for volume management. Continue to administer physical therapy as tolerated. He had issues with insurance approval yesterday. We will follow up closely as approval process has been started. Plans for LTAC placement on discharge from hospital in pipeline.
--- NOTE | 2021-12-28 15:06 | PN ---
Date of Progress Note: 12/28/2021 Subjective: The patient was admitted with respiratory failure secondary to COPD exacerbation, cardiorenal. The patient has been diuresed. Had acute kidney injury secondary to cardiorenal, responding very well. Currently, kidney function back to normal. The patient had required high FiO2. Physical Examination: Vital Signs: Blood pressure 113/85, pulse of 98, afebrile. The patient is voiding. Chest: Clear to auscultation. Heart: S1, S2. Regular. Abdomen: Morbidly obese. Could not appreciate any organomegaly. Extremities: Venous stasis change. Trace edema. Neurological: Alert, oriented x3. No focal. Laboratory Data: WBC 10.5, H and H 14.6/47.2. Sodium 140, potassium 3.6, bicarb 38, BUN 22, creatinine 0.6, calcium 8.7. Current Medications: The patient on include; 1. Breathing treatment. 2. Xarelto. 3. Atorvastatin 40. 4. Metoprolol. 5. Spironolactone 50. 6. Ambien. 7. Lasix 80 daily. 8. Prednisone 10 mg. Assessment And Plan: 1. Acute kidney injury secondary to cardiorenal, recovered, resolved, currently normal volume, supported with chest x-ray. I am going to continue current diuresis dose. 2. Hypokalemia. The patient on spironolactone. I am going to go ahead and supplement again and we will monitor the patient. 3. Hypertension, controlled, optimal. Continue current treatment. The patient had Lasix and spironolactone for better volume control. We will continue. 4. Respiratory failure secondary to cardiorenal/hypercapnic respiratory failure. Follow up with Pulmonary. Continue current diuresis. 5. Alkalosis secondary to composition of hypercapnic respiratory acidosis, stable. Continue current diuresis. MA/MODL Voice ID: [id number] Report ID: [id number] CASEY
[2021-12-28] MEDS: RIVAROXABAN 20 MG TABLET PO SCH (17:20)
[2021-12-28] MEDS: ATORVASTATIN 40 MG TAB PO SCH (22:01)
[2021-12-28] MEDS: ZOLPIDEM TARTRATE 10 MG TABLET PO PRN (22:01)
[2021-12-29] MEDS: IPRATROPIUM BROM 0.5MG/2.5ML NEB SCH ×4 (01:39→19:35)
[2021-12-29 06:08] LABS: BUN Blood Urea Nitrogen 22 mg/dL (7-18); Bicarbonate 38 mmol/L (21-32); Glucose Level 118 mg/dL (74-106); Phosphorus 3.7 mg/dL (2.5-4.9); Potassium 3.5 mmol/L (3.5-5.1); Sodium Level 140 mmol/L (136-145)
[2021-12-29] MEDS: ARFORMOTEROL TARTRATE 15 MCG/2 ML VIAL.NEB NEB SCH ×2 (07:52→19:35)
--- NOTE | 2021-12-29 08:04 | P.PN ---
Subjective Date of Service: 12/29/21 Chief Complaint: Respiratory failure Subjective: No new changes (Remains bedridden.) Physical Examination - Vital Signs Temperature: 97.5 F Blood Pressure: 121/75 Pulse: 85 Respirations: 18 Pulse Ox (%): 92 - Physical Exam General: Other (appears chronically ill) HEENT: Atraumatic, Normocephalic Neck: Supple Respiratory: Other (symmetric chest expansion) Cardiovascular: No rubs, No murmurs Gastrointestinal: Soft and benign Musculoskeletal: Swelling (BLE) Integumentary: No warmth Neurological: Normal speech, Normal tone Urinary: Other (no bladder distention) External genitalia: Deferred Rectal: Deferred - Studies Medications List Reviewed: Yes Assessment And Plan - Plan # TARIK 2/2 ischemic ATN 2/2 CRS1 in the setting of rapid afib w/ hypotension TARIK resolved, SCr 0.7 Baseline serum creatinine 0.8-1.0 as of November 2020 [place] po fluid intake # Acute respi acidosis 2/2 COPD exacerbation + rapid afib +/- acute on chronic diastolic CHF BNP significantly elevated Chest CT in 2013 showed no evidence of pulmonary hypertension Continue lasix + basilio On O2 suppl # Metabolic alkalosis Repeat ABG on 12/22 showed combined metab alk + mild respi alk HCO3 38 Most recent bld gas pH close to normal, hold off on diamox # Acute exacerbation of COPD TTE in January 2019 showed normal LVEF, left atrium dilated TTE on 12/08/21 showed LVEF 70%, small pericardial effusion, RVSP 50-55 mmHg Has chronic serum bicarb elevation 2/2 COPD Continue inhalers Received steroids BiPAP prn # Afib w/ RVR HR now better controlled # Htn BP at goal Cont current BP med regimen # Dispo Awaiting dc to LTAC
[2021-12-29] MEDS ORDERED: POTASSIUM CL SA 10 MEQ TAB PO ONE (09:00)
[2021-12-29] MEDS: SPIRONOLACTONE 25 MG TABLET PO SCH (09:16)
[2021-12-29] MEDS: FUROSEMIDE 40 MG TABLET PO SCH (09:16)
[2021-12-29] MEDS: PARoxetine HCL 10 MG TAB PO SCH (09:16)
[2021-12-29] MEDS: predniSONE 10 MG TAB PO SCH (09:16)
[2021-12-29] MEDS: METOPROLOL TAR 50 MG TAB PO SCH (09:17)
[2021-12-29] MEDS: MUPIROCIN 2% OINT 22GM TUBE TOP SCH ×2 (09:18→21:00)
[2021-12-29] MEDS: ACETAMINOPHEN 500 MG TAB PO PRN (09:21)
[2021-12-29] MEDS: POTASSIUM CL SA 10 MEQ TAB PO SCH (09:21)
--- NOTE | 2021-12-29 09:54 | P.PN ---
Subjective Date of Service: 12/29/21 Chief Complaint: Respiratory failure Subjective: No new changes, Improving Physical Examination - Vital Signs Temperature: 97.5 F Blood Pressure: 126/88 Pulse: 85 Respirations: 18 Pulse Ox (%): 92 - Physical Exam General: Alert, Oriented x3 HEENT: Atraumatic, Normocephalic Neck: Supple Respiratory: Normal air movement Cardiovascular: Regular rate/rhythm, Normal S1 S2 Gastrointestinal: Soft and benign Neurological: Normal speech - Studies Medications List Reviewed: Yes Assessment And Plan - Plan Morbid obesity Respiratory failure with hypoxia and hypercapnia requiring BiPAP therapy, stable. Respiratory acidosis-improved. Physical deconditioning Pulmonary hypertension Volume overload-resolved. Plan: He continues to improve with less oxygen requirement. He is now saturating 92% on oxygen by nasal cannula at 12 L/min. We will follow closely. Continue diuresis for volume management. Continue to administer physical therapy as tolerated. He had issues with insurance approval yesterday. We will follow up closely as approval process has been started. Plans for LTAC placement on discharge from hospital in [facility].
[2021-12-29] MEDS: RIVAROXABAN 20 MG TABLET PO SCH (17:09)
[2021-12-29] MEDS: ZOLPIDEM TARTRATE 10 MG TABLET PO PRN (23:43)
[2021-12-29] MEDS: ATORVASTATIN 40 MG TAB PO SCH (23:43)
[2021-12-30] MEDS: IPRATROPIUM BROM 0.5MG/2.5ML NEB SCH ×2 (01:10→07:59)
[2021-12-30 05:43] LABS: BUN Blood Urea Nitrogen 22 mg/dL (7-18); Bicarbonate 38 mmol/L (21-32); Glucose Level 116 mg/dL (74-106); Magnesium 1.9 mg/dL (1.8-2.4); Potassium 3.7 mmol/L (3.5-5.1); Sodium Level 139 mmol/L (136-145)
--- NOTE | 2021-12-30 07:31 | P.PN ---
Subjective Date of Service: 12/30/21 Chief Complaint: Respiratory failure Subjective: No new changes, Improving Physical Examination - Vital Signs Temperature: 97.5 F Blood Pressure: 121/75 Pulse: 85 Respirations: 18 Pulse Ox (%): 92 - Physical Exam General: Alert, Oriented x3 HEENT: Atraumatic, Normocephalic Neck: Supple Respiratory: Normal air movement Cardiovascular: Regular rate/rhythm, Normal S1 S2 Gastrointestinal: Soft and benign Musculoskeletal: No swelling Neurological: Normal speech - Studies Medications List Reviewed: Yes Assessment And Plan - Plan Morbid obesity Respiratory failure with hypoxia and hypercapnia requiring BiPAP therapy, stable. Respiratory acidosis-improved. Physical deconditioning Pulmonary hypertension Volume overload-resolved. Plan: He continues to improve with less oxygen requirement. He is now saturating 90-93% on oxygen by nasal cannula at 11-12 L/min. We will follow closely. Continue diuresis for volume management. Continue to administer physical therapy as tolerated. Plans for LTAC placement on discharge from hospital in [facility].
[2021-12-30] MEDS: POTASSIUM CL SA 10 MEQ TAB PO SCH (07:34)
[2021-12-30] MEDS: ARFORMOTEROL TARTRATE 15 MCG/2 ML VIAL.NEB NEB SCH ×2 (07:59→19:50)
[2021-12-30] MEDS: PARoxetine HCL 10 MG TAB PO SCH (08:46)
[2021-12-30] MEDS: METOPROLOL TAR 50 MG TAB PO SCH (08:46)
[2021-12-30] MEDS: FUROSEMIDE 40 MG TABLET PO SCH (08:46)
[2021-12-30] MEDS: SPIRONOLACTONE 25 MG TABLET PO SCH (08:46)
[2021-12-30] MEDS: predniSONE 10 MG TAB PO SCH (08:47)
[2021-12-30] MEDS: MUPIROCIN 2% OINT 22GM TUBE TOP SCH ×2 (08:47→20:16)
[2021-12-30] MEDS ORDERED: POTASSIUM CL SA 10 MEQ TAB PO ONE (09:00)
--- NOTE | 2021-12-30 10:15 | P.PN ---
Subjective Date of Service: 12/30/21 Chief Complaint: Respiratory failure Condition stable oxygenation improving on FiO2 55% Review of Systems Respiratory: Shortness of Breath Physical Examination - Vital Signs Temperature: 97.5 F Blood Pressure: 121/75 Pulse: 85 Respirations: 18 Pulse Ox (%): 92 - Physical Exam General: Alert, In no apparent distress, Oriented x3 Respiratory: Clear to auscultation bilaterally, Diminished Cardiovascular: Normal S1 S2, Edema - Studies Medications List Reviewed: Yes Assessment And Plan - Current Problems (Diagnosis) (1) Respiratory failure with hypoxia and hypercapnia Current Visit: Yes Status: Acute Plan: Respiratory failure Qualifiers: Chronicity: acute on chronic Qualified Code(s): J96.21 - Acute and chronic respiratory failure with hypoxia; J96.22 - Acute and chronic respiratory failure with hypercapnia - Plan Condition is stable awaiting transfer to an LTAC l oxygenation improving 50% FiO2 continue with Brovana DC ipratropium albuterol as needed continue with diuretic continue with low-dose prednisone stable for transfer to an LTAC
--- NOTE | 2021-12-30 16:09 | PN ---
Date of Progress Note: 12/30/2021 Subjective: The patient doing well. No event. The patient was admitted with respiratory failure se condary to cardiorenal and hypercapnic respiratory failure. The patient required to maintain on high -flow. Physical Examination: Vital Signs: Blood pressure 121/75, pulse of 85, afebrile. The patient had good urine output voidin g. Chest: Decreased entry bilateral base. Heart: S1, S2, regular. Abdomen: Morbidly obese. Could not appreciate any organomegaly. Extremities: Venous stasis change bilateral. Laboratory Data: WBC 10.5, H and H 14.6/47.2. Sodium 139, potassium 3.7, bicarb 38, BUN 22, creatin ine 0.5. Calcium 8.6, phosphorus 4, magnesium 1.9. Assessment And Plan: 1.Acute kidney injury secondary to cardiorenal type 1, recovered back to base line, still on the ove r-volume side. Continue current diuresis. 2.Hypercapnic respiratory acidosis with metabolic alkalosis compensation. The pH is still stable. He is going to continue on current diuresis dose. 3.Respiratory failure secondary to cardiorenal and COPD exacerbation as by Pulmonary, continue curre nt diuresis dose. 4.Hypertension, controlled optimal, continue current treatment. 5.Hypokalemia, stable. Continue spironolactone. Current Medications: Include: 1.Breathing treatment. 2.Xarelto. 3.Metoprolol. 4.Spironolactone 50 daily. 5.Ambien. 6.Paxil. 7.Lasix 80 daily. 8.Mupirocin. ENE/PARVEEN Voice ID: [id number] Report ID: [id number]
[2021-12-30] MEDS: RIVAROXABAN 20 MG TABLET PO SCH (17:03)
[2021-12-30] MEDS: ZOLPIDEM TARTRATE 10 MG TABLET PO PRN (20:16)
[2021-12-30] MEDS: ATORVASTATIN 40 MG TAB PO SCH (20:16)
[2021-12-31 07:21] LABS: BUN Blood Urea Nitrogen 22 mg/dL (7-18); Glucose Level 122 mg/dL (74-106); Magnesium 1.9 mg/dL (1.8-2.4); Potassium 3.8 mmol/L (3.5-5.1); Sodium Level 141 mmol/L (136-145)
[2021-12-31 07:24] LABS: Bicarbonate 41 mmol/L (21-32)
[2021-12-31] MEDS: ARFORMOTEROL TARTRATE 15 MCG/2 ML VIAL.NEB NEB SCH ×2 (08:03→19:50)
[2021-12-31] MEDS: MUPIROCIN 2% OINT 22GM TUBE TOP SCH ×2 (09:00→20:23)
[2021-12-31] MEDS: METOPROLOL TAR 50 MG TAB PO SCH (09:01)
[2021-12-31] MEDS: POTASSIUM CL SA 10 MEQ TAB PO SCH (09:01)
[2021-12-31] MEDS: FUROSEMIDE 40 MG TABLET PO SCH (09:02)
[2021-12-31] MEDS: predniSONE 10 MG TAB PO SCH (09:02)
[2021-12-31] MEDS: PARoxetine HCL 10 MG TAB PO SCH (09:02)
[2021-12-31] MEDS: SPIRONOLACTONE 25 MG TABLET PO SCH (09:02)
--- NOTE | 2021-12-31 10:44 | P.PN ---
Subjective Date of Service: 12/31/21 Chief Complaint: Respiratory failure Subjective: No new changes Physical Examination - Vital Signs Temperature: 96.7 F Blood Pressure: 116/66 Pulse: 91 Respirations: 20 Pulse Ox (%): 97 - Physical Exam General: Alert, Oriented x3 HEENT: Atraumatic, Normocephalic Neck: Supple Respiratory: Normal air movement Cardiovascular: Regular rate/rhythm, Normal S1 S2 Gastrointestinal: Soft and benign Musculoskeletal: No swelling Neurological: Normal speech - Studies Medications List Reviewed: Yes Assessment And Plan - Plan Morbid obesity Respiratory failure with hypoxia and hypercapnia requiring BiPAP therapy at night, stable. Respiratory acidosis-improved. Physical deconditioning Pulmonary hypertension Volume overload-resolved. Plan: He continues to improve with less oxygen requirement. He is now saturating slightly less this am. we will continue on oxygen by nasal cannula at 11-12 L/min. We will follow closely. Continue diuresis for volume management. Continue to administer physical therapy as tolerated. Plans for LTAC placement on discharge from hospital in pipeline.
[2021-12-31] MEDS ORDERED: MECLIZINE HCL 12.5 MG TAB PO ONE (11:00)
--- NOTE | 2021-12-31 12:07 | PN ---
Date of Progress Note: 12/31/2021 Subjective: The patient was admitted with respiratory failure secondary to cardiorenal. The patient was diuresed. Has also acute kidney injury secondary to cardiorenal. The patient recovered. The p atient did not require any intubation, but today, the patient complaining from dizziness with changin g head position. Physical Examination: Vital Signs: Blood pressure 116/66, pulse of 91, afebrile. Chest: Decreased entry bilateral base. Heart: S1, S2. Regular. Abdomen: Morbidly obese. Could not appreciate any organomegaly. Extremity: Trace edema, venous stasis change with pigmentation. Neurologic: Alert. No focality. Laboratory Data: WBC 10.5, H and H 14.6/47.2. Sodium 141, potassium 3.8, bicarb 41, BUN 22, creatin ine 0.6, calcium 8.9, magnesium 1.9. Current Medications: The patient is on include; 1.Xarelto. 2.Atorvastatin. 3.Metoprolol. 4.Aldactone. 5.Ambien. 6.Lasix 80 daily. 7.Zofran. 8.Prednisone. Assessment And Plan: 1.Acute kidney injury secondary to prerenal, cardiorenal, recovered, resolved. I am going to contin ue current diuresis. 2.Hypertension, controlled, optimal. Continue current treatment. 3.Contraction alkalosis/hypercapnic respiratory acidosis with compensation of metabolic alkalosis, s table. 4.Respiratory failure secondary to cardiorenal, chronic obstructive pulmonary disease exacerbation a s by Pulmonary. Continue diuresis. ENE/MODL Voice ID: [id number] Report ID: [id number]
--- NOTE | 2021-12-31 12:16 | PN ---
Date of Progress Note: 12/31/2021 Subjective: The patient was admitted with abdominal pain. The patient was found to have severe constipation, peritonitis has been ruled out. Physical Examination: Vital Signs: When I saw the patient; blood pressure 116/66, pulse of 91, afebrile. The patient had voiding. Chest: Clear to auscultation. Heart: S1, S2. Regular. Systolic murmur. Abdomen: Soft, nontender. PD catheter, clean exit site. Extremities: No edema. Neurologic: Alert. No focality. Laboratory Data: WBC 10.5, H and H 14.6/47.2. Sodium 141, potassium 3.8, bicarb 41. Current Medications: The patient on include; 1. Albuterol. 2. Xarelto. 3. Atorvastatin. 4. Metoprolol 50. 5. Spironolactone. 6. Ambien. 7. Lasix 80 daily. 8. Zofran. 9. Prednisone 10 daily. Assessment And Plan: 1. Acute kidney injury secondary to cardiorenal, recovered, resolved. Continue current diuresis dose. 2. Hypertension, controlled, optimal. 3. Hypokalemia. Continue spironolactone. 4. Respiratory failure, hypercapnic respiratory failure. Follow up with Pulmonary. 5. Alkalosis secondary to hypercapnic respiratory failure, respiratory acidosis. Good compensation. We will continue current treatment. Time spent examining the patient, [id number] communicating with the patient and family, discussing the case with the nursing staff, reviewing the data including lab and radiology, placing order 35 minutes ENE/PARVEEN Voice ID: [id number] Report ID: [id number] [facility]
[2021-12-31] MEDS: RIVAROXABAN 20 MG TABLET PO SCH (17:17)
[2021-12-31] MEDS ORDERED: ARFORMOTEROL TARTRATE 15 MCG/2 ML VIAL.NEB ONE (19:50)
[2021-12-31] MEDS: ATORVASTATIN 40 MG TAB PO SCH (20:23)
[2021-12-31] MEDS: ZOLPIDEM TARTRATE 10 MG TABLET PO PRN (20:23)
[2022-01-01] MEDS: ARFORMOTEROL TARTRATE 15 MCG/2 ML VIAL.NEB NEB SCH ×2 (08:50→20:10)
[2022-01-01 08:53] LABS: BUN Blood Urea Nitrogen 19 mg/dL (7-18); Glucose Level 120 mg/dL (74-106); Potassium 3.9 mmol/L (3.5-5.1); Sodium Level 140 mmol/L (136-145)
[2022-01-01 08:54] LABS: Bicarbonate 42 mmol/L (21-32)
[2022-01-01] MEDS: MUPIROCIN 2% OINT 22GM TUBE TOP SCH ×2 (09:00→20:28)
[2022-01-01] MEDS: SPIRONOLACTONE 25 MG TABLET PO SCH (10:12)
[2022-01-01] MEDS: METOPROLOL TAR 50 MG TAB PO SCH (10:13)
[2022-01-01] MEDS: PARoxetine HCL 10 MG TAB PO SCH (10:13)
[2022-01-01] MEDS: FUROSEMIDE 40 MG TABLET PO SCH (10:13)
[2022-01-01] MEDS: POTASSIUM CL SA 10 MEQ TAB PO SCH (10:13)
[2022-01-01] MEDS: predniSONE 10 MG TAB PO SCH (10:14)
--- NOTE | 2022-01-01 14:04 | P.PN ---
Subjective Date of Service: 01/01/22 Chief Complaint: Respiratory failure Subjective: No new changes Physical Examination - Vital Signs Temperature: 97.1 F Blood Pressure: 122/68 Pulse: 85 Respirations: 20 Pulse Ox (%): 86 - Physical Exam General: Mild distress HEENT: Atraumatic, Normocephalic Neck: Supple Respiratory: Other (symmetric chest expansion) Cardiovascular: No rubs, No murmurs Gastrointestinal: Soft and benign, No guarding Integumentary: No warmth Neurological: Normal speech, Normal tone Urinary: Other (no bladder distention) External genitalia: Deferred Rectal: Deferred - Studies Medications List Reviewed: Yes Assessment And Plan - Plan # TARIK 2/2 ischemic ATN 2/2 CRS1 in the setting of rapid afib w/ hypotension TARIK resolved, SCr 0.6 Baseline serum creatinine 0.8-1.0 as of November 2020 [place] po fluid intake # Acute respi acidosis 2/2 COPD exacerbation + rapid afib +/- acute on chronic diastolic CHF BNP significantly elevated Chest CT in 2013 showed no evidence of pulmonary hypertension Continue lasix + basilio On O2 suppl # Metabolic alkalosis Repeat ABG on 01/01 showed normal pH HCO3 38-42 No need for diamox for now # Acute exacerbation of COPD TTE in January 2019 showed normal LVEF, left atrium dilated TTE on 12/08/21 showed LVEF 70%, small pericardial effusion, RVSP 50-55 mmHg Has chronic serum bicarb elevation 2/2 COPD Continue inhalers Received steroids BiPAP prn # Afib w/ RVR HR now better controlled # Htn BP at goal Cont current BP med regimen # Dispo Awaiting dc to LTAC
[2022-01-01] MEDS: RIVAROXABAN 20 MG TABLET PO SCH (17:01)
[2022-01-01 17:07] LABS: Arterial Blood Carboxyhemoglob 1.4 % (0-1.5); Blood Gas Oxyhemoglobin 91.9 % (94-97); Blood O2 Saturation 94.2 % (92-98.5)
[2022-01-01] MEDS: ZOLPIDEM TARTRATE 10 MG TABLET PO PRN (20:27)
[2022-01-01] MEDS: ATORVASTATIN 40 MG TAB PO SCH (20:27)
--- NOTE | 2022-01-02 05:51 | P.PN ---
Subjective Date of Service: 01/02/22 Chief Complaint: Respiratory failure Subjective: No new changes Physical Examination - Vital Signs Temperature: 97 F Blood Pressure: 102/73 Pulse: 88 Respirations: 19 Pulse Ox (%): 95 - Physical Exam General: Other (Appears as his stated age) HEENT: Atraumatic, Normocephalic Neck: Supple, JVD not distended Respiratory: Other (symmetric chest expansion) Cardiovascular: No rubs, No murmurs Gastrointestinal: Soft and benign, No guarding Musculoskeletal: No clubbing Integumentary: No warmth Neurological: Normal speech, Normal tone Lymphatics: No axilla or inguinal lymphadenopathy Urinary: Other (No bladder distention) External genitalia: Deferred Rectal: Deferred - Studies Medications List Reviewed: Yes Assessment And Plan - Plan # TARIK 2/2 ischemic ATN 2/2 CRS1 in the setting of rapid afib w/ hypotension TARIK resolved, SCr 0.6-0.7 Baseline serum creatinine 0.8-1.0 as of November 2020 [place] po fluid intake # Acute respi acidosis 2/2 COPD exacerbation + rapid afib +/- acute on chronic diastolic CHF BNP significantly elevated Chest CT in 2013 showed no evidence of pulmonary hypertension Continue lasix + basilio same dose [place] po fluid intake On O2 suppl # Metabolic alkalosis Repeat ABG on 01/01 showed normal pH HCO3 38-42 No need for diamox for now # Acute exacerbation of COPD TTE in January 2019 showed normal LVEF, left atrium dilated TTE on 12/08/21 showed LVEF 70%, small pericardial effusion, RVSP 50-55 mmHg Has chronic serum bicarb elevation 2/2 COPD Continue inhalers Received steroids BiPAP prn # Afib w/ RVR HR now better controlled # Htn BP at goal Cont current BP med regimen # Dispo Awaiting dc to LTAC
[2022-01-02 06:46] LABS: BUN Blood Urea Nitrogen 21 mg/dL (7-18); Glucose Level 118 mg/dL (74-106); Potassium 3.9 mmol/L (3.5-5.1); Sodium Level 140 mmol/L (136-145)
[2022-01-02 06:52] LABS: Bicarbonate 41 mmol/L (21-32)
[2022-01-02] MEDS: ARFORMOTEROL TARTRATE 15 MCG/2 ML VIAL.NEB NEB SCH ×2 (07:36→19:50)
[2022-01-02] MEDS: SPIRONOLACTONE 25 MG TABLET PO SCH (08:17)
[2022-01-02] MEDS: POTASSIUM CL SA 10 MEQ TAB PO SCH (08:18)
[2022-01-02] MEDS: predniSONE 10 MG TAB PO SCH (08:18)
[2022-01-02] MEDS: FUROSEMIDE 40 MG TABLET PO SCH (08:19)
[2022-01-02] MEDS: PARoxetine HCL 10 MG TAB PO SCH (08:20)
[2022-01-02] MEDS: METOPROLOL TAR 50 MG TAB PO SCH (08:20)
[2022-01-02] MEDS: MUPIROCIN 2% OINT 22GM TUBE TOP SCH ×2 (09:00→21:00)
[2022-01-02] MEDS: RIVAROXABAN 20 MG TABLET PO SCH (16:04)
[2022-01-02] MEDS: ALBUTEROL 2.5 MG/3 ML NEB SOL NEB PRN (19:50)
[2022-01-02] MEDS: ATORVASTATIN 40 MG TAB PO SCH (20:16)
[2022-01-03] MEDS: ARFORMOTEROL TARTRATE 15 MCG/2 ML VIAL.NEB NEB SCH (08:42)
[2022-01-03] MEDS: MUPIROCIN 2% OINT 22GM TUBE TOP SCH ×2 (09:00→21:06)
[2022-01-03] MEDS: predniSONE 10 MG TAB PO SCH (09:19)
[2022-01-03] MEDS: FUROSEMIDE 40 MG TABLET PO SCH (09:19)
[2022-01-03] MEDS: SPIRONOLACTONE 25 MG TABLET PO SCH (09:19)
[2022-01-03] MEDS: PARoxetine HCL 10 MG TAB PO SCH (09:19)
[2022-01-03] MEDS: POTASSIUM CL SA 10 MEQ TAB PO SCH (09:19)
[2022-01-03] MEDS: METOPROLOL TAR 50 MG TAB PO SCH (09:20)
--- NOTE | 2022-01-03 12:39 | P.PN ---
Subjective Date of Service: 01/03/22 Chief Complaint: Respiratory failure Condition stable bicarb elevated Review of Systems Respiratory: Shortness of Breath Physical Examination - Vital Signs Temperature: 97.0 F Blood Pressure: 112/76 Pulse: 82 Respirations: 20 Pulse Ox (%): 97 - Physical Exam General: Alert, Oriented x3 Respiratory: Clear to auscultation bilaterally, Diminished Cardiovascular: Regular rate/rhythm, Edema - Studies Medications List Reviewed: Yes Assessment And Plan - Current Problems (Diagnosis) (1) Respiratory failure with hypoxia and hypercapnia Current Visit: Yes Status: Acute Plan: Respiratory failure Qualifiers: Chronicity: acute on chronic Qualified Code(s): J96.21 - Acute and chronic respiratory failure with hypoxia; J96.22 - Acute and chronic respiratory failure with hypercapnia - Plan Respiratory failure changed to Dulera reduce dose of Lasix add Diamox labs and meds reviewed condition steadily improving he is on about 9 L of nasal cannula oxygen satisfactory sat
--- NOTE | 2022-01-03 13:02 | PN ---
Date of Progress Note: 01/03/2022 Subjective: The patient was admitted with acute kidney injury, respiratory failure. The patient did not require any intubation, did not require any dialysis. The patient treated, recovered his acute kidney injury secondary to cardiorenal. Physical Examination: Vital Signs: Blood pressure 112/76, pulse of 82, afebrile. The patient still has good urine output, voiding. Chest: Clear to auscultation. Heart: S1, S2. Regular. Abdomen: Morbidly obese. Could not appreciate any organomegaly. Extremities: Venous stasis change bilateral. Laboratory Data: WBC 10.5, H and H 14.6/47.2. Sodium 140, potassium 3.9, bicarb 41, BUN 21, creatinine 0.6, calcium 8.8, magnesium 1.9, phosphorus of 4. Current Medications: The patient on include; 1. Albuterol. 2. Xarelto. 3. Atorvastatin. 4. Metoprolol 50. 5. Spironolactone. 6. Ambien. 7. Lasix 80 daily. 8. Zofran. 9. Prednisone 10 daily. Assessment And Plan: 1. Acute kidney injury secondary to cardiorenal, recovered, resolved. Continue current diuresis dose. 2. Hypertension, controlled, optimal. 3. Hypokalemia. Continue spironolactone. 4. Respiratory failure, hypercapnic respiratory failure. Follow up with Pulmonary. 5. Alkalosis secondary to hypercapnic respiratory failure, respiratory acidosis. Good compensation. We will continue current treatment. Time spent examining the patient, [id number] communicating with the patient and family, discussing the case with the nursing staff, reviewing the data including lab and radiology, placing order 35 minutes AMINA Voice ID: [id number] Report ID: [id number] CASEY
[2022-01-03] MEDS: RIVAROXABAN 20 MG TABLET PO SCH (16:40)
[2022-01-03] MEDS: ALBUTEROL 2.5 MG/3 ML NEB SOL NEB PRN (20:25)
[2022-01-03] MEDS: acetaZOLAMIDE 250 MG TAB PO SCH (21:01)
[2022-01-03] MEDS: ATORVASTATIN 40 MG TAB PO SCH (21:01)
[2022-01-03] MEDS: ZOLPIDEM TARTRATE 5 MG TABLET PO PRN (21:01)
[2022-01-03] MEDS: TRAMADOL HCL 50 MG TAB PO PRN (21:02)
[2022-01-03] MEDS: DULERA 200/5 (MOMETASONE/FORMOTEROL) INHALER IH SCH (21:06)
[2022-01-04] MEDS: SPIRONOLACTONE 25 MG TABLET PO SCH (09:00)
[2022-01-04] MEDS: FUROSEMIDE 40 MG TABLET PO SCH (09:00)
[2022-01-04] MEDS: METOPROLOL TAR 50 MG TAB PO SCH (09:00)
[2022-01-04] MEDS ORDERED: METOPROLOL TAR 50 MG TAB PO SCH (09:11)
[2022-01-04] MEDS: PARoxetine HCL 10 MG TAB PO SCH (09:41)
[2022-01-04] MEDS: predniSONE 10 MG TAB PO SCH (09:42)
[2022-01-04] MEDS: acetaZOLAMIDE 250 MG TAB PO SCH ×2 (09:42→20:28)
[2022-01-04] MEDS: POTASSIUM CL SA 10 MEQ TAB PO SCH (09:42)
[2022-01-04] MEDS: MUPIROCIN 2% OINT 22GM TUBE TOP SCH ×2 (09:43→20:28)
[2022-01-04] MEDS: DULERA 200/5 (MOMETASONE/FORMOTEROL) INHALER IH SCH ×2 (09:43→20:28)
[2022-01-04] MEDS ORDERED: HYDROCORTISONE SUC 100 MG INJ IV ONE (12:07)
--- NOTE | 2022-01-04 12:36 | PN ---
Date of Progress Note: 01/04/2022 Subjective: The patient was admitted with respiratory failure secondary to hypercapnic respiratory f ailure, COPD, obstructive sleep apnea, and cardiorenal. The patient had acute kidney injury, treated , recovered. Kidney function has been normalized. Physical Examination: Vital Signs: When I saw the patient; blood pressure of 95/55, pulse of 94, afebrile. The patient st ill had good urine output. Today, the patient up to the chair, started walking few steps. Chest: Decreased entry bilateral base. Heart: S1, S2. Regular. Abdomen: Morbidly obese. Could not appreciate any organomegaly. Extremity: Venous stasis change bilaterally. Trace edema. Neurological: Alert, oriented x3. No focal. Laboratory Data: WBC 10.5, H and H 14.6/47.2. Sodium 140, potassium 3.9, bicarb 41, BUN 21, creatin ine 0.6, calcium 8.8. Current Medications: The patient on include Xarelto, breathing treatment, atorvastatin, metoprolol 5 0 daily, spironolactone 50, Tylenol, Ambien, Lasix 40 daily, acetazolamide 125, Zofran, and tramadol. Assessment And Plan: 1.Acute kidney injury secondary to cardiorenal, normalized, looked to me on the normal volume side. Continue current diuresis dose. Lasix has been decreased to 40 mg and initiated on acetazolamide by Pulmonary. We will follow up. 2.Hypertension, currently blood pressure on the lower side. I am going to go ahead and decrease his metoprolol to 25 mg and we will follow up the patient. 3.Alkalosis, metabolic, secondary to hypercapnic respiratory acidosis. Good compensation. Again, t he patient was started on acetazolamide. We will follow up with Pulmonary. 4.Chronic obstructive pulmonary disease exacerbation as by Pulmonary. 5.Deconditioning. Continue PT/OT. MA/MODL Voice ID: [id number] Report ID: [id number]
[2022-01-04] MEDS: RIVAROXABAN 20 MG TABLET PO SCH (16:26)
[2022-01-04] MEDS: ZOLPIDEM TARTRATE 5 MG TABLET PO PRN (20:29)
[2022-01-04] MEDS: ATORVASTATIN 40 MG TAB PO SCH (20:29)
[2022-01-04] MEDS: TRAMADOL HCL 50 MG TAB PO PRN (20:29)
[2022-01-05 06:16] LABS: Absolute Lymphocytes (CBC) 0.7 K/uL (0.7-4.9); Lymphocytes % 13.4 % (15.3-44.8); MPV 8.7 fL (7.6-11.3); RBC Red Blood Cell Count 4.94 M/uL (4.33-5.43)
[2022-01-05 06:19] LABS: BUN Blood Urea Nitrogen 17 mg/dL (7-18); Bicarbonate 40 mmol/L (21-32); Glucose Level 102 mg/dL (74-106); Potassium 3.5 mmol/L (3.5-5.1); Sodium Level 138 mmol/L (136-145)
--- NOTE | 2022-01-05 07:05 | P.PN ---
Date of Service: 01/01/22 Subjective Improving Review of Systems 10-point ROS is otherwise unremarkable Physical Examination - Vital Signs reviewed - Physical Exam General: Patient more lethargic and confused., Obese Respiratory: Clear bilaterally Cardiovascular: Regular rate/rhythm, Normal S1 S2 Gastrointestinal: Normal bowel sounds, Soft and benign, Non-distended, No tenderness Musculoskeletal: No clubbing, No tenderness, Swelling Neurological: No focal deficits Assessment & Plan - Problems (Diagnosis) (1) AMS Onset Date: 12/10/2021 Current Visit: No Status: Acute (2) CHF (congestive heart failure)/Atrial fibrillation with rapid ventricular response Onset Date: 05/18/16 Current Visit: No Status: Acute (3) COPD exacerbation Onset Date: 06/01/16 Current Visit: No Status: Acute (4) Respiratory failure Current Visit: No Status: Acute Qualifiers: Chronicity: acute on chronic (5) Diastolic CHF Onset Date: 05/28/16 Current Visit: No Status: Chronic Qualifiers: Qualified Code(s): I50.32 - Chronic diastolic (congestive) heart failure - Plan Continue with plan of care as mentioned below: 1. Continue with albuterol and Atrovent nebs; Brovana every 12 2. Change to oral steroids and taper 3. Continue with diuretics 4. Echocardiogram with moderate pulmonary hypertension 5. BiPAP support at night; weaned down to 8L 6. GI and DVT prophylaxis - Advance Directives Does patient have a Living Will: No Does patient have a Durable POA for Healthcare: No - Code Status/Comfort Care Code Status: Full Code
--- NOTE | 2022-01-05 07:06 | P.PN ---
Date of Service: 01/02/22 Subjective We will try to encourage the patient to get out of bed. Oxygen requirements are decreasing Review of Systems 10-point ROS is otherwise unremarkable Physical Examination - Vital Signs reviewed - Physical Exam General: Patient more lethargic and confused., Obese Respiratory: Clear bilaterally Cardiovascular: Regular rate/rhythm, Normal S1 S2 Gastrointestinal: Normal bowel sounds, Soft and benign, Non-distended, No tenderness Musculoskeletal: No clubbing, No tenderness, Swelling Neurological: No focal deficits Assessment & Plan - Problems (Diagnosis) (1) AMS Onset Date: 12/10/2021 Current Visit: No Status: Acute (2) CHF (congestive heart failure)/Atrial fibrillation with rapid ventricular response Onset Date: 05/18/16 Current Visit: No Status: Acute (3) COPD exacerbation Onset Date: 06/01/16 Current Visit: No Status: Acute (4) Respiratory failure Current Visit: No Status: Acute Qualifiers: Chronicity: acute on chronic (5) Diastolic CHF Onset Date: 05/28/16 Current Visit: No Status: Chronic Qualifiers: Qualified Code(s): I50.32 - Chronic diastolic (congestive) heart failure - Plan Continue with plan of care as mentioned below: 1. Continue with albuterol and Atrovent nebs; Brovana every 12 2. Taper oral steroids 3. Continue with oral diuretics 4. Echocardiogram with moderate pulmonary hypertension 5. BiPAP support at night; weaned down to 8L 6. GI and DVT prophylaxis - Advance Directives Does patient have a Living Will: No Does patient have a Durable POA for Healthcare: No - Code Status/Comfort Care Code Status: Full Code
--- NOTE | 2022-01-05 07:07 | P.PN ---
Date of Service: 01/03/22 Subjective Patient working with physical therapy. We will get out of bed and ambulate. Working on discharge planning. Pain in the left knee Review of Systems 10-point ROS is otherwise unremarkable Physical Examination - Vital Signs reviewed - Physical Exam General: Patient more lethargic and confused., Obese Respiratory: Clear bilaterally Cardiovascular: Regular rate/rhythm, Normal S1 S2 Gastrointestinal: Normal bowel sounds, Soft and benign, Non-distended, No tenderness Musculoskeletal: No clubbing, tenderness on palpation of the left knee Neurological: No focal deficits Assessment & Plan - Problems (Diagnosis) (1) AMS Onset Date: 12/10/2021 Current Visit: No Status: Acute (2) CHF (congestive heart failure)/Atrial fibrillation with rapid ventricular response Onset Date: 05/18/16 Current Visit: No Status: Acute (3) COPD exacerbation Onset Date: 06/01/16 Current Visit: No Status: Acute (4) Respiratory failure Current Visit: No Status: Acute Qualifiers: Chronicity: acute on chronic (5) Diastolic CHF Onset Date: 05/28/16 Current Visit: No Status: Chronic Qualifiers: Qualified Code(s): I50.32 - Chronic diastolic (congestive) heart failure - Plan Continue with plan of care as mentioned below: 1. Continue with albuterol and Atrovent nebs; Brovana every 12 2. Taper oral steroids 3. Continue with oral diuretics 4. Echocardiogram with moderate pulmonary hypertension 5. BiPAP support at night; weaned down to 8L 6. GI and DVT prophylaxis - Advance Directives Does patient have a Living Will: No Does patient have a Durable POA for Healthcare: No - Code Status/Comfort Care Code Status: Full Code
--- NOTE | 2022-01-05 07:13 | P.PN ---
Date of Service: 01/04/22 Subjective Patient got out of bed and ambulated. Clinically he appears to be doing well. Review of Systems 10-point ROS is otherwise unremarkable Physical Examination - Vital Signs reviewed - Physical Exam General: Patient more lethargic and confused., Obese Respiratory: Clear bilaterally Cardiovascular: Regular rate/rhythm, Normal S1 S2 Gastrointestinal: Normal bowel sounds, Soft and benign, Non-distended, No tenderness Musculoskeletal: No clubbing, tenderness on palpation of the left knee Neurological: No focal deficits Assessment & Plan - Problems (Diagnosis) (1) AMS Onset Date: 12/10/2021 Current Visit: No Status: Acute (2) CHF (congestive heart failure)/Atrial fibrillation with rapid ventricular response Onset Date: 05/18/16 Current Visit: No Status: Acute (3) COPD exacerbation Onset Date: 06/01/16 Current Visit: No Status: Acute (4) Respiratory failure Current Visit: No Status: Acute Qualifiers: Chronicity: acute on chronic (5) Diastolic CHF Onset Date: 05/28/16 Current Visit: No Status: Chronic Qualifiers: Qualified Code(s): I50.32 - Chronic diastolic (congestive) heart failure - Plan Continue with plan of care as mentioned below: 1. Continue with albuterol and Atrovent nebs; Brovana every 12 2. Taper oral steroids 3. Continue with oral diuretics 4. Echocardiogram with moderate pulmonary hypertension 5. BiPAP support at night; weaned down to 8L 6. GI and DVT prophylaxis - Advance Directives Does patient have a Living Will: No Does patient have a Durable POA for Healthcare: No - Code Status/Comfort Care Code Status: Full Code
--- NOTE | 2022-01-05 07:14 | P.PN ---
Date of Service: 01/05/22 Subjective More aggressively wean down O2 requirements Review of Systems 10-point ROS is otherwise unremarkable Physical Examination - Vital Signs reviewed - Physical Exam General: Patient more lethargic and confused., Obese Respiratory: Clear bilaterally Cardiovascular: Regular rate/rhythm, Normal S1 S2 Gastrointestinal: Normal bowel sounds, Soft and benign, Non-distended, No tenderness Musculoskeletal: No clubbing, tenderness on palpation of the left knee Neurological: No focal deficits Assessment & Plan - Problems (Diagnosis) (1) AMS Onset Date: 12/10/2021 Current Visit: No Status: Acute (2) CHF (congestive heart failure)/Atrial fibrillation with rapid ventricular response Onset Date: 05/18/16 Current Visit: No Status: Acute (3) COPD exacerbation Onset Date: 06/01/16 Current Visit: No Status: Acute (4) Respiratory failure Current Visit: No Status: Acute Qualifiers: Chronicity: acute on chronic (5) Diastolic CHF Onset Date: 05/28/16 Current Visit: No Status: Chronic Qualifiers: Qualified Code(s): I50.32 - Chronic diastolic (congestive) heart failure - Plan Continue with plan of care as mentioned below: 1. Continue with albuterol and Atrovent nebs; Brovana every 12 2. Taper oral steroids 3. Continue with oral diuretics 4. Echocardiogram with moderate pulmonary hypertension 5. BiPAP support at night; weaned down to 8L 6. GI and DVT prophylaxis - Advance Directives Does patient have a Living Will: No Does patient have a Durable POA for Healthcare: No - Code Status/Comfort Care Code Status: Full Code
[2022-01-05] MEDS ORDERED: POTASSIUM CL SA 10 MEQ TAB PO ONE (09:00)
[2022-01-05] MEDS: MUPIROCIN 2% OINT 22GM TUBE TOP SCH ×2 (09:00→22:44)
[2022-01-05] MEDS: DULERA 200/5 (MOMETASONE/FORMOTEROL) INHALER IH SCH ×2 (09:00→22:44)
[2022-01-05] MEDS ORDERED: METOPROLOL TAR 25 MG TAB PO SCH (09:00)
[2022-01-05 09:07] LABS: Platelet Estimate DECR; White Blood Cell Scan OK (OK)
[2022-01-05 09:09] LABS: Blood Morphology Comment NOTED (NOT SEEN)
[2022-01-05 09:13] LABS: Anisocytosis SLIGHT; Hypochromasia 1+
[2022-01-05] MEDS: POTASSIUM CL SA 10 MEQ TAB PO SCH (10:11)
[2022-01-05] MEDS: SPIRONOLACTONE 25 MG TABLET PO SCH (10:11)
[2022-01-05] MEDS: predniSONE 10 MG TAB PO SCH (10:12)
[2022-01-05] MEDS: FUROSEMIDE 40 MG TABLET PO SCH (10:12)
[2022-01-05] MEDS: acetaZOLAMIDE 250 MG TAB PO SCH ×2 (10:12→22:43)
[2022-01-05] MEDS: PARoxetine HCL 10 MG TAB PO SCH (10:12)
--- NOTE | 2022-01-05 14:13 | P.PN ---
Subjective Date of Service: 01/05/22 Chief Complaint: Respiratory failure Subjective: No new changes Physical Examination - Vital Signs Temperature: 96.5 F Blood Pressure: 114/70 Pulse: 86 Respirations: 20 Pulse Ox (%): 100 - Physical Exam General: Other (appears as his stated age) HEENT: Atraumatic, Normocephalic Neck: Supple, JVD not distended Respiratory: Other (symmetric chest expansion) Cardiovascular: No rubs, No murmurs Gastrointestinal: Soft and benign, No guarding Musculoskeletal: No clubbing Integumentary: No warmth Neurological: Normal speech, Normal tone Urinary: Other (no bladder distention) External genitalia: Deferred Rectal: Deferred - Studies Medications List Reviewed: Yes Assessment And Plan - Plan # TARIK 2/2 ischemic ATN 2/2 CRS1 in the setting of rapid afib w/ hypotension TARIK resolved, SCr now 0.5-0.7 Baseline serum creatinine 0.8-1.0 as of November 2020 [place] po fluid intake # Acute respi acidosis 2/2 COPD exacerbation + rapid afib +/- acute on chronic diastolic CHF BNP significantly elevated Chest CT in 2013 showed no evidence of pulmonary hypertension Continue lasix + basilio same dose [place] po fluid intake On O2 suppl # Metabolic alkalosis Repeat ABG on 01/01 showed normal pH HCO3 38-42 No need for diamox for now # Acute exacerbation of COPD TTE in January 2019 showed normal LVEF, left atrium dilated TTE on 12/08/21 showed LVEF 70%, small pericardial effusion, RVSP 50-55 mmHg Has chronic serum bicarb elevation 2/2 COPD Continue inhalers Received steroids BiPAP prn # Afib w/ RVR HR now better controlled # Htn BP at goal Cont current BP med regimen # Dispo Awaiting dc to [facility]
[2022-01-05] MEDS: RIVAROXABAN 20 MG TABLET PO SCH (18:08)
[2022-01-05 21:53] VITALS: O2SAT 95
[2022-01-05] MEDS: ATORVASTATIN 40 MG TAB PO SCH (22:43)
[2022-01-05] MEDS: TRAMADOL HCL 50 MG TAB PO PRN (22:43)
[2022-01-06 05:14] VITALS: BP 114/70; TEMP 96.5
== END 2022-01-06 00:05 | DRG 189 ==
LOC: ER 10:08 → ERHOLD 13:42 → 2ND 15:21 → 3RD-ICU 12-17 10:45 → 2ND 12-20 18:10
PROVIDERS: ADMIT Internal Medicine Nephrology; ATTEND Hospitalist
PROC: 5A09557 Assistance with Respiratory Ventilation, Greater than 96 Consecutive Hours, Continuous Positive Airway Pressure (ICD-10-PCS; principal; 2021-12-06)
PROC: 02HV33Z Insertion of Infusion Device into Superior Vena Cava, Percutaneous Approach (ICD-10-PCS; 2021-12-12)
DX: J96.21 Acute and chronic respiratory failure with hypoxia (principal); I50.33 Acute on chronic diastolic (congestive) heart failure; N17.0 Acute kidney failure with tubular necrosis; J44.1 Chronic obstructive pulmonary disease with (acute) exacerbation; Z68.42 Body mass index [BMI] 45.0-49.9, adult; E87.4 Mixed disorder of acid-base balance; E44.1 Mild protein-calorie malnutrition; I48.91 Unspecified atrial fibrillation; J96.22 Acute and chronic respiratory failure with hypercapnia; I11.0 Hypertensive heart disease with heart failure; E66.01 Morbid (severe) obesity due to excess calories; E78.5 Hyperlipidemia, unspecified; I95.9 Hypotension, unspecified; R60.1 Generalized edema; I87.8 Other specified disorders of veins; I27.20 Pulmonary hypertension, unspecified; E87.6 Hypokalemia; K59.00 Constipation, unspecified; F17.210 Nicotine dependence, cigarettes, uncomplicated
CPT/HCPCS: 36415; 36569; 71045; 76770; 80048; 80053; 80061; 81003; 81015; 82140; 82570; 82607; 82746; 82805; 83540; 83605; 83735; 83880; 84100; 84145; 84156; 84300; 84443; 85025; 85610; 85730; 87040; 87205; 93005; 93306; 94003; 94660; 94760; 97110; 97116; 97161; 97164; 97530; 99285; J1120; J1160; J1630; J1650; J1720; J1940; J2920; J2930; J3475; J3535; J7040; J7050; J7512; J7605; J8597; P9047; U0003

== ENCOUNTER 2022-01-30 11:56 | Inpatient (IN) | payer OTHER ==
--- NOTE | 2022-01-30 12:58 | RAD REPORT ---
EXAM DESCRIPTION: RAD - Chest Single View - 01/30/2022 12:52 pm CLINICAL HISTORY: Cough Chest pain. COMPARISON: Chest Single View dated 12/27/2021; Chest Single View dated 12/21/2021; Chest Single View d ated 12/17/2021; Chest Single View dated 12/12/2021 FINDINGS: Portable technique limits examination quality. The left lung is somewhat suboptimally visualized due to patient rotation. Mild interstitial pulmonar y edema is likely present. The heart is moderately enlarged in size. No displaced fractures.
[2022-01-30 13:13] LABS: Absolute Lymphocytes (CBC) 0.9 K/uL (0.7-4.9); Hematocrit 37.2 % (39.6-49.0); Lymphocytes % 9.8 % (15.3-44.8); MPV 8.6 fL (7.6-11.3)
[2022-01-30] MEDS ORDERED: NA CHLORIDE 0.9% 0 ML ONE (13:34)
[2022-01-30 13:38] LABS: Protime INR 1.35
[2022-01-30 13:57] LABS: Albumin 2.9 g/dL (3.4-5.0); Bilirubin Direct 0.2 mg/dL (0-0.2); Bilirubin Total 0.7 mg/dL (0.2-1.0); Magnesium 1.9 mg/dL (1.8-2.4); Potassium 3.9 mmol/L (3.5-5.1); Thyroid Stimulating Hormone 1.36 uIU/mL (0.360-3.740); Troponin High Sensitivity 14.3 pg/mL (<58.9)
[2022-01-30] MEDS ORDERED: DIGOXIN 0.25 MG/ML AMP ONE (14:36)
--- NOTE | 2022-01-30 14:49 | EDPHYS ---
Physician Documentation [facility] Name: Sean Hayden Age: 61 yrs Sex: Male : 1960 Arrival Date: 01/30/2022 Time: 12:01 Bed 13 Private MD: ED Physician Azael Baez HPI: 01/30 14:38 This 61 yrs old Male presents to ER via EMS with complaints of weakness and isabel palpitations. 14:38 The patient presents with a history of irregular heart beat, heart racing. Context: The isabel symptoms occur at rest. Onset: The symptoms/episode began/occurred 3 day(s) ago. Duration: The patient or guardian reports multiple episodes, that wax and wane. Modifying factors: The symptoms are aggravated by light activity, strenuous activity, The symptoms are alleviated by remaining still, rest. weakness and racing heart, hx of atrial fibrillation. The patient presents with dizziness, generalized weakness, lightheadedness. Context: occurred while the patient was getting up from bed. Modifying factors: The symptoms are alleviated by lying down, the symptoms are aggravated by standing up, changing position. Historical: - Allergies: 12:06 No Known Allergies; tw2 - Home Meds: 12:06 Xarelto 20 mg Oral tab 1 tab once daily [Active]; tramadol 50 mg Oral tab 1 tab every 8 tw2 hours as needed [Active]; ProAir HFA 90 mcg/actuation inhalation HFAA 1 puff every 6 hours [Active]; gabapentin 300 mg Oral cap 1 cap 3 times per day [Active]; metoprolol tartrate 50 mg Oral tab 1 tab once daily [Active]; paroxetine HCl 30 mg Oral tab 1 tab once daily [Active]; atorvastatin 40 mg Oral tab 1 tab once daily [Active]; amlodipine-benazepril 40-20 mg Oral cap 1 cap once daily [Active]; - PMHx: 12:06 CHF; Atrial Fib; COPD; Hyperlipidemia; Hypertension; tw2 - Immunization history:: Adult Immunizations. - Social history:: Smoking status: . - Family history:: not pertinent. ROS: 14:38 Constitutional: Negative for fever, chills, and weight loss, Eyes: Negative for injury, isabel pain, redness, and discharge, ENT: Negative for injury, pain, and discharge, Neck: Negative for injury, pain, and swelling, Respiratory: Negative for shortness of breath, cough, wheezing, and pleuritic chest pain, Abdomen/GI: Negative for abdominal pain, nausea, vomiting, diarrhea, and constipation, Back: Negative for injury and pain, : Negative for injury, bleeding, discharge, and swelling, MS/Extremity: Negative for injury and deformity, Skin: Negative for injury, rash, and discoloration, Neuro: Negative for headache, weakness, numbness, tingling, and seizure, Psych: Negative for depression, anxiety, suicide ideation, homicidal ideation, and hallucinations, Allergy/Immunology: Negative for hives, rash, and allergies, Endocrine: Negative for neck swelling, polydipsia, polyuria, polyphagia, and marked weight changes, Hematologic/Lymphatic: Negative for swollen nodes, abnormal bleeding, and unusual bruising. 14:38 Cardiovascular: Positive for palpitations. Exam: 14:41 Constitutional: This is a well developed, well nourished patient who is awake, alert, isabel and in no acute distress. Head/Face: Normocephalic, atraumatic. Eyes: Pupils equal round and reactive to light, extra-ocular motions intact. Lids and lashes normal. Conjunctiva and sclera are non-icteric and not injected. Cornea within normal limits. Periorbital areas with no swelling, redness, or edema. ENT: Nares patent. No nasal discharge, no septal abnormalities noted. Tympanic membranes are normal and external auditory canals are clear. Oropharynx with no redness, swelling, or masses, exudates, or evidence of obstruction, uvula midline. Mucous membranes moist. Neck: Trachea midline, no thyromegaly or masses palpated, and no cervical lymphadenopathy. Supple, full range of motion without nuchal rigidity, or vertebral point tenderness. No Meningismus. Chest/axilla: Normal chest wall appearance and motion. Nontender with no deformity. No lesions are appreciated. Respiratory: Lungs have equal breath sounds bilaterally, clear to auscultation and percussion. No rales, rhonchi or wheezes noted. No increased work of breathing, no retractions or nasal flaring. Abdomen/GI: Soft, non-tender, with normal bowel sounds. No distension or tympany. No guarding or rebound. No evidence of tenderness throughout. Back: No spinal tenderness. No costovertebral tenderness. Full range of motion. Male : Normal genitalia with no discharge or lesions. Skin: Warm, dry with normal turgor. Normal color with no rashes, no lesions, and no evidence of cellulitis. MS/ Extremity: Pulses equal, no cyanosis. Neurovascular intact. Full, normal range of motion. Neuro: Awake and alert, GCS 15, oriented to person, place, time, and situation. Cranial nerves II-XII grossly intact. Motor strength 5/5 in all extremities. Sensory grossly intact. Cerebellar exam normal. Normal gait. Psych: Awake, alert, with orientation to person, place and time. Behavior, mood, and affect are within normal limits. 14:41 Cardiovascular: Rate: tachycardic, Rhythm: irregularly irregular, Pulses: Pulses are 3+ in bilateral radial, brachial, femoral, popliteal, posterior tibial and and dorsalis pedis arteries.. Heart sounds: normal, Edema: is not appreciated, JVD: is not appreciated. 14:41 ECG was reviewed by the Attending Physician. 14:49 ECG was reviewed by the Attending Physician. isabel Vital Signs: 12:05 BP 147 / 129; Pulse 138; Resp 16; Temp 99(TE); Pulse Ox 96% on 4 lpm NC; Weight 149.69 tw2 kg; Pain 0/10; 12:09 BP 90 / 56; tw2 13:02 BP 91 / 58; Pulse 139; Resp 22; Pulse Ox 97% on 4 lpm NC; tw2 14:28 BP 81 / 60; Pulse 137; Resp 22; Pulse Ox 97% on 4 lpm NC; tw2 15:19 BP 102 / 66; Pulse 122; Resp 22; Pulse Ox 97% on R/A; tw2 16:16 BP 121 / 65; Pulse 105; Resp 21; Pulse Ox 98% on 4 lpm NC; tw2 17:15 BP 117 / 99; Pulse 117; Resp 20; Pulse Ox 98% on 4 lpm NC; tw2 18:15 BP 85 / 54; Pulse 110; Resp 18; Pulse Ox 97% on 4 lpm NC; tw2 MDM: 12:07 Patient medically screened. isabel 14:43 Differential diagnosis: arrythmia, dehydration. Differential diagnosis: cardiac isabel arrhythmia, generalized weakness, hypovolemia, idiopathic dizziness, near-syncope, vertigo. Data reviewed: vital signs, nurses notes, lab test result(s), EKG, radiologic studies, plain films. Data interpreted: color television console monitor: rate is 140 beats/min, rhythm is atrial fibrillation, Pulse oximetry: on room air is 97 %. Test interpretation: by ED physician or midlevel provider: ECG, plain radiologic studies. Counseling: I had a detailed discussion with the patient and/or guardian regarding: the historical points, exam findings, and any diagnostic results supporting the discharge/admit diagnosis, lab results, radiology results. 01/30 12:09 Order name: Basic Metabolic Panel; Complete Time: 14:23 [facility] 01/30 12:09 Order name: CBC with Diff; Complete Time: 14:23 [facility] 01/30 12:09 Order name: LFT's; Complete Time: 14:23 [facility] 01/30 12:09 Order name: Magnesium; Complete Time: 14:23 [facility] 01/30 12:09 Order name: NT PRO-BNP; Complete Time: 14:23 [facility] 01/30 12:09 Order name: PT-INR; Complete Time: 14:23 [facility] 01/30 12:09 Order name: Troponin HS; Complete Time: 14:23 [facility] 01/30 12:09 Order name: SARS-COV-2 RT PCR (Document "Date of Onset" if Symptomatic) [facility] 01/30 12:09 Order name: TSH; Complete Time: 14:23 [facility] 01/30 18:21 Order name: ABG Arterial Blood Gas [facility] 01/30 18:21 Order name: ABG Arterial Blood Gas [facility] 01/30 18:21 Order name: CBC with Automated Diff [facility] 01/30 18:21 Order name: CBC with Automated Diff [facility] 01/30 18:21 Order name: Comprehensive Metabolic Panel [facility] 01/30 12:09 Order name: XRAY Chest (1 view); Complete Time: 14:23 [facility] 01/30 12:09 Order name: EKG; Complete Time: 12:09 [facility] 01/30 12:09 Order name: Cardiac monitoring; Complete Time: 12:33 [facility] 01/30 14:25 Order name: Echo w/ Doppler [facility] 01/30 14:26 Order name: EKG: repeat; Complete Time: 14:27 [facility] 01/30 18:21 Order name: Heart Healthy [facility] 01/30 18:21 Order name: Comprehensive Metabolic Panel [facility] 01/30 18:21 Order name: Lipid Profile [facility] 01/30 18:21 Order name: Lipid Profile [facility] 01/30 18:21 Order name: Magnesium [facility] 01/30 18:21 Order name: Magnesium [facility] 01/30 18:21 Order name: NT PRO-BNP [facility] 01/30 18:21 Order name: NT PRO-BNP [facility] 01/30 12:09 Order name: IV Saline Lock; Complete Time: 13:34 isabel 01/30 12:09 Order name: Labs collected and sent; Complete Time: 13:34 [place] 01/30 12:09 Order name: O2 Per Protocol; Complete Time: 12:33 [place] 01/30 12:09 Order name: O2 Sat Monitoring; Complete Time: 12:33 [place] 01/30 13:22 Order name: Labs - recollect needed: recollect all labs; Complete Time: 13:25 01/30 14:26 Order name: EKG - Nurse/Tech; Complete Time: 14:44 isabel EC:41 Rate is 110 beats/min. Rhythm is irregularly irregular. QRS [place] is Normal. [place] interval isabel is normal. QRS interval is normal. QT interval is normal. No Q waves. T waves are Normal. No ST changes noted. Clinical impression: Atrial Fibrillation. Interpreted by me. Reviewed by me. 14:49 Rate is 130 beats/min. Rhythm is irregularly irregular. QRS [place] is Normal. [place] interval isabel is normal. QRS interval is normal. QT interval is normal. No Q waves. T waves are Normal. No ST changes noted. Clinical impression: Atrial Fibrillation. Interpreted by me. Reviewed by me. Administered Medications: 13:33 Drug: NS 0.9% 1000 ml Route: IV; Rate: 75 ml/hr; Site: right antecubital; tw2 14:38 Drug: Digoxin 0.5 mg Route: IVP; Site: right antecubital; tw2 15:19 Drug: NS 0.9% 500 ml {Note: left thumb.} Route: IV; Rate: bolus; Site: Other; tw2 Disposition Summary: 01/30/22 14:49 Hospitalization Ordered Hospitalization Status: Inpatient Admission isabel Provider: Tess Munguia cha Location: Telemetry/MedSurg (Inpatient) isabel Condition: Fair isabel Problem: new isabel Symptoms: are unchanged isabel Bed/Room Type: Standard isabel Room Assignment: 203(01/30/22 20:09) cg Diagnosis - Weakness isabel - Chronic atrial fibrillation - with RVR isabel - Hypotension, unspecified isabel - Morbid (severe) obesity due to excess calories isabel Forms: - Medication Reconciliation Form isabel - SBAR form isabel Signatures: Dispatcher [employer] Jessica Shipley Corey, MD MD cha Garcia, Cindy RN RN cg Halina Marroquin RN RN tw2 Corrections: (The following items were deleted from the chart) : 14:49 isabel
--- NOTE | 2022-01-30 14:49 | ER ---
Nurse's Notes [facility] Name: Sean Hayden Age: 61 yrs Sex: Male : 1960 Arrival Date: 01/30/2022 Time: 12:01 Bed 13 Private MD: Diagnosis: Weakness;Chronic atrial fibrillation-with RVR;Hypotension, unspecified;Morbid (severe) obesity due to excess calories Presentation: 01/30 11:53 Chief complaint: EMS states: pt called us for tremors that started since yesterday. tw2 recently released from PT facility from recent falls. pt uses 4L nc o2 at home. Coronavirus screen: At this time, the client does not indicate any symptoms associated with coronavirus-19. Ebola Screen: Patient denies travel to an Ebola-affected area in the 21 days before illness onset. 11:53 Method Of Arrival: EMS: [facility] tw2 12:07 Initial Sepsis Screen: Does the patient meet any 2 criteria? HR > 90 bpm. No. Patient's tw2 initial sepsis screen is negative. Does the patient have a suspected source of infection? No. Patient's initial sepsis screen is negative. Risk Assessment: Do you want to hurt yourself or someone else? Patient reports no desire to harm self or others. Onset of symptoms was January 29, 2022. 12:07 Acuity: IHSAN 3 tw2 Triage Assessment: 12:05 General: Appears in no apparent distress. obese, unkempt, Behavior is calm, tw2 cooperative. Pain: Denies pain. Neuro: Level of Consciousness is awake, alert, obeys commands, Oriented to person, place, time, situation. Respiratory: Airway is patent Respiratory effort is even, unlabored, Respiratory pattern is regular, symmetrical. 12:05 GI: Abdomen is round obese. Derm: Skin is dry, Bruising that is pt states "i bruise tw2 easily". Musculoskeletal: Reports "i am weak from that facility i was in and i got these tremors since yesterday". Historical: - Allergies: 12:06 No Known Allergies; tw2 - Home Meds: 12:06 Xarelto 20 mg Oral tab 1 tab once daily [Active]; tramadol 50 mg Oral tab 1 tab every 8 tw2 hours as needed [Active]; ProAir HFA 90 mcg/actuation inhalation HFAA 1 puff every 6 hours [Active]; gabapentin 300 mg Oral cap 1 cap 3 times per day [Active]; metoprolol tartrate 50 mg Oral tab 1 tab once daily [Active]; paroxetine HCl 30 mg Oral tab 1 tab once daily [Active]; atorvastatin 40 mg Oral tab 1 tab once daily [Active]; amlodipine-benazepril 40-20 mg Oral cap 1 cap once daily [Active]; - PMHx: 12:06 CHF; Atrial Fib; COPD; Hyperlipidemia; Hypertension; tw2 - Immunization history:: Adult Immunizations. - Social history:: Smoking status: . - Family history:: not pertinent. Screenin:08 Abuse screen: Denies threats or abuse. Nutritional screening: No deficits noted. tw2 Tuberculosis screening: No symptoms or risk factors identified. Fall Risk Fall in past 12 months (25 points). Secondary diagnosis (15 points) impaired mobility. Assessment: 12:07 Reassessment: see triage assessment. tw2 13:03 Reassessment: Patient appears in no apparent distress at this time. Patient and/or tw2 family updated on plan of care and expected duration. Pain level reassessed. 15:20 Reassessment: Patient appears in no apparent distress at this time. Patient and/or tw2 family updated on plan of care and expected duration. Pain level reassessed. 16:16 Reassessment: Patient appears in no apparent distress at this time. Patient and/or tw2 family updated on plan of care and expected duration. Pain level reassessed. 17:15 Reassessment: Patient appears in no apparent distress at this time. Patient and/or tw2 family updated on plan of care and expected duration. Pain level reassessed. 18:15 Reassessment: Patient appears in no apparent distress at this time. Patient and/or tw2 family updated on plan of care and expected duration. Pain level reassessed. 19:04 Reassessment: Patient appears in no apparent distress at this time. Patient and/or tw2 family updated on plan of care and expected duration. Pain level reassessed. 21:36 Reassessment: Report given to med-surg floor nurse, Called to flip room , waiting on ke1 new armband. Vital Signs: 12:05 BP 147 / 129; Pulse 138; Resp 16; Temp 99(TE); Pulse Ox 96% on 4 lpm NC; Weight 149.69 tw2 kg; Pain 0/10; 12:09 BP 90 / 56; tw2 13:02 BP 91 / 58; Pulse 139; Resp 22; Pulse Ox 97% on 4 lpm NC; tw2 14:28 BP 81 / 60; Pulse 137; Resp 22; Pulse Ox 97% on 4 lpm NC; tw2 15:19 BP 102 / 66; Pulse 122; Resp 22; Pulse Ox 97% on R/A; tw2 16:16 BP 121 / 65; Pulse 105; Resp 21; Pulse Ox 98% on 4 lpm NC; tw2 17:15 BP 117 / 99; Pulse 117; Resp 20; Pulse Ox 98% on 4 lpm NC; tw2 18:15 BP 85 / 54; Pulse 110; Resp 18; Pulse Ox 97% on 4 lpm NC; tw2 ED Course: 12:00 Bed in low position. Call light in reach. Side rails up X2. Client placed on continuous tw2 cardiac and pulse oximetry monitoring. NIBP monitoring applied. phototypesetting equipment monitor on. Pulse ox on. 12:01 Patient arrived in ED. tw2 12:01 Halina Marroquin RN is Primary Nurse. tw2 12:05 Arm band placed on. tw2 12:07 Azael Baez MD is Attending Physician. isabel 12:08 Triage completed. tw2 12:53 XRAY Chest (1 view) In Process Unspecified. EDMS 13:20 Inserted saline lock: 20 gauge in right antecubital area, using aseptic technique. tw2 ,using aseptic technique. by ,Tech Blood collected. Missed attempt(s): 20 gauge in left antecubital area. Bleeding controlled, band aid applied, catheter tip intact. 14:46 Tess Munguia MD is Hospitalizing Provider. isabel 15:00 IV discontinued, intact, bleeding controlled, Pressure dressing applied, infiltration tw2 noted. 15:17 Inserted saline lock: 22 gauge in left ,using aseptic technique. thumb. tw2 19:05 Report given to GARY Silverio. tw2 19:11 Primary Nurse role handed off by Halina Marroquin RN mw2 19:33 Jean Claude Callejas RN is Primary Nurse. ke1 Administered Medications: 13:33 Drug: NS 0.9% 1000 ml Route: IV; Rate: 75 ml/hr; Site: right antecubital; tw2 14:38 Drug: Digoxin 0.5 mg Route: IVP; Site: right antecubital; tw2 15:19 Drug: NS 0.9% 500 ml {Note: left thumb.} Route: IV; Rate: bolus; Site: Other; tw2 Outcome: 14:49 Decision to Hospitalize by Provider. isabel 21:59 Admitted to Med/surg accompanied by tech. ke1 21:59 Condition: stable 21:59 Instructed on the need for admit. 22:00 Patient left the ED. ke1 Signatures: Dispatcher [employer] EDAzael Quesada MD MD cha Wise, Tara, RN RN tw2 Chad Pal mw2 Jean Claude Callejas RN RN ke1 Corrections: (The following items were deleted from the chart) 16:20 12:05 Respiratory: Airway is patent Respiratory effort is even, unlabored, Respiratory tw2 pattern is regular, symmetrical, tw2
[2022-01-30] MEDS ORDERED: NA CHLORIDE 0.9% 500 ML ONE (15:02)
[2022-01-30] MEDS ORDERED: ONDANSETRON 4 MG/2 ML VIAL IV PRN (18:17)
[2022-01-30] MEDS ORDERED: ACETAMINOPHEN 500 MG TAB PO PRN (18:17)
[2022-01-30] MEDS: NA CHLORIDE 0.9% 1,000 ML IV SCH (19:00)
[2022-01-30] MEDS: ALBUTEROL 2.5 MG/3 ML NEB SOL NEB SCH (20:00)
[2022-01-30] MEDS: IPRATROPIUM BROM 0.5MG/2.5ML NEB SCH (20:35)
[2022-01-30] MEDS ORDERED: IPRATROPIUM BROM 0.5MG/2.5ML ONE (20:35)
[2022-01-30] MEDS: CEFTRIAXONE 1,000 MG in NA CHLORIDE 0.9% 50 ML IVPB SCH (21:00)
[2022-01-30] MEDS ORDERED: NA CHLORIDE 0.9% 1,000 ML ONE (21:07)
[2022-01-30] MEDS ORDERED: NA CHLORIDE 0.9% 50 ML ONE (21:07)
[2022-01-30] MEDS ORDERED: CEFTRIAXONE 1000 MG/VIAL ONE (21:07)
[2022-01-30 22:17] VITALS: BMI 50.3
[2022-01-31] MEDS: ALBUTEROL 2.5 MG/3 ML NEB SOL NEB SCH ×4 (01:50→20:00)
[2022-01-31] MEDS: IPRATROPIUM BROM 0.5MG/2.5ML NEB SCH ×4 (01:50→20:00)
[2022-01-31] MEDS: NA CHLORIDE 0.9% 1,000 ML IV SCH ×2 (01:57→16:31)
[2022-01-31 05:57] LABS: Arterial Blood Carboxyhemoglob 1.4 % (0-1.5); Blood Gas Oxyhemoglobin 94.8 % (94-97); Blood O2 Saturation 97.1 % (92-98.5)
[2022-01-31 06:02] LABS: Absolute Lymphocytes (CBC) 0.7 K/uL (0.7-4.9); Lymphocytes % 8.5 % (15.3-44.8); MPV 8.5 fL (7.6-11.3); RBC Red Blood Cell Count 4.83 M/uL (4.33-5.43)
[2022-01-31 06:17] LABS: Albumin 2.7 g/dL (3.4-5.0); Bilirubin Total 0.7 mg/dL (0.2-1.0); Potassium 3.6 mmol/L (3.5-5.1); Protein, Total 5.7 g/dL (6.4-8.2)
[2022-01-31] MEDS: CEFTRIAXONE 1,000 MG in NA CHLORIDE 0.9% 50 ML IVPB SCH (08:34)
[2022-01-31] MEDS: ENOXAPARIN 40 MG/0.4 ML SQ SCH (08:34)
[2022-01-31 09:31] LABS: Blood Morphology Comment NOTED (NOT SEEN); Hypochromasia 1+; Ovalocytes 1+; Platelet Estimate DECR; White Blood Cell Scan OK (OK)
--- NOTE | 2022-01-31 15:25 | P.HP ---
Certification for Inpatient Patient admitted to: Inpatient With expected LOS: >2 Midnights Patient will require the following post-hospital care: None Practitioner: I am a practitioner with admitting privileges, knowledge of patient current condition, hospital course, and medical plan of care. Services: Services provided to patient in accordance with Admission requirements found in Title 42 Section 412.3 of the Code of Federal Regulations Patient History Date of Service: 01/30/22 Reason for admission: Shortness of breath History of Present Illness: Patient is a 61-year-old gentleman who came to the hospital with shortness of breath. Patient also stated that he had tremors. These have resolved. Patient was morbidly obese and has been in our hospital for an extended period of the last few months. Patient with hypercapnic respiratory failure. Patient has been working with physical therapy at the [facility]. We will need to get back up and start working with physical therapy again. He will be admitted for his respiratory distress and trying to improve his strength. Allergies No Known Allergies Allergy (Verified 01/30/22 22:34) Home Medications: Acetaminophen 650 mg PO Q6H PRN 01/31/22 Albuterol Sulfate [Albuterol Sulfate 0.083% Neb Soln] 2.5 mg IH Q6H PRN 01/31/22 Amlodipine Besylate [Norvasc] 10 mg PO DAILY 01/31/22 Arformoterol Tartrate 15 mcg IH BID 01/31/22 Atorvastatin Calcium 40 mg PO BEDTIME 01/31/22 Budesonide [Pulmicort] 1 puff IH BID 01/31/22 Furosemide [Lasix] 10 mg IJ DAILY 01/31/22 Lidocaine 4% Patch [Lidoderm 5% Patch] 1 patch TD DAILY 01/31/22 Lisinopril [Zestril] 10 mg PO DAILY 01/31/22 Loperamide [Imodium] 2 mg PO Q8H PRN 01/31/22 Melatonin 6 mg PO BEDTIME 01/31/22 Metoprolol Tartrate [Lopressor] 25 mg PO BID 01/31/22 Paroxetine HCl [Paxil] 20 mg PO DAILY 01/31/22 Potassium Chloride [Klor-Con M20] 20 meq PO DAILY 01/31/22 Rivaroxaban [Xarelto] 20 mg PO DAILY 01/31/22 Spironolactone 25 mg PO DAILY 01/31/22 acetaZOLAMIDE [Diamox] 250 mg PO BID 01/31/22 - Past Medical/Surgical History Has patient received pneumonia vaccine in the past: No Diabetic: No -: cancer of lips -: COPD -: CHF -: afib Past Surgical History: Patient denies surgical history - Family History Father Medical History: Lung disease, Other (see notes) Notes: COPD Mother Medical History: Lung disease - Social History Smoking Status: Former smoker Alcohol use: No CD- Drugs: No Caffeine use: No Place of Residence: Home Review of Systems 10-point ROS is otherwise unremarkable Physical Examination - Vital Signs Temperature: 98.5 F Blood Pressure: 119/59 Pulse: 115 Respirations: 25 Pulse Ox (%): 95 - Physical Exam General: Alert, In no apparent distress, Oriented x3 HEENT: Atraumatic, PERRLA, Mucous membr. moist/pink, EOMI, Sclerae nonicteric Neck: Supple, 2+ carotid pulse no bruit, No LAD, Without JVD or thyroid abnormality Respiratory: Diminished, Expiratory wheezes Cardiovascular: Regular rate/rhythm, Normal S1 S2, No murmurs Gastrointestinal: Normal bowel sounds, Soft and benign, Non-distended, No tenderness Musculoskeletal: No clubbing, No tenderness Integumentary: No rashes Neurological: Normal speech, Normal tone, Sensation intact, Cranial nerves 3-12 intact, Normal affect, Abnormal gait, Abnormal strength Lymphatics: No axilla or inguinal lymphadenopathy Assessment & Plan - Problems (Diagnosis) (1) COPD exacerbation Onset Date: 06/01/16 Current Visit: No Status: Acute (2) Tremor Current Visit: Yes Status: Acute (3) Respiratory failure with hypoxia and hypercapnia Current Visit: No Status: Acute Qualifiers: Chronicity: acute on chronic Qualified Code(s): J96.21 - Acute and chronic respiratory failure with hypoxia; J96.22 - Acute and chronic respiratory failure with hypercapnia (4) Ataxia Current Visit: Yes Status: Acute - Plan Plan: 1. Continue with albuterol and Atrovent nebs 2. Continue with IV steroids 3. Physical therapy 4. Pulmonary consultation if needed 5. Room air O2 sats 6. Repeat chest x-ray in the morning 7. Neurologically no significant abnormalities 8. GI and DVT prophylaxis Discharge Plan: Home Plan to discharge in: Greater than 2 days - Advance Directives Does patient have a Living Will: No Does patient have a Durable POA for Healthcare: No - Code Status/Comfort Care Code Status Assessed: Yes Code Status: Full Code Critical Care: No Time Spent Managing PTS Care (In Minutes): 45
[2022-02-01] MEDS: IPRATROPIUM BROM 0.5MG/2.5ML NEB SCH ×4 (01:35→19:55)
[2022-02-01] MEDS: ALBUTEROL 2.5 MG/3 ML NEB SOL NEB SCH ×4 (01:57→20:00)
[2022-02-01] MEDS ORDERED: DILTIAZEM HCL 125 MG/25 ML VIAL IVP ONE (04:00)
[2022-02-01] MEDS ORDERED: dilTIAZem HCL 25 MG/5 ML VIAL IV ONE (04:25)
[2022-02-01] MEDS: NA CHLORIDE 0.9% 1,000 ML IV SCH ×3 (04:40→21:17)
--- NOTE | 2022-02-01 07:44 | EKG ---
Test Date: 2022-01-30 Test Time: 14:36:26 Physician [facility]: [facility] MEASUREMENT RESULTS: Intervals: Rate: 130 MA: QRSD: 92 QT: 314 QTc: 462 [place]: P: MA: QRS: 26 T: 1 INTERPRETIVE STATEMENTS: Atrial fibrillation with rapid ventricular response Nonspecific ST abnormality Abnormal ECG Compared to ECG 01/30/2022 13:05:19 Possible ischemia no longer present ST (T wave) deviation still present Electronically Signed On 02-01-22 07:37:49 CDT by Kevin Harden
--- NOTE | 2022-02-01 07:45 | EKG ---
Test Date: 2022-01-30 Test Time: 13:05:19 Flotation Tender: SANDOVAL MEASUREMENT RESULTS: Intervals: Rate: 140 [place]: QRSD: 82 QT: 288 QTc: 439 [place]: P: AK: QRS: 37 T: 13 INTERPRETIVE STATEMENTS: Atrial fibrillation with rapid ventricular response ST & T wave abnormality, consider anterior ischemia Abnormal ECG Compared to ECG 12/06/2021 10:24:57 ST (T wave) deviation now present Possible ischemia now present Right superior axis no longer present Incomplete right bundle-branch block no longer present Right ventricular hypertrophy no longer present Myocardial infarct finding no longer present Electronically Signed On 02-01-22 07:37:55 CDT by Kevin Harden
--- NOTE | 2022-02-01 08:05 | ECHO ---
HEIGHT: 5 ft 9 in WEIGHT: 341 lb 1.6 oz DATE OF STUDY: 01/31/[address]: Azael Baez MD 2-DIMENSIONAL: YES M.MODE: YES DOPPLER: YES COLOR FLOW: YES TDS: NO PORTABLE: YES DEFINITY: NO BUBBLE STUDY: NO DIAGNOSIS: CONGESTIVE HEART FAILURE CARDIAC HISTORY: CATHERIZATION: NO SURGERY: NO PROSTHETIC VALVE: NO PACEMAKER: NO MEASUREMENTS (cm) DIASTOLIC (NORMALS) SYSTOLIC (NORMALS) IVSd 1.2 (0.6-1.2) LA Diam 3.0 (1.9-4.0) LVEF 62% LVIDd 5.3 (3.5-5.7) LVIDs 3.5 (2.0-3.5) %FS 34% LVPWd 1.3 (0.6-1.2) Ao Diam 2.8 (2.0-3.7) 2 DIMENSIONAL ASSESSMENT: RIGHT ATRIUM: NORMAL LEFT ATRIUM: NORMAL RIGHT VENTRICLE: NORMAL LEFT VENTRICLE: LEFT VENTRICULAR HYPERTROPHY TRICUSPID VALVE: NORMAL MITRAL VALVE: NORMAL PULMONIC VALVE: NORMAL AORTIC VALVE: NORMAL PERICARDIAL EFFUSION: NONE AORTIC ROOT: NORMAL LEFT VENTRICULAR WALL MOTION: DECREASED LEFT VENTRICULAR COMPLIANCE. DOPPLER/COLOR FLOW: DECREASED LEFT VENTRICULAR COMPLIANCE. COMMENTS: TECHNICALLY DIFFICULT STUDY. NORMAL EJECTION FRACTION. DIASTOLIC DYSFUNCTION. TECHNOLOGIST: ABRAM COLLINS
[2022-02-01] MEDS: levoFLOXacin 750 MG TAB PO SCH (08:21)
[2022-02-01] MEDS: ENOXAPARIN 40 MG/0.4 ML SQ SCH (08:22)
--- NOTE | 2022-02-01 08:39 | P.PN ---
Subjective Date of Service: 01/31/22 Subjective: No new changes, No C/O voiced, Improving Review of Systems 10-point ROS is otherwise unremarkable Physical Examination - Vital Signs Temperature: 98.5 F Blood Pressure: 119/59 Pulse: 115 Respirations: 25 Pulse Ox (%): 95 - Physical Exam General: Alert, In no apparent distress, Oriented x3 Respiratory: Diminished, Crackles/rales Cardiovascular: Regular rate/rhythm, Normal S1 S2, No murmurs Gastrointestinal: Normal bowel sounds, Soft and benign, Non-distended, No tenderness Musculoskeletal: No tenderness Integumentary: No rashes Neurological: Sensation intact, Cranial nerves 3-12 intact - Studies Medications List Reviewed: Yes Assessment & Plan - Problems (Diagnosis) (1) COPD exacerbation Onset Date: 06/01/16 Current Visit: No Status: Acute (2) Tremor Current Visit: Yes Status: Acute (3) Respiratory failure with hypoxia and hypercapnia Current Visit: No Status: Acute Qualifiers: Chronicity: acute on chronic Qualified Code(s): J96.21 - Acute and chronic respiratory failure with hypoxia; J96.22 - Acute and chronic respiratory failure with hypercapnia (4) Ataxia Current Visit: Yes Status: Acute - Plan Plan: 1. Continue with albuterol and Atrovent nebs 2. Continue with IV steroids 3. Physical therapy; patient needs to start working with physical therapy aggressively. 4. Pulmonary consultation if needed 5. Room air O2 sats 6. Repeat chest x-ray in the morning 7. Neurologically no significant abnormalities 8. GI and DVT prophylaxis Discharge Plan: Home Plan to discharge in: Greater than 2 days - Advance Directives Does patient have a Living Will: No Does patient have a Durable POA for Healthcare: No - Code Status/Comfort Care Code Status: Full Code Critical Care: No Time Spent Managing PTS Care (In Minutes): 35
--- NOTE | 2022-02-01 08:40 | P.PN ---
Date of Service: 02/01/22 Subjective Subjective: No new changes, No C/O voiced, Improving Review of Systems 10-point ROS is otherwise unremarkable Physical Examination - Vital Signs Reviewed - Physical Exam General: Alert, In no apparent distress, Oriented x3 Respiratory: Diminished, Crackles/rales Cardiovascular: Regular rate/rhythm, Normal S1 S2, No murmurs Gastrointestinal: Normal bowel sounds, Soft and benign, Non-distended, No tenderness Musculoskeletal: No tenderness Integumentary: No rashes Neurological: No focal deficits except for lower extremity weakness Assessment & Plan - Problems (Diagnosis) (1) COPD exacerbation Onset Date: 06/01/16 Current Visit: No Status: Acute (2) Tremor Current Visit: Yes Status: Acute (3) Respiratory failure with hypoxia and hypercapnia Current Visit: No Status: Acute Qualifiers: Chronicity: acute on chronic Qualified Code(s): J96.21 - Acute and chronic respiratory failure with hypoxia; J96.22 - Acute and chronic respiratory failure with hypercapnia (4) Ataxia Current Visit: Yes Status: Acute - Plan Continue with plan of care as mentioned below: 1. Continue with albuterol and Atrovent nebs 2. Continue with IV steroids 3. Physical therapy; patient needs to start working with physical therapy aggressively. 4. Pulmonary consultation if needed 5. Room air O2 sats 6. Repeat chest x-ray in the morning 7. Neurologically no significant abnormalities 8. GI and DVT prophylaxis Discharge Plan: Home Plan to discharge in: Greater than 2 days - Advance Directives Does patient have a Living Will: No Does patient have a Durable POA for Healthcare: No - Code Status/Comfort Care Code Status: Full Code Critical Care: No Time Spent Managing PTS Care (In Minutes): 35
[2022-02-01] MEDS ORDERED: LOPERAMIDE HCL 2 MG CAPSULE PO PRN (12:24)
[2022-02-01] MEDS ORDERED: ALBUTEROL 2.5 MG/3 ML NEB SOL IH PRN (12:24)
[2022-02-01] MEDS ORDERED: METOPROLOL TARTRATE 5 MG/5 ML INJ IV STA (12:27)
[2022-02-01] MEDS ORDERED: DILTIAZEM HCL 120 MG SR CAP PO ONE (13:00)
[2022-02-01] MEDS: ARFORMOTEROL TARTRATE 15 MCG/2 ML VIAL.NEB IH SCH (19:55)
[2022-02-01] MEDS ORDERED: BUDESONIDE 0.5 MG/2 ML NEB IH SCH (20:00)
[2022-02-01] MEDS: MELATONIN 3 MG TABLET PO SCH (21:16)
[2022-02-01] MEDS: acetaZOLAMIDE 250 MG TAB PO SCH (21:16)
[2022-02-01] MEDS: ATORVASTATIN 40 MG TAB PO SCH (21:16)
[2022-02-01] MEDS: METOPROLOL TAR 25 MG TAB PO SCH (21:16)
[2022-02-01] MEDS: ACETAMINOPHEN 325 MG TABLET PO PRN (23:53)
[2022-02-02] MEDS: NA CHLORIDE 0.9% 1,000 ML IV SCH ×2 (00:20→10:14)
[2022-02-02] MEDS: IPRATROPIUM BROM 0.5MG/2.5ML NEB SCH ×4 (01:55→20:20)
[2022-02-02] MEDS: ALBUTEROL 2.5 MG/3 ML NEB SOL NEB SCH ×4 (02:00→20:20)
[2022-02-02] MEDS: ARFORMOTEROL TARTRATE 15 MCG/2 ML VIAL.NEB IH SCH (08:18)
[2022-02-02] MEDS: SPIRONOLACTONE 25 MG TABLET PO SCH (09:00)
[2022-02-02] MEDS ORDERED: DILTIAZEM HCL 120 MG SR CAP PO SCH (09:00)
[2022-02-02] MEDS: PARoxetine HCL 10 MG TAB PO SCH (09:00)
[2022-02-02] MEDS ORDERED: AMLODIPINE 10 MG TAB PO SCH (09:00)
[2022-02-02] MEDS: METOPROLOL TAR 25 MG TAB PO SCH ×2 (09:00→20:57)
[2022-02-02] MEDS: POTASSIUM CL SA 10 MEQ TAB PO SCH (10:14)
[2022-02-02] MEDS: RIVAROXABAN 20 MG TABLET PO SCH (10:14)
[2022-02-02] MEDS: levoFLOXacin 750 MG TAB PO SCH (10:14)
[2022-02-02] MEDS: acetaZOLAMIDE 250 MG TAB PO SCH ×2 (10:14→20:55)
[2022-02-02] MEDS: LIDOCAINE 4% PATCH TD SCH (15:09)
[2022-02-02] MEDS ORDERED: ALBUMIN HUMAN 25% 100 ML IV ONE (16:00)
[2022-02-02] MEDS ORDERED: HYDROCORTISONE SUC 100 MG INJ IV ONE (16:00)
[2022-02-02] MEDS: ARFORMOTEROL TARTRATE 15 MCG/2 ML VIAL.NEB NEB SCH (20:20)
[2022-02-02] MEDS: MELATONIN 3 MG TABLET PO SCH (20:56)
[2022-02-02] MEDS: ATORVASTATIN 40 MG TAB PO SCH (20:56)
[2022-02-02] MEDS: ACETAMINOPHEN 325 MG TABLET PO PRN (20:57)
[2022-02-03] MEDS: IPRATROPIUM BROM 0.5MG/2.5ML NEB SCH ×2 (02:30→08:28)
[2022-02-03] MEDS: ALBUTEROL 2.5 MG/3 ML NEB SOL NEB SCH ×2 (02:30→08:28)
[2022-02-03] MEDS ORDERED: BUDESONIDE 0.5 MG/2 ML NEB NEB SCH (08:00)
[2022-02-03 08:13] VITALS: TEMP 97
[2022-02-03] MEDS: ARFORMOTEROL TARTRATE 15 MCG/2 ML VIAL.NEB NEB SCH (08:28)
[2022-02-03] MEDS ORDERED: DILTIAZEM HCL 120 MG SR CAP PO SCH (09:00)
[2022-02-03 09:04] VITALS: O2SAT 98
[2022-02-03] MEDS: POTASSIUM CL SA 10 MEQ TAB PO SCH (09:22)
[2022-02-03] MEDS: PARoxetine HCL 10 MG TAB PO SCH (09:22)
[2022-02-03] MEDS: levoFLOXacin 750 MG TAB PO SCH (09:22)
[2022-02-03] MEDS: acetaZOLAMIDE 250 MG TAB PO SCH (09:23)
[2022-02-03] MEDS: METOPROLOL TAR 25 MG TAB PO SCH (09:24)
[2022-02-03] MEDS: RIVAROXABAN 20 MG TABLET PO SCH (09:24)
[2022-02-03] MEDS: SPIRONOLACTONE 25 MG TABLET PO SCH (09:24)
[2022-02-03] MEDS: LIDOCAINE 4% PATCH TD SCH (09:25)
[2022-02-03 12:12] VITALS: BP 102/62
--- NOTE | 2022-02-25 00:01 | P.PN ---
Date of Service: 02/02/22 Subjective Subjective: Patient is doing better. Clinical symptoms continue to improve. Patient's respiratory status has improved as well. He will probably go home with his sister in the a.m.. Review of Systems 10-point ROS is otherwise unremarkable Physical Examination - Vital Signs Reviewed - Physical Exam General: Alert, In no apparent distress, Oriented x3 Respiratory: Minimal basilar crackles Cardiovascular: Regular rate/rhythm, Normal S1 S2, No murmurs Gastrointestinal: Normal bowel sounds, Soft and benign, Non-distended, No tenderness Neurological: No focal deficits except for lower extremity weakness Assessment & Plan - Problems (Diagnosis) (1) COPD exacerbation Onset Date: 06/01/16 Current Visit: No Status: Acute (2) Tremor Current Visit: Yes Status: Acute (3) Respiratory failure with hypoxia and hypercapnia Current Visit: No Status: Acute Qualifiers: Chronicity: acute on chronic Qualified Code(s): J96.21 - Acute and chronic respiratory failure with hypoxia; J96.22 - Acute and chronic respiratory failure with hypercapnia (4) Ataxia Current Visit: Yes Status: Acute - Plan Continue with plan of care as mentioned below: 1. Continue with albuterol and Atrovent nebs 2. Change to oral steroids 3. Physical therapy; patient needs to start working with physical therapy aggressively. 4. Pulmonary consultation if needed 5. Room air O2 sats 6. Repeat chest x-ray in the morning 7. Neurologically no significant abnormalities 8. GI and DVT prophylaxis
--- NOTE | 2022-02-25 00:02 | P.DS ---
Discharge Date: 02/03/22 Disposition: DC HOME/HOME HEALTH CARE Discharge Condition: GOOD Reason for Admission: Shortness of breath - Problems (1) COPD exacerbation Onset Date: 06/01/16 Status: Acute (2) Tremor Status: Acute (3) Respiratory failure with hypoxia and hypercapnia Status: Acute Qualifiers: Chronicity: acute on chronic Qualified Code(s): J96.21 - Acute and chronic respiratory failure with hypoxia; J96.22 - Acute and chronic respiratory failure with hypercapnia (4) Ataxia Status: Acute Brief History of Present Illness: Patient is a 61-year-old gentleman who came to the hospital with shortness of breath. Patient also stated that he had tremors. These have resolved. Patient was morbidly obese and has been in our hospital for an extended period of the last few months. Patient with hypercapnic respiratory failure. Patient has been working with physical therapy at the [facility]. We will need to get back up and start working with physical therapy again. He will be admitted for his respiratory distress and trying to improve his strength. Hospital Course: Patient is doing much better. Respiratory status is stable. We are continuing with nebs, oral steroids, and he will go home with antibiotics. He needs to follow up with Pulmonary to arrange for a BiPAP. At this time, patient is stable for discharge home. Vital Signs/Physical Exam: Temp Pulse Resp BP Pulse Ox 97.0 F 78 20 102/62 97 02/03/22 12:00 02/03/22 12:00 02/03/22 12:00 02/03/22 12:00 02/03/22 12:00 General: Alert, In no apparent distress, Oriented x3 Laboratory Data at Discharge: WBC 8.1 K/uL (4.3-10.9) 01/31/22 05:18 Hgb 11.4 g/dL (13.6-17.9) L 01/31/22 05:18 Hct 37.0 % (39.6-49.0) L 01/31/22 05:18 Plt Count 99 K/uL (152-406) L D 01/31/22 05:18 PT 14.9 SECONDS (9.5-12.5) H 01/30/22 13:22 INR 1.35 01/30/22 13:22 Sodium 142 mmol/L (136-145) 01/31/22 05:18 Potassium 3.6 mmol/L (3.5-5.1) 01/31/22 05:18 BUN 25 mg/dL (7-18) H 01/31/22 05:18 Creatinine 0.71 mg/dL (0.55-1.3) 01/31/22 05:18 Glucose 130 mg/dL (74-106) H 01/31/22 05:18 Magnesium 2.0 mg/dL (1.8-2.4) 01/31/22 05:18 Total Bilirubin 0.7 mg/dL (0.2-1.0) 01/31/22 05:18 AST 22 U/L (15-37) 01/31/22 05:18 ALT 61 U/L (12-78) 01/31/22 05:18 Alkaline Phosphatase 59 U/L (45-117) 01/31/22 05:18 Triglycerides 106 mg/dL (<150) 01/31/22 05:18 Cholesterol 130 mg/dL (<200) 01/31/22 05:18 HDL Cholesterol 28 mg/dL (40-60) L 01/31/22 05:18 Cholesterol/HDL Ratio 4.64 01/31/22 05:18 Home Medications: Acetaminophen 650 mg PO Q6H PRN 01/31/22 Albuterol Sulfate [Albuterol Sulfate 0.083% Neb Soln] 2.5 mg IH Q6H PRN 01/31/22 Amlodipine Besylate [Norvasc] 10 mg PO DAILY 01/31/22 Arformoterol Tartrate 15 mcg IH BID 01/31/22 Atorvastatin Calcium 40 mg PO BEDTIME 01/31/22 Budesonide [Pulmicort] 1 puff IH BID 01/31/22 Furosemide [Lasix] 10 mg IJ DAILY 01/31/22 Lidocaine 4% Patch [Lidoderm 5% Patch*] 1 patch TD DAILY 01/31/22 Lisinopril [Zestril] 10 mg PO DAILY 01/31/22 Loperamide [Imodium*] 2 mg PO Q8H PRN 01/31/22 Melatonin 6 mg PO BEDTIME 01/31/22 Metoprolol Tartrate [Lopressor*] 25 mg PO BID 01/31/22 Paroxetine HCl [Paxil] 20 mg PO DAILY 01/31/22 Potassium Chloride [Klor-Con M20] 20 meq PO DAILY 01/31/22 Rivaroxaban [Xarelto] 20 mg PO DAILY 01/31/22 Spironolactone 25 mg PO DAILY 01/31/22 Albuterol Neb [Proventil 0.083% Neb Soln] 2.5 mg NEB [id number] #60 amp 02/03/22 Budesonide [Pulmicort*] 0.5 mg NEB BIDRESP #60 amp 02/03/22 Diltiazem Cd [Cardizem Cd*] 120 mg PO DAILY #30 cap 02/03/22 Ipratropium Neb [Atrovent*] 0.5 mg NEB [id number] #60 amp 02/03/22 acetaZOLAMIDE [Acetazolamide] 125 mg PO BID #60 tablet 02/03/22 levoFLOXacin [Levaquin*] 750 mg PO DAILY #5 tab 02/03/22 predniSONE [Deltasone] 20 mg PO BID #20 tab 02/03/22 New Medications: acetaZOLAMIDE [Acetazolamide] 125 mg PO BID #60 tablet Ipratropium Neb [Atrovent*] 0.5 mg NEB [id number] #60 amp Diltiazem Cd [Cardizem Cd*] 120 mg PO DAILY #30 cap levoFLOXacin [Levaquin*] 750 mg PO DAILY #5 tab predniSONE [Deltasone] 20 mg PO BID #20 tab Albuterol Neb [Proventil 0.083% Neb Soln] 2.5 mg NEB [id number] #60 amp Budesonide [Pulmicort*] 0.5 mg NEB BIDRESP #60 amp Physician Discharge Instructions: -DC IV and DC home -Follow-up with PCP in 1 to 2 weeks -Follow-up with pulmonary in 1 to 2 weeks -Please call Dr. Munguia at [phone] if any questions regarding hospital stay -Please call nursing station at [phone] if any nursing or medication questions -Return to the emergency room if symptoms worsen Diet: AHA Activity: Fall precautions Time spent managing pt's care (in minutes): 35
== END 2022-02-03 13:20 | disposition home health service (06) | DRG 189 ==
LOC: ER 11:56 → ERHOLD 18:17 → 2ND 21:45
PROVIDERS: ADMIT Hospitalist; ATTEND Hospitalist
PROC: 5A09457 Assistance with Respiratory Ventilation, 24-96 Consecutive Hours, Continuous Positive Airway Pressure (ICD-10-PCS; principal; 2022-01-30)
DX: J96.22 Acute and chronic respiratory failure with hypercapnia (principal); I50.33 Acute on chronic diastolic (congestive) heart failure; J44.1 Chronic obstructive pulmonary disease with (acute) exacerbation; Z68.43 Body mass index [BMI] 50.0-59.9, adult; J96.21 Acute and chronic respiratory failure with hypoxia; R27.0 Ataxia, unspecified; R25.1 Tremor, unspecified; I48.91 Unspecified atrial fibrillation; I11.0 Hypertensive heart disease with heart failure; E66.01 Morbid (severe) obesity due to excess calories; Z87.891 Personal history of nicotine dependence; Z20.822 Contact with and (suspected) exposure to COVID-19
CPT/HCPCS: 36415; 71045; 80048; 80053; 80061; 80076; 82805; 83735; 83880; 84443; 84484; 85025; 85610; 93005; 93306; 94640; 94660; 94760; 96374; 97116; 97161; 97530; 99285; J1160; J1650; J1720; J2001; J7030; J7040; J7605; P9047; U0003

== ENCOUNTER 2022-09-10 14:06 | Emergency (ER) | payer OTHER ==
[2022-09-10] MEDS ORDERED: METOPROLOL TARTRATE 5 MG/5 ML INJ IV ONE (14:34)
[2022-09-10] MEDS ORDERED: DIGOXIN 0.25 MG/ML AMP ONE (14:34)
--- NOTE | 2022-09-10 14:41 | RAD REPORT ---
EXAM DESCRIPTION: RAD - Chest Single View - 09/10/2022 2:35 pm CLINICAL HISTORY: Cough COMPARISON: Chest Single View dated 01/30/2022; Chest Single View dated 12/27/2021; Chest Single View dated 12/21/2021; Chest Single View dated 12/17/2021; Chest Single View dated 05/25/2016 FINDINGS: Lines: None. Lungs: Diffuse prominence of the pulmonary interstitium. Pleural: Difficult to exclude small pleural effusions. Cardiac: Cardiomegaly. Mediastinum: Within normal limits. Bones: No acute fractures. Other: None IMPRESSION: Increased pulmonary vascular markings bilaterally concerning for developing pulmonary ed zaina.
[2022-09-10 14:44] LABS: Arterial Blood Carboxyhemoglob 1.7 % (0-1.5); Blood Gas Oxyhemoglobin 93.6 % (94-97); Blood O2 Saturation 96.2 % (92-98.5)
[2022-09-10 15:01] LABS: Absolute Lymphocytes (CBC) 0.7 K/uL (0.7-4.9); Hematocrit 47.2 % (39.6-49.0); Lymphocytes % 7.1 % (15.3-44.8); MCV 80.6 fL (80-100); MPV 9.1 fL (7.6-11.3); RBC Red Blood Cell Count 5.85 M/uL (4.33-5.43)
[2022-09-10 15:03] LABS: Protime INR 2.79
[2022-09-10] MEDS ORDERED: LEVALBUTEROL 1.25 MG/3 ML NEB ONE ×2 (15:09→19:38)
[2022-09-10] MEDS ORDERED: IPRATROPIUM BROM 0.5MG/2.5ML ONE (15:09)
[2022-09-10] MEDS ORDERED: FAMOTIDINE 20 MG/2 ML VIAL IV ONE (15:17)
[2022-09-10] MEDS ORDERED: FUROSEMIDE 40 MG/4 ML VIAL ONE (15:17)
[2022-09-10] MEDS ORDERED: METHYLPREDNISOLONE 125 MG INJ ONE (15:17)
[2022-09-10 15:27] LABS: Albumin 3.2 g/dL (3.4-5.0); Bilirubin Direct 1.5 mg/dL (0-0.2); Bilirubin Total 2.1 mg/dL (0.2-1.0); Potassium 4.4 mmol/L (3.5-5.1); Protein, Total 6.7 g/dL (6.4-8.2)
[2022-09-10 15:35] LABS: Urine Blood 3+ (Negative); Urine Glucose Trace (Negative); Urine Protein 2+ (Negative); Urine Specific Gravity >=1.030 (1.005-1.030)
[2022-09-10] MEDS ORDERED: NA CHLORIDE 0.9% 1,000 ML ONE ×2 (16:07→19:51)
[2022-09-10] MEDS ORDERED: CEFTRIAXONE 2000 MG/VIAL ONE (16:48)
--- NOTE | 2022-09-10 17:03 | RAD REPORT ---
EXAM DESCRIPTION: CT - Head C Spine Cap Wo Con - 09/10/2022 4:43 pm CLINICAL HISTORY: Trauma, head and neck injury. Chest, abdomen and pelvis pain. FALL COMPARISON: No comparisons TECHNIQUE: CT head without contrast. CT cervical spine without contrast with coronal and sagittal reformatted images. CT chest, abdomen and pelvis with coronal and sagittal reformatted images of the spine. All CT scans are performed using dose optimization technique as appropriate and may include automated exposure control or mA/KV adjustment according to patient size. FINDINGS: CT HEAD WITHOUT CONTRAST: No intracranial hemorrhage, hydrocephalus or extra-axial fluid collection. No acute large vascular te rritory infarct. Age advanced cerebral atrophy. The paranasal sinuses and mastoids are clear. The calvarium is intact. CT CERVICAL SPINE WITHOUT CONTRAST: No fracture or subluxation. The prevertebral soft tissues are normal in thickness. CT CHEST, ABDOMEN, PELVIS: Thorax: Chest Wall: No abnormal mass Lungs: Atelectasis noted. Limited by motion artifact. Overall, the lung volumes are low. Pleura: No effusions or pneumothorax. [place]/Mediastinum: No lymphadenopathy. Aorta/Pulmonary Arteries: Unremarkable Heart: Cardiomegaly. Abdomen/Pelvis: Liver: No acute abnormality or suspicious lesions. Biliary: Cholelithiasis. Stomach: No significant focal abnormality. Duodenum: No significant focal abnormality. Pancreas: No significant abnormality. Spleen: No significant abnormality. Adrenal: No suspicious lesions. Kidney/ureter: No hydronephrosis. Nonobstructing stone in left kidney. Retroperitoneum: No retroperitoneal adenopathy. Vascular: No aneurysm. Bowel: Diverticulosis without diverticulitis.. Peritoneum: No ascites or free air. Bladder: Thompson catheter in the bladder. Reproductive: No adnexal masses. Bones: No acute fracture. Rib fractures difficult to entirely exclude due to the degree of motion. Mo tion artifact limits evaluation of the sternum. Other: n/a IMPRESSION: 1. No acute intracranial abnormality. 2. No acute fracture or traumatic malalignment of the cervical spine. 3. No evidence of significant trauma to the chest abdomen, or pelvis.
--- NOTE | 2022-09-10 17:16 | RAD REPORT ---
EXAM DESCRIPTION: US - Abdomen Exam Limited - 09/10/2022 5:10 pm CLINICAL HISTORY: ABD PAIN COMPARISON: Renal Ultrasound-Complete dated 12/07/2021 FINDINGS: The gallbladder demonstrates no gallstones. No pericholecystic fluid or gallbladder wall t hickening. The common bile duct is normal measuring 4 mm. The liver demonstrates no findings of intrahepatic biliary dilatation. IMPRESSION: Negative for cholelithiasis or acute cholecystitis. No biliary ductal dilatation.
[2022-09-10 17:51] LABS: CKMB Creatine Kinase MB 2.2 ng/mL (1.0-3.6)
--- NOTE | 2022-09-10 17:53 | ER ---
Nurse's Notes [facility] Name: Sean Lindsey Age: 62 yrs Sex: Male : 1960 Arrival Date: 09/10/2022 Time: 14:20 Bed 28 Private MD: Diagnosis: Cardiomegaly;Unspecified combined systolic (congestive) and diastolic (congestive) heart failure;Persistent atrial fibrillation-WITH RVR;Acute kidney failure, unspecified;Liver disease, unspecified;termite helper (current) use of anticoagulants-XARELTO;Morbid (severe) obesity with alveolar hypoventilation Presentation: 09/10 14:22 Chief complaint: EMS states: Toned out for difficulty breathing, pt 60% on RA at home, jl7 HR 138 A. Fib, A\T\Ox1 at home. Put on NRB and O2 up to 98%. 125 mg Solu-Medrol IVP given in route. Coronavirus screen: difficulty breathing. Ebola Screen: No symptoms or risks identified at this time. Initial Sepsis Screen: Does the patient meet any 2 criteria? RR > 20 per min. Altered Mental Status. HR > 90 bpm. Does the patient have a suspected source of infection? No. Patient's initial sepsis screen is negative. Risk Assessment: Do you want to hurt yourself or someone else? Patient reports no desire to harm self or others. Onset of symptoms is unknown. Care prior to arrival: Medication(s) given: 125 mg Solu-medrol IV initiated. 20 GA, in the right hand. 14:22 Method Of Arrival: EMS: [facility] 14:22 Acuity: IHSAN 2 jl7 Historical: - Allergies: 14:27 GABAPENTIN; jl7 - Home Meds: 14:27 amlodipine-benazepril 40-20 mg Oral cap 1 cap once daily [Active]; atorvastatin 40 mg jl7 Oral tab 1 tab once daily [Active]; gabapentin 300 mg Oral cap 1 cap 3 times per day [Active]; metoprolol tartrate 50 mg Oral tab 1 tab once daily [Active]; paroxetine HCl 30 mg Oral tab 1 tab once daily [Active]; ProAir HFA 90 mcg/actuation inhalation HFAA 1 puff every 6 hours [Active]; tramadol 50 mg Oral tab 1 tab every 8 hours as needed [Active]; Xarelto 20 mg Oral tab 1 tab once daily [Active]; - PMHx: 14:27 Atrial Fib; CHF; COPD; Hyperlipidemia; Hypertension; jl7 - Immunization history:: Adult Immunizations unknown. - Social history:: Smoking status: Patient reports the use of cigarette tobacco products. Screenin:53 [facility] ED Fall Risk Assessment (Adult) Confusion or Disorientation Yes (5 pts) ll1 Impaired Gait Yes (1 pt) Mobility Assist Device Used Yes (1 pt) Score/Fall Risk Level 3 or more points = High Risk Oriented to surroundings, Maintained a safe environment, Educated pt \T\ family on fall prevention, incl call for assistance when getting out of bed, Hourly rounding (assess needs \T\ fall precautionary measures) done, Implemented a Fall Risk Plan of Care, Remained with patient while ambulating, Utilized family, sitter, or virtual filenet admin as indicated. Abuse screen: Denies threats or abuse. Nutritional screening: No deficits noted. Tuberculosis screening: No symptoms or risk factors identified. Assessment: 15:04 Reassessment: No changes from previously documented assessment. Patient and/or family ll1 updated on plan of care and expected duration. Pain level reassessed. Patient is alert, oriented x 3, equal unlabored respirations, skin warm/dry/pink. 15:30 Reassessment: No changes from previously documented assessment. Patient and/or family ll1 updated on plan of care and expected duration. Pain level reassessed. Patient is alert, oriented x 3, equal unlabored respirations, skin warm/dry/pink. 16:09 Reassessment: No changes from previously documented assessment. Patient and/or family ll1 updated on plan of care and expected duration. Pain level reassessed. Patient is alert, oriented x 3, equal unlabored respirations, skin warm/dry/pink. 16:53 Reassessment: No changes from previously documented assessment. Patient and/or family ll1 updated on plan of care and expected duration. Pain level reassessed. Patient is alert, oriented x 3, equal unlabored respirations, skin warm/dry/pink. 18:00 Reassessment: No changes from previously documented assessment. Patient and/or family ll1 updated on plan of care and expected duration. Pain level reassessed. Patient is alert, oriented x 3, equal unlabored respirations, skin warm/dry/pink. 19:00 Reassessment: No changes from previously documented assessment. Patient and/or family ll1 updated on plan of care and expected duration. Pain level reassessed. Patient is alert, oriented x 3, equal unlabored respirations, skin warm/dry/pink. 20:23 Reassessment: No changes from previously documented assessment. Patient and/or family ll3 updated on plan of care and expected duration. Pain level reassessed. 20:47 Cardiovascular: Rhythm is atrial fibrillation. ll3 Vital Signs: 14:22 BP 113 / 65; Pulse 170; Resp 28; Temp 97.9; Pulse Ox 77% on R/A; Weight 154.67 kg (R); jl7 Height 5 ft. 9 in. (175.26 cm); 14:31 BP 126 / 95; Pulse 166; Resp 29; Pulse Ox 100% on BiPAP; jl7 14:42 BP 123 / 90; Pulse 143; jl7 15:04 BP 127 / 94; Pulse 108; Resp 24; Pulse Ox 94% ; ll1 15:30 BP 135 / 79; Pulse 111; Resp 20; Pulse Ox 94% on BiPAP; ll1 16:53 BP 111 / 87; Pulse 106; Resp 22; Pulse Ox 100% on BiPAP; ll1 19:00 BP 139 / 97; Pulse 102; Resp 18; Pulse Ox 93% on BiPAP; ll1 20:23 BP 105 / 84; Pulse 107; Resp 16; Pulse Ox 98% on BiPAP; ll3 21:36 BP 112 / 74; Pulse 101; Resp 21; Pulse Ox 96% on BiPAP; ll3 14:22 Body Mass Index 50.36 (154.67 kg, 175.26 cm) jl7 ED Course: 14:20 Patient arrived in ED. jl7 14:21 Azael Baez MD is Attending Physician. [facility] 14:27 Triage completed. jl7 14:27 Arm band placed on right wrist. EKG completed in triage. Results shown to . jl7 14:30 First set of blood cultures drawn. Maintain EMS IV. Dressing intact. Good blood return ll1 noted. Site clean \T\ dry. Gauge \T\ site: 20 G R hand. 14:31 Jose Peoples RN is Primary Nurse. ll1 14:37 XRAY Chest (1 view) In Process Unspecified. EDMS 14:39 Inserted saline lock: 22 gauge in left antecubital area, using aseptic technique. ll1 15:25 Thompson cath inserted, using sterile technique, 16 Fr., by il, balloon inflated, to ll1 gravity drainage, urine specimen collected. 16:45 Head C Spine Cap Wo Con In Process Unspecified. EDMS 16:54 Patient has correct armband on for positive identification. Bed in low position. Call ll1 light in reach. Side rails up X2. Client placed on continuous cardiac and pulse oximetry monitoring. NIBP monitoring applied. fire alarm mechanic on. 17:12 US Abdomen Limited In Process Unspecified. EDMS 18:02 Note: PT'S SISTER DAYANARA LINDSEY IS LEAVING FOR THE EVENING, WILL CALL IN LATER FOR UPDATE az ON PATIENT. WAITING TO SEE WHEN HE WILL BE MOVED UPSTAIRS. 19:34 administrative approval given by Reina Peña/ patient has been accepted to [address] [facility] 8 B bed 822/ Dr. Valerio accepted the patient in transfer/report to be called to [phone]. 20:46 No provider procedures requiring assistance completed. Patient transferred, IV remains ll3 in place. Administered Medications: 14:33 Drug: Lopressor (metoprolol) 2.5 mg Route: IVP; Site: right hand; jl7 14:40 Follow up: Response: No adverse reaction; No change in condition jl7 14:37 Drug: Digoxin 0.5 mg Route: IVP; Site: right hand; jl7 16:14 Follow up: Response: No adverse reaction ll1 14:42 Drug: Lopressor (metoprolol) 2.5 mg Route: IVP; Site: right hand; jl7 14:47 Follow up: Response: No adverse reaction; No change in condition jl7 14:47 Drug: Lopressor (metoprolol) 2.5 mg Route: IVP; Site: right hand; jl7 16:15 Follow up: Response: No adverse reaction ll1 15:15 Drug: Xopenex (levalbuterol) 3.75 mg Route: Inhalation; ll1 16:15 Follow up: Response: No adverse reaction ll1 15:15 Drug: AtroVENT (ipratropium) Aerosol 0.5 mg Route: Inhalation; ll1 16:15 Follow up: Response: No adverse reaction ll1 15:20 Drug: Lasix (furosemide) 40 mg Route: IVP; Site: left antecubital; ll1 16:15 Follow up: Response: No adverse reaction ll1 15:21 Drug: SOLU-Medrol (methylPrednisoLONE) 125 mg Route: IVP; Site: left antecubital; ll1 16:15 Follow up: Response: No adverse reaction ll1 15:22 Drug: Pepcid (famotidine) 20 mg Route: IVP; Site: left antecubital; ll1 16:15 Follow up: Response: No adverse reaction ll1 16:07 CANCELLED (Duplicate Order): NS 0.45 % 1000 ml IV at 125 ml/hr continuous isabel 16:08 Drug: NS 0.9% 1000 ml Route: IV; Rate: 1 bolus; Site: left antecubital; ll1 16:53 Drug: Rocephin (cefTRIAXone) 2 grams Route: IV; Rate: per protocol; Site: left ll1 antecubital; 19:40 Drug: Xopenex (levalbuterol) 2.5 mg Route: Inhalation; ll3 20:46 Follow up: Response: No adverse reaction ll3 20:00 Drug: NS 0.9% 1000 ml Route: IV; Rate: 125 ml/hr; Site: right hand; ll3 20:46 Follow up: Response: No adverse reaction; IV Status: Infusion continued upon transfer; ll3 IV Intake: 50ml Medication: 16:54 VIS not applicable for this client. ll1 Intake: 20:46 IV: 50ml; Total: 50ml. ll3 Outcome: 17:53 ER care complete, transfer ordered by . [facility] 20:46 Transferred by ground EMS to [facility], Transfer form ll3 completed. X-rays sent w/ patient. 20:46 Condition: stable 20:46 Discharge instructions given to patient, EMS, Instructed on the need for transfer, Demonstrated understanding of instructions. 21:36 Patient left the ED. ll3 Signatures: Dispatcher [employer] EDAzael Quesada MD MD cha Leal, Jahala, RN RN jl7 Chad Pal mw2 Ying Bowens Lynsay, RN RN ll1 Ann Rosa RN RN ll3 Corrections: (The following items were deleted from the chart) 15:28 15:28 AtroVENT (ipratropium) Aerosol 0.5 mg Inhalation ll1 ll1
--- NOTE | 2022-09-10 17:53 | EDPHYS ---
Physician Documentation [facility] Name: Sean Hayden Age: 62 yrs Sex: Male : 1960 Arrival Date: 09/10/2022 Time: 14:20 Bed 28 Private MD: ED Physician Azael Baez HPI: 09/10 15:48 This 62 yrs old Male presents to ER via EMS with complaints of Breathing isabel Difficulty. 15:48 The patient has shortness of breath at rest. Onset: The symptoms/episode began/occurred isabel 5 day(s) ago. Duration: The symptoms are continuous, and are steadily getting worse. The patient's shortness of breath is aggravated by nothing, is alleviated by nothing. Associated signs and symptoms: Pertinent positives: non-productive cough, dizziness. Severity of symptoms: At their worst the symptoms were moderate in the emergency department the symptoms are unchanged. The patient has experienced similar episodes in the past, several times. Historical: - Allergies: 14:27 GABAPENTIN; jl7 - Home Meds: 14:27 amlodipine-benazepril 40-20 mg Oral cap 1 cap once daily [Active]; atorvastatin 40 mg jl7 Oral tab 1 tab once daily [Active]; gabapentin 300 mg Oral cap 1 cap 3 times per day [Active]; metoprolol tartrate 50 mg Oral tab 1 tab once daily [Active]; paroxetine HCl 30 mg Oral tab 1 tab once daily [Active]; ProAir HFA 90 mcg/actuation inhalation HFAA 1 puff every 6 hours [Active]; tramadol 50 mg Oral tab 1 tab every 8 hours as needed [Active]; Xarelto 20 mg Oral tab 1 tab once daily [Active]; - PMHx: 14:27 Atrial Fib; CHF; COPD; Hyperlipidemia; Hypertension; jl7 - Immunization history:: Adult Immunizations unknown. - Social history:: Smoking status: Patient reports the use of cigarette tobacco products. ROS: 15:50 Constitutional: Negative for fever, chills, and weight loss, Eyes: Negative for injury, isabel pain, redness, and discharge, ENT: Negative for injury, pain, and discharge, Neck: Negative for injury, pain, and swelling, Abdomen/GI: Negative for abdominal pain, nausea, vomiting, diarrhea, and constipation, Back: Negative for injury and pain, : Negative for injury, bleeding, discharge, and swelling, MS/Extremity: Negative for injury and deformity, Skin: Negative for injury, rash, and discoloration, Psych: Negative for depression, anxiety, suicide ideation, homicidal ideation, and hallucinations, Allergy/Immunology: Negative for hives, rash, and allergies, Endocrine: Negative for neck swelling, polydipsia, polyuria, polyphagia, and marked weight changes. 15:50 Neck: Negative for injury or acute deformity, mass, swollen nodes, tenderness. 15:50 Cardiovascular: Positive for palpitations. 15:50 Respiratory: Positive for cough, shortness of breath, at rest. 15:50 Abdomen/GI: Positive for abdominal distension. 15:50 Back: Positive for decreased range of motion, pain at rest, Negative for injury or acute deformity. 15:50 : Positive for small amounts, difficulty urinating. 15:50 MS/extremity: Positive for decreased range of motion. 15:50 Neuro: Positive for altered mental status, weakness. Exam: 15:50 Constitutional: This is a well developed, well nourished patient who is awake, alert, isabel and in no acute distress. Head/Face: Normocephalic, atraumatic. Eyes: Pupils equal round and reactive to light, extra-ocular motions intact. Lids and lashes normal. Conjunctiva and sclera are non-icteric and not injected. Cornea within normal limits. Periorbital areas with no swelling, redness, or edema. ENT: Nares patent. No nasal discharge, no septal abnormalities noted. Tympanic membranes are normal and external auditory canals are clear. Oropharynx with no redness, swelling, or masses, exudates, or evidence of obstruction, uvula midline. Mucous membranes moist. Neck: Trachea midline, no thyromegaly or masses palpated, and no cervical lymphadenopathy. Supple, full range of motion without nuchal rigidity, or vertebral point tenderness. No Meningismus. Abdomen/GI: Soft, non-tender, with normal bowel sounds. No distension or tympany. No guarding or rebound. No evidence of tenderness throughout. 15:50 Chest/axilla: Exam negative for 15:50 Cardiovascular: Rate: tachycardic, actual rate is 153 bpm, Rhythm: irregularly irregular, Pulses: Pulses are 4+ in bilateral radial, brachial, femoral, popliteal, posterior tibial and and dorsalis pedis arteries.. Heart sounds: normal, Edema: is not appreciated, JVD: is not appreciated. 15:50 ECG was reviewed by the Attending Physician. Vital Signs: 14:22 BP 113 / 65; Pulse 170; Resp 28; Temp 97.9; Pulse Ox 77% on R/A; Weight 154.67 kg (R); jl7 Height 5 ft. 9 in. (175.26 cm); 14:31 BP 126 / 95; Pulse 166; Resp 29; Pulse Ox 100% on BiPAP; jl7 14:42 BP 123 / 90; Pulse 143; jl7 15:04 BP 127 / 94; Pulse 108; Resp 24; Pulse Ox 94% ; ll1 15:30 BP 135 / 79; Pulse 111; Resp 20; Pulse Ox 94% on BiPAP; ll1 16:53 BP 111 / 87; Pulse 106; Resp 22; Pulse Ox 100% on BiPAP; ll1 19:00 BP 139 / 97; Pulse 102; Resp 18; Pulse Ox 93% on BiPAP; ll1 20:23 BP 105 / 84; Pulse 107; Resp 16; Pulse Ox 98% on BiPAP; ll3 21:36 BP 112 / 74; Pulse 101; Resp 21; Pulse Ox 96% on BiPAP; ll3 14:22 Body Mass Index 50.36 (154.67 kg, 175.26 cm) jl7 MDM: 14:21 Patient medically screened. isabel 15:55 Differential diagnosis: Anemia asthma, Bronchitis CHF exacerbation, Chronic Obstructive isabel Pulmonary Disease Myocardial Infarction pneumonia, pulmonary edema, reactive airway disease, Sepsis Unstable Angina. Antibiotic administration: ROCEPHIN. Differential Diagnosis altered mental status, sepsis, flu. Differential Diagnosis: CVA, electrolyte abnormality, hypoglycemia, intracranial bleed, pneumonia, seizure, sepsis, TIA, UTI, volume depletion. The patient's Wells Deep Vein Thrombosis Score was calculated as follows: Heart Rate >100 BPM (1.5 Pts) Total Score: 0-2 Pts- Low Risk. The patient's pulmonary embolism risk score was calculated as follows: the patients heart rate is greater than 100 beats per minute (1.5 Pts) Total Score: 0-2 points. This patient was found to be at low risk for a pulmonary embolism by using the Well's assessment criteria. Immunization status: Influenza vaccine: Data reviewed: vital signs, nurses notes, EMS record, lab test result(s), EKG, radiologic studies. 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 Test interpretation: by ED physician or midlevel provider: ECG, plain radiologic studies. Counseling: I had a detailed discussion with the patient and/or guardian regarding: the historical points, exam findings, and any diagnostic results supporting the discharge/admit diagnosis, lab results, radiology results. 09/10 14:23 Order name: Basic Metabolic Panel; Complete Time: 15:37 [facility] 09/10 14:23 Order name: CBC with Diff; Complete Time: 15:19 [facility] 09/10 14:23 Order name: LFT's; Complete Time: 15:37 [facility] 09/10 14:23 Order name: Magnesium; Complete Time: 15:37 [facility] 09/10 14:23 Order name: NT PRO-BNP; Complete Time: 15:37 [facility] 09/10 14:23 Order name: PT-INR; Complete Time: 15:19 [facility] 09/10 14:23 Order name: Troponin HS; Complete Time: 15:37 [facility] 09/10 14:23 Order name: Lipase; Complete Time: 15:37 [facility] 09/10 14:23 Order name: Blood Culture Adult (2) [facility] 09/10 14:23 Order name: Lactate w/ 2H reflex if indic.; Complete Time: 15:29 [facility] 09/10 14:23 Order name: Urine Culture [facility] 09/10 14:23 Order name: ABG; Complete Time: 17:05 [facility] 09/10 14:25 Order name: TSH; Complete Time: 17:05 [facility] 09/10 15:35 Order name: Urine Dipstick-Ancillary; Complete Time: 15:37 [facility] 09/10 14:23 Order name: XRAY Chest (1 view); Complete Time: 15:02 [facility] 09/10 14:23 Order name: BIPAP [facility] 09/10 15:31 Order name: CT Traumagram (Head C Spine CAP wo con) [facility] 09/10 15:34 Order name: US Abdomen Limited; Complete Time: 17:49 [facility] 09/10 15:35 Order name: Head C Spine Cap Wo Con; Complete Time: 17:05 [facility] 09/10 17:15 Order name: CK; Complete Time: 17:53 [facility] 09/10 17:15 Order name: Ckmb; Complete Time: 17:53 [facility] 09/10 17:15 Order name: AMMONIA; Complete Time: 18:22 [facility] 09/10 18:37 Order name: ABG Arterial Blood Gas; Complete Time: 18:49 [facility] 09/10 14:23 Order name: EKG; Complete Time: 14:24 [facility] 09/10 14:23 Order name: Cardiac monitoring; Complete Time: 14:28 [facility] 09/10 14:23 Order name: EKG - Nurse/Tech; Complete Time: 14:28 [facility] 09/10 14:23 Order name: IV Saline Lock; Complete Time: 15:03 [facility] 09/10 14:23 Order name: Labs collected and sent; Complete Time: 15:03 [facility] 09/10 14:23 Order name: O2 Per Protocol; Complete Time: 14:28 [facility] 09/10 14:23 Order name: O2 Sat Monitoring; Complete Time: 14:28 [facility] 09/10 14:23 Order name: Urine Dipstick-Ancillary (obtain specimen); Complete Time: 15:29 [facility] 09/10 14:23 Order name: Thompson; Complete Time: 15:29 [facility] 09/10 14:23 Order name: IV Saline Lock - Large Bore; Complete Time: 15:29 [facility] EC:50 Rate is 153 beats/min. Rhythm is irregularly irregular. QRS [place] is Normal. VA interval isabel is normal. QRS interval is normal. No Q waves. T waves are Normal. Clinical impression: Atrial Fibrillation. Interpreted by me. Reviewed by me. Administered Medications: 14:33 Drug: Lopressor (metoprolol) 2.5 mg Route: IVP; Site: right hand; jl7 14:40 Follow up: Response: No adverse reaction; No change in condition jl7 14:37 Drug: Digoxin 0.5 mg Route: IVP; Site: right hand; jl7 16:14 Follow up: Response: No adverse reaction ll1 14:42 Drug: Lopressor (metoprolol) 2.5 mg Route: IVP; Site: right hand; jl7 14:47 Follow up: Response: No adverse reaction; No change in condition jl7 14:47 Drug: Lopressor (metoprolol) 2.5 mg Route: IVP; Site: right hand; jl7 16:15 Follow up: Response: No adverse reaction ll1 15:15 Drug: Xopenex (levalbuterol) 3.75 mg Route: Inhalation; ll1 16:15 Follow up: Response: No adverse reaction ll1 15:15 Drug: AtroVENT (ipratropium) Aerosol 0.5 mg Route: Inhalation; ll1 16:15 Follow up: Response: No adverse reaction ll1 15:20 Drug: Lasix (furosemide) 40 mg Route: IVP; Site: left antecubital; ll1 16:15 Follow up: Response: No adverse reaction ll1 15:21 Drug: SOLU-Medrol (methylPrednisoLONE) 125 mg Route: IVP; Site: left antecubital; ll1 16:15 Follow up: Response: No adverse reaction ll1 15:22 Drug: Pepcid (famotidine) 20 mg Route: IVP; Site: left antecubital; ll1 16:15 Follow up: Response: No adverse reaction ll1 16:07 CANCELLED (Duplicate Order): NS 0.45 % 1000 ml IV at 125 ml/hr continuous isabel 16:08 Drug: NS 0.9% 1000 ml Route: IV; Rate: 1 bolus; Site: left antecubital; ll1 16:53 Drug: Rocephin (cefTRIAXone) 2 grams Route: IV; Rate: per protocol; Site: left ll1 antecubital; 19:40 Drug: Xopenex (levalbuterol) 2.5 mg Route: Inhalation; ll3 20:46 Follow up: Response: No adverse reaction ll3 20:00 Drug: NS 0.9% 1000 ml Route: IV; Rate: 125 ml/hr; Site: right hand; ll3 20:46 Follow up: Response: No adverse reaction; IV Status: Infusion continued upon transfer; ll3 IV Intake: 50ml Disposition Summary: 09/10/22 17:53 Transfer Ordered Transfer Location: [facility] isabel Reason: Higher level of care isabel Condition: Fair isabel Problem: new isabel Symptoms: have improved isabel Accepting Physician: TO ALEX BYRD(09/10/22 21:36) ll3 Diagnosis - Cardiomegaly isabel - Unspecified combined systolic (congestive) and diastolic (congestive) heart failure isabel - Persistent atrial fibrillation - WITH RVR isabel - Acute kidney failure, unspecified isabel - Liver disease, unspecified isabel - 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 EDMS EDMS 16:07 16:04 NS 0.45 % 1000 ml IV at 125 ml/hr continuous ordered. [facility] isabel 18:52 17:53 TO [facility] isabel 20:45 15:59 Central Line Kit ordered. [facility]3 21:36 18:52 TO [facility]3
[2022-09-10 18:35] LABS: Arterial Blood Carboxyhemoglob 1.7 % (0-1.5); Blood Gas Oxyhemoglobin 94.1 % (94-97); Blood O2 Saturation 96.7 % (92-98.5)
[2022-09-10 21:52] VITALS: TEMP 97.9
[2022-09-10 22:03] VITALS: BP 112/74; O2SAT 96
--- NOTE | 2022-09-11 13:40 | EKG ---
Test Date: 2022-09-10 Test Time: 14:16:14 Senior Climate Advisor: LAKHWINDER MEASUREMENT RESULTS: Intervals: Rate: 153 AK: QRSD: 106 QT: 298 QTc: 475 [place]: P: AK: QRS: 150 T: 3 INTERPRETIVE STATEMENTS: Atrial fibrillation with rapid ventricular response Indeterminate axis Incomplete right bundle branch block Possible Right ventricular hypertrophy Abnormal ECG Compared to ECG 01/30/2022 14:36:26 Indeterminate axis now present Incomplete right bundle-branch block now present ST (T wave) deviation no longer present Electronically Signed On 09-11-22 13:38:23 SOLUTION DEVELOPER by Mat Arias
== END 2022-09-10 21:36 | disposition short-term general hospital (02) ==
LOC: ER 14:06
DX: I48.19 Other persistent atrial fibrillation (principal); E66.2 Morbid (severe) obesity with alveolar hypoventilation; N17.9 Acute kidney failure, unspecified; I50.40 Unspecified combined systolic (congestive) and diastolic (congestive) heart failure; I51.7 Cardiomegaly; Z79.01 Long term (current) use of anticoagulants; K76.9 Liver disease, unspecified; I10 Essential (primary) hypertension; Z72.0 Tobacco use; Z88.8 Allergy status to other drugs, medicaments and biological substances
CPT/HCPCS: 93005; 87040 ×2; 87088; 85025; 87086; 80048; 36415; 82140; 83735; 82550; 87205; 85610; 80076; 83605; 84443; 81003; 84484; 82553; 83690; 83880; 70450; 71250; 72125; 71045; 76705; 82805 ×2; 94660; J1160; J7614 ×2; J1940; J7644; J7030 ×2; J2930; J0696; 51702; 99285